=== PATIENT | female | born 1950 | race Caucasian/White ===

== ENCOUNTER 2017-07-28 06:45 | Day surgery (SDC) | payer MEDICARE ==
[~2017-07-28] VITALS: Ht 152.4 cm; Wt 86.4 kg
[~2017-07-28 06:45] MED LIST: ALBU8I INH; ALEN70TA39 OR; ALPR0.25 PO; AMLO2.5T PO; ASPI81TA82 PO; ATOR40TA PO; CALTTAB2 PO; DUONSOL2 NEB; ESCI10TA PO; FURO20TA PO; LISI40TA PO; OMEP20TA39 PO; OSTETAB7 PO; OXYB5TAB PO; UMEC1INH INH
[2017-07-28 07:03] VITALS: BP 158/93; PULSE 66; RESP 18; TEMP 98.7; O2SAT 97
[2017-07-28] MEDS ORDERED: ALEN1TAB48 PO (07:13)
[2017-07-28] MEDS ORDERED: LISI10TA3 PO (07:21)
[2017-07-28] MEDS ORDERED: AMLO2.5T PO (07:21)
[2017-07-28] MEDS ORDERED: BOSW5TAB PO (07:21)
[2017-07-28] MEDS ORDERED: LACTCAP8 PO (07:21)
[2017-07-28] MEDS ORDERED: BUDE3CAP PO (07:21)
[2017-07-28] MEDS ORDERED: CALC600T55 CHEW (07:21)
[2017-07-28] MEDS ORDERED: ESCI20TA PO (07:21)
[2017-07-28] MEDS ORDERED: ALPR2TAB3 PO (07:21)
[2017-07-28] MEDS ORDERED: MAGN500T2 PO (07:21)
[2017-07-28] MEDS ORDERED: OXYB5TAB10 PO (07:21)
[2017-07-28] MEDS ORDERED: VENTAER INH (07:21)
[2017-07-28] MEDS ORDERED: ASPI81CH CHEW (07:21)
[2017-07-28] MEDS ORDERED: OMEP20TA PO (07:21)
[2017-07-28] MEDS ORDERED: ATOR40TA16 PO (07:21)
[2017-07-28] MEDS: POVIDONE IODINE 5% (ANTISEPSIS KIT) 4 APPLICATIONS EACH NARE SCH ×3 (07:30→10:00)
[2017-07-28] MEDS ORDERED: SODIUM CHLORIDE 0.9% 1000 ML IV SCH (07:30)
[2017-07-28] MEDS: CHLORHEXIDINE GLUCONATE 2 % 1 PACK (2 CLOTHS) TOPICAL SCH ×3 (07:30→10:00)
[2017-07-28] MEDS ORDERED: MIDAZOLAM HCL 2 MG/2 ML VIAL ONE ×3 (08:39→09:25)
[2017-07-28] MEDS ORDERED: VANCOMYCIN HCL 1000 MG VIAL ONE (08:39)
[2017-07-28 09:43] VITALS: BP 151/82; PULSE 59; RESP 18; TEMP 97.8; O2SAT 97
--- NOTE | 2017-07-28 09:44 | PD.RAD ---
Post Procedure Progress Note Pre Procedure Diagnosis: (1) Atypical glandular cells of undetermined significance (RANDOLPH) on cervical Pap smear Post Procedure Diagnosis: (1) Atypical glandular cells of undetermined significance (RANDOLPH) on cervical Pap smear Procedure Date: Jul 28, 2017 Supervising Radiologist: Jose Maria Cheung Proceduralist/Assist: Kg Banks, RT(R), Dianne Goldsmith RT(R) Anesthesia: Conscious Sedation Plan of Activity Patient to Unit: ROPU Patient Condition: Good Additional Comments: placed right IJ port See PACS Report for procedural detail/treatment Jose Maria Cheung MD Jul 28, 2017 09:44
[2017-07-28] MEDS ORDERED: SODIUM CHLORIDE 0.9% FLUSH 10 ML FLUSH IVF PRN (09:45)
[2017-07-28 09:58] VITALS: BP 167/88; PULSE 62; RESP 17; O2SAT 99
[2017-07-28 10:28] VITALS: BP 126/72; PULSE 67; RESP 18; O2SAT 97
[2017-07-28 10:58] VITALS: BP 125/66; PULSE 96; RESP 17; O2SAT 96
--- NOTE | 2017-07-28 11:12 | RADRPT ---
EXAM DATE/TIME: 07/28/2017 08:37 [facility] COMPARISON: No previous studies available for comparison. INDICATIONS : Patient with uterine cancer in need of [id number] placement. MEDICAL HISTORY : COPD, HTN, HLD, Pancreatitis, Colitis, GERD, Uterine papillary serous carcinoma SURGICAL HISTORY : Bilateral salpingo-oophorectomy, Hysterectomy ENCOUNTER: Initial ACUITY: 1 month PAIN SCORE: 0/10 FLUORO TIME: 0.1 minutes IMAGE SERIES: 0 SEDATION TIME: 45 minutes ACCESS: Right internal jugular vein SEDATION: 1.) 5 mg midazolam (Versed) IV 2.) 250 mcg fentanyl (Sublimaze) IV Prophylactic antibiotics were administered with appropriate pre-procedure timing. Vancomycin within 2 hours of procedure, Ancef (or alternative) within 1 hour of procedure. DEVICE: 1. 8 Arabic single lumen Smart power port with vortex PROCEDURE : 1. Continuous pulse oximetry and EKG monitoring. 2. Intravenous conscious sedation. 3. Ultrasound guidance for venous access. 4. Fluoroscopic guided implantable central venous port placement. The patient was placed supine. The neck was prepped in sterile fashion. Full sterile technique was u sed, including cap, mask, sterile gloves and gown, and a large sterile sheet. Hand hygiene and 2% ch lorhexidine Betadine was utilized per protocol for cutaneous antisepsis with appropriate dry time for site. Sterile gel and sterile probe cover were utilized for ultrasound guidance. The skin and sub cutaneous tissues were infiltrated with local anesthetic solution. Under direct ultrasound guidance, central venous access was accomplished in the targeted vessel. The ultrasound images depicting access guidance were stored and saved to PACS for permanent record. A s ubcutaneous pocket was created using blunt dissection. The port was introduced to the pocket. The c atheter tubing was fed through a subcutaneous tunnel to the venotomy site. The catheter tubing was c ut to a suitable length and then was introduced through a valved Peel-Away sheath and positioned with catheter tubing tip at the cavo-atrial junction level. The pocket incision was closed with subcutic ular Vicryl suture. Steri-Strips were applied. The port was flushed and locked with heparin solutio n per protocol. Sterile dressing was applied to the site. The patient tolerated the procedure well. Conscious sedation was performed with the prescribed dosages and duration as above in the presence of an independent trained radiology nurse to assist in the monitoring of the patient. EKG and oximetry remained stable throughout the procedure. The patient tolerated the procedure well and there were no complications. The patient was sent to post anesthesia recovery in stable condition. CONCLUSION: Uncomplicated ultrasound and fluoroscopic guided implanted central venous port catheter placement as described in detail above. An 8 Arabic Power port was placed. Jose Maria Cheung MD on July 28, 2017 at 11:10 Board Certified Radiologist. This report was verified electronically.
== END 2017-07-28 11:48 | disposition home or self-care (01) ==
LOC: HROP 06:45 → HRIP 06:49 → HROP 11:48
PROVIDERS: ATTEND Obstetrics & Gynecology Gynecologic Oncology
DX: Z45.2 Encounter for adjustment and management of vascular access device (principal); C55 Malignant neoplasm of uterus, part unspecified
CPT/HCPCS: 36561; 76937; 77001; 99152; 99153; C1788; J1642; J2250; J3010; J3370; J7030

== ENCOUNTER 2017-08-13 15:59 | Inpatient (IN) | payer MEDICARE ==
[~2017-08-13 15:59] MED LIST changes: -ALBU8I INH; +ALEN1TAB48 PO; -ALEN70TA39 OR; -ALPR0.25 PO; +ALPR2TAB3 PO; +ASPI81CH CHEW; -ASPI81TA82 PO; -ATOR40TA PO; +ATOR40TA16 PO; +BOSW5TAB PO; +BUDE3CAP PO; +CALC600T55 CHEW; -CALTTAB2 PO; -DUONSOL2 NEB; -ESCI10TA PO; +ESCI20TA PO; -FURO20TA PO; +LACTCAP8 PO; +LISI10TA3 PO; -LISI40TA PO; +MAGN500T2 PO; +OMEP20TA PO; -OMEP20TA39 PO; -OSTETAB7 PO; -OXYB5TAB PO; +OXYB5TAB10 PO; -UMEC1INH INH; +VENTAER INH
[2017-08-13 16:06] VITALS: BP 134/63; PULSE 110; RESP 30; TEMP 101.9; O2SAT 93
[2017-08-13] MEDS ORDERED: SODIUM CHLOR 0.9% 1000 ML INJ 1,000 ML IV ONE (16:15)
[2017-08-13] MEDS ORDERED: ACETAMINOPHEN 325 MG TAB PO ONE (16:15)
--- NOTE | 2017-08-13 16:21 | PD ---
HPI Chief Complaint: Fever Time Seen by Provider: 16:02 Travel History International Travel<30 days: No Contact w/Intl Traveler<30days: No Traveled to known affect area: No History of Present Illness HPI 66-year-old female is currently undergoing chemotherapy for cervical cancer presents to the emergency department for evaluation of generalized weakness, shortness of breath, fever. Patient received her first chemotherapy treatment last , approximately 9 days ago. She states she has not felt well since her first chemotherapy treatment. She first noticed fever today. Patient also has history of hypertension, COPD, depression, hyperlipidemia. Patient reports decreased appetite. Her oncologist is Dr. Palomo. Her primary care physician is Dr. Fuentes. Fever here is 101.9 orally. She states that she took Tylenol 2 days ago, but hasn't had any Tylenol since. No abdominal pain. No nausea, vomiting, diarrhea. No chest pain. No headache. She denies any urinary symptoms. PFSH Past Medical History Cancer: No (CERVICAL) Cardiovascular Problems: No High Cholesterol: Yes Chemotherapy: Yes COPD: Yes Diabetes: No Diminished Hearing: No Endocrine: No Gastrointestinal Disorders: Yes (ACID REFLUX) Genitourinary: No Hepatitis: No Hiatal Hernia: No Hypertension: Yes Immune Disorder: No Implanted Vascular Access Dvce: Yes Musculoskeletal: Yes (ARTHRITIS) Neurologic: No Psychiatric: Yes (ANXIETY) Reproductive: No Respiratory: Yes (COPD) Thyroid Disease: No PNEUMOCCOCAL Vaccine (Year): 1 Menopausal: Yes Tubal Ligation: Yes Past Surgical History Abdominal Surgery: No Body Medical Devices: NONE Cardiac Surgery: No Ear Surgery: No Endocrine Surgery: No Eye Surgery: Yes (LEFT CATARACT) Genitourinary Surgery: No Gynecologic Surgery: Yes (C SECTION, REMOVAL FALLOPIAN TUBE) Hysterectomy: Yes Joint Replacement: Yes (LEFT TOTAL KNEE) Oral Surgery: Yes (TONSILLECTOMY) Pacemaker: No Thoracic Surgery: No Tonsillectomy: Yes Other Surgery: Yes (D AND C BREAST BX BENIGN HEMROIDS) Social History Alcohol Use: Yes (socially) Tobacco Use: No Substance Use: No Allergies-Medications (Allergen,Severity, Reaction): Coded Allergies: penicillin G (Unverified Allergy, Severe, UNKNOWN, 06/28/17) propoxyphene (Unverified Allergy, Severe, HEADACHE AND NAUSEA, 06/28/17) Reported Meds & Prescriptions Reported Meds & Active Scripts Active Reported Incruse Ellipta Inh (Umeclidinium Wagoner Inh) 0.0625 Mg/Act Inh 62.5 Mcg INH DAILY Alprazolam 0.25 Mg Tab 0.25 Mg PO BID PRN Osteo Bi-Flex One A Day (Ooqbcszms-Etnntmbvldx-Rwslqyp) 1 Tab 1 Tab PO BID Probiotic (Lactobacillus Acidophilus) 10 Billion Cell Cap 1 Cap PO TIDAC Magnesium Oxide 500 Mg Tab 500 Mg PO DAILY Calcium + D3 (Calcium Carbonate-Vitamin D) 600-200 Mg-Unit Tab 1 Tab CHEW BID Aspirin 81 Mg Chew 81 Mg CHEW DAILY Ventolin Hfa 18 GM Inh (Albuterol Sulfate) 90 Mcg/Act Aer 2 Puff INH Q4-6H PRN Ditropan (Oxybutynin Chloride) 5 Mg Tab 5 Mg PO Q12HR Omeprazole 20 Mg Tab 20 Mg PO DAILY Lisinopril 10 Mg Tab 10 Mg PO DAILY Escitalopram (Escitalopram Oxalate) 20 Mg Tab 20 Mg PO DAILY Budesonide DR (Budesonide) 3 Mg Capdr 3 Mg PO DAILY Atorvastatin (Atorvastatin Calcium) 40 Mg Tab 40 Mg PO HS Amlodipine (Amlodipine Besylate) 2.5 Mg Tab 2.5 Mg PO DAILY Alendronate (Alendronate Sodium) 70 Mg Tab 70 Mg PO Q7D Review of Systems Except as stated in HPI: all other systems reviewed are Neg Physical Exam Narrative GENERAL: Well-nourished, well-developed female patient, temp 101.9. SKIN: Focused skin assessment warm/dry. Patient has port to right chest wall. HEAD: Normocephalic. Atraumatic. EYES: No scleral icterus. No injection or drainage. NECK: Supple, trachea midline. No JVD or lymphadenopathy. CARDIOVASCULAR: Regular rhythm without murmurs, gallops, or rubs. Patient is tachycardic heart rate 110. RESPIRATORY: Breath sounds equal bilaterally. No accessory muscle use. Patient is tachypneic. Lung sounds diminished throughout. GASTROINTESTINAL: Abdomen soft, non-tender, nondistended. MUSCULOSKELETAL: No cyanosis, or edema. BACK: Nontender without obvious deformity. No CVA tenderness. Data Data Last Documented VS Vital Signs Date Time Temp Pulse Resp B/P (MAP) Pulse Ox O2 Delivery O2 Flow Rate FiO2 08/13/17 16:13 Room Air 08/13/17 16:08 30 93 08/13/17 16:06 101.9 110 134/63 (86) Orders Orders Electrocardiogram (08/13/17 16:10) Complete Blood Count With Diff (08/13/17 16:10) Comprehensive Metabolic Panel (08/13/17 16:10) Prothrombin Time / Inr (Pt) (08/13/17 16:10) Act Partial Throm Time (Ptt) (08/13/17 16:10) Lactic Acid Sepsis Protocol (08/13/17 16:10) Magnesium (Mg) (08/13/17 16:10) Ckmb (Isoenzyme) Profile (08/13/17 16:10) Troponin I (08/13/17 16:10) Urinalysis - C+S If Indicated (08/13/17 16:10) Influenzae A/B Antigen (08/13/17 16:10) Blood Culture (08/13/17 16:10) Chest, Single Ap (08/13/17 16:10) Blood Glucose (08/13/17 16:10) Ecg Monitoring (08/13/17 16:10) Iv Access Insert/Monitor (08/13/17 16:10) Oximetry (08/13/17 16:10) Oxygen Administration (08/13/17 16:10) Acetaminophen (Tylenol) (08/13/17 16:15) Sodium Chlor 0.9% 1000 Ml Inj (Ns 1000 M (08/13/17 16:15) Cefepime Inj (Maxipime Inj) (08/13/17 16:50) Azithromycin Inj (Zithromax Inj) (08/13/17 17:15) Isolation 08,20 (08/13/17 17:07) CKMB (08/13/17 16:15) CKMB% (08/13/17 16:15) Potassium Chloride (Kcl) (08/13/17 17:30) Admit To Inpatient (08/13/17 ) Code Status (08/13/17 17:32) Vital Signs (Adult) Q4H (08/13/17 17:32) Activity Oob With Assistance (08/13/17 17:32) Diet Heart Healthy (08/13/17 Dinner) Sodium Chloride 0.9% Flush (Ns Flush) (08/13/17 17:45) Sodium Chloride 0.9% Flush (Ns Flush) (08/13/17 21:00) Acetaminophen (Tylenol) (08/13/17 17:45) Ondansetron Inj (Zofran Inj) (08/13/17 17:45) Temazepam (Restoril) (08/13/17 17:45) Basic Metabolic Panel (Bmp) (08/14/17 06:00) Complete Blood Count With Diff (08/14/17 06:00) Electrocardiogram (08/13/17 17:32) Pt Request For Service (08/13/17 17:32) Scd Bilateral/Knee High SHANIQUA.BID (08/13/17 17:32) Naloxone Inj (Narcan Inj) (08/13/17 17:45) Magnesium Hydroxide Liq (Milk Of Magnesi (08/13/17 17:45) Inpatient Certification (08/13/17 ) Acetaminophen (Tylenol) (08/13/17 17:45) Ns + Kcl 20 Meq Inj (Ns + Kcl 20 Meq Inj (08/13/17 17:45) Admit Order (Ed Use Only) (08/13/17 17:41) Consult Research Soil Scientist Oncology (08/13/17 ) Labs Laboratory Tests Test 08/13/17 16:10 08/13/17 16:15 Lactic Acid Level 2.0 mmol/L White Blood Count 0.4 TH/MM3 Red Blood Count 3.04 MIL/MM3 Hemoglobin 9.6 GM/DL Hematocrit 29.3 % Mean Corpuscular Volume 96.3 FL Mean Corpuscular Hemoglobin 31.7 PG Mean Corpuscular Hemoglobin Concent 32.9 % Red Cell Distribution Width 13.7 % Platelet Count 66 TH/MM3 Mean Platelet Volume 8.6 FL CBC Comment AUTO DIFF Differential Total Cells Counted 25 Lymphocytes % 88 % Monocytes % 12 % Neutrophils # (Manual) 0.0 TH/MM3 Differential Comment FINAL DIFF MANUAL Platelet Estimate LOW Platelet Morphology Comment NORMAL Red Cell Morphology Comment NORMAL Prothrombin Time 15.6 SEC Prothromb Time International Ratio 1.4 RATIO Activated Partial Thromboplast Time 31.1 SEC Blood Urea Nitrogen 33 MG/DL Creatinine 1.65 MG/DL Random Glucose 78 MG/DL Total Protein 5.9 GM/DL Albumin 2.4 GM/DL Calcium Level 7.6 MG/DL Magnesium Level 1.1 MG/DL Alkaline Phosphatase 65 U/L Aspartate Amino Transf (AST/SGOT) 26 U/L Alanine Aminotransferase (ALT/SGPT) 33 U/L Total Bilirubin 0.9 MG/DL Sodium Level 132 MEQ/L Potassium Level 3.0 MEQ/L Chloride Level 101 MEQ/L Carbon Dioxide Level 18.8 MEQ/L Anion Gap 12 MEQ/L Estimat Glomerular Filtration Rate 31 ML/MIN Total Creatine Kinase 102 U/L Creatine Kinase MB 0.7 NG/ML Troponin I LESS THAN 0.02 NG/ML MDM Medical Decision Making Medical Screen Exam Complete: Yes Emergency Medical Condition: Yes Medical Record Reviewed: Yes Interpretation(s) chest x-ray - CONCLUSION: Small infiltrate lower lateral left lung. Differential Diagnosis Sepsis versus pneumonia versus UTI versus influenza versus electrolyte abnormality versus dehydration Narrative Course 66-year-old female presents to the emergency department for evaluation of generalized weakness, shortness breath, fever. She is currently undergoing chemotherapy for cervical cancer. EKG, CBC, CMP, lactic acid, magnesium, CK, troponin, PTT, PT/INR, UA, and influenza, blood cultures 2, chest x-ray are ordered and pending. Patient is given normal saline 1 L IV bolus, Tylenol 650 mg by mouth. EKG shows sinus tachycardia, heart rate 111. CBC shows ago. He has 0.4, neutropenia, 0.0 neutrophil count. CMP shows hyponatremia 132, hypokalemia at 3.0, BUN 33, creatinine 1.65. CK is 102. Troponin is less than 0.02. Magnesium is 1.1. Lactic acid is 2.0. PTT is 31.1, PT is 15.6, INR is 1.4. Influenza is negative. UA is pending. Chest x-ray shows small infiltrate lower lateral left lung. Patient started on cefepime 2 g IV, supervising 500 mg IV. I spoke to Dr. Monroe , oncologist, who will follow patient. Dr. Morgan accepted admission. Sepsis Criteria SIRS Criteria (2 or more): Temp > 100.9 or < 96.8, Heart rate over 90, WBC > 35095, < 4000 or > 10% bands Diagnosis Primary Impression: Neutropenic fever Additional Impressions: Sepsis Qualified Codes: A41.9 - Sepsis, unspecified organism Pneumonia Qualified Codes: J18.1 - Lobar pneumonia, unspecified organism Admitting Information Admitting Physician Requests: Admit Ledy Antonio Aug 13, 2017 16:21
[2017-08-13] MEDS ORDERED: UMEC1INH INH (16:24)
[2017-08-13] MEDS ORDERED: ALPR0.25 PO (16:24)
[2017-08-13 16:30] LABS: HEMATOCRIT 29.3 % (35.0-46.0); MEAN CELL VOLUME 96.3 FL (80.0-100.0); MEAN CORPUSCULAR HEMOGLOBIN 31.7 PG (27.0-34.0); MEAN CORPUSCULAR HGB CONC 32.9 % (32.0-36.0); PLATELET COUNT 66 TH/MM3 (150-450); RED BLOOD COUNT 3.04 MIL/MM3 (4.00-5.30); RED CELL DISTRIBUTION WIDTH 13.7 % (11.6-17.2); WHITE BLOOD COUNT 0.4 TH/MM3 (4.0-11.0)
[2017-08-13 16:38] LABS: HEMO FLAGS AUTO DIFF
--- NOTE | 2017-08-13 16:41 | RADRPT ---
EXAM DATE/TIME: 08/13/2017 16:27 [facility] COMPARISON: No previous studies available for comparison. INDICATIONS : Short of breath. MEDICAL HISTORY : Chronic obstructive pulmonary disease. Hypertension Gastroesophageal reflux disease. Uterine tanya llary serous carcinoma. Pancreatitis. Colitis. SURGICAL HISTORY : Hqjdx-[id number]-[id number]. ENCOUNTER: Initial ACUITY: 1 day PAIN SCORE: 0/10 LOCATION: Bilateral chest FINDINGS: There is a small infiltrate in the lower lateral lung causing obscuration of a portion of the lateral left hemidiaphragm. There is also some linear atelectasis or scarring in the lateral lower left cristina g. Right lung is clear. The heart is normal size. Gbyjmp-u-Tekl catheter tip projects over the dis wilma superior vena cava. CONCLUSION: Small infiltrate lower lateral left lung. Mike Mayorga MD on August 13, 2017 at 16:39 Board Certified Radiologist. This report was verified electronically.
[2017-08-13 16:47] LABS: APTT (PATIENT) 31.1 SEC (24.3-30.1); INTERNATIONAL NORMALIZED RATIO 1.4 RATIO; PROTHROMBIN TIME - PATIENT 15.6 SEC (9.8-11.6)
[2017-08-13] MEDS ORDERED: CEFEPIME INJ 2,000 MG in SODIUM CHLORIDE 0.9% INJ 100 ML IV STA (16:50)
[2017-08-13 17:01] LABS: WBC DIFF SAMPLE 25
[2017-08-13 17:02] LABS: PLATELET ESTIMATE SMEAR LOW (NORMAL); PLATELET MORPHOLOGY NORMAL (NORMAL); SCAN/DIFF FINAL DIFF MANUAL
[2017-08-13 17:05] LABS: ALT (GPT) 33 U/L (10-53); ANION GAP 12 MEQ/L (5-15); AST (GOT) 26 U/L (15-37); BICARBONATE 18.8 MEQ/L (21.0-32.0); BLOOD UREA NITROGEN 33 MG/DL (7-18); CHLORIDE 101 MEQ/L (98-107); GLOMERULAR FILTRATION RATE 31 ML/MIN (>89); MAGNESIUM 1.1 MG/DL (1.5-2.5); SODIUM (NA) 132 MEQ/L (136-145)
[2017-08-13 17:09] LABS: ALKALINE PHOSPHATASE 65 U/L (45-117); CREATINE KINASE 102 U/L (26-192); TOTAL BILIRUBIN ADULT 0.9 MG/DL (0.2-1.0)
[2017-08-13] MEDS ORDERED: AZITHROMYCIN INJ 500 MG in SODIUM CHLOR 0.9% 250 ML INJ 250 ML IV ONE (17:15)
[2017-08-13 17:21] LABS: CKMB 0.7 NG/ML (0.5-3.6)
[2017-08-13] MEDS ORDERED: POTASSIUM CHLORIDE 20 MEQ CONTROLLED RELEASE TAB PO ONE ×2 (17:30→21:00)
[2017-08-13] MEDS ORDERED: ACETAMINOPHEN 325 MG TAB PO PRN ×2 (17:45)
[2017-08-13] MEDS ORDERED: TEMAZEPAM 15 MG CAP PO PRN (17:45)
[2017-08-13] MEDS ORDERED: SODIUM CHLORIDE 0.9% FLUSH 10 ML FLUSH IV FLUSH PRN (17:45)
[2017-08-13] MEDS ORDERED: MAGNESIUM HYDROXIDE SUSP 30 ML CUP PO PRN (17:45)
[2017-08-13] MEDS ORDERED: NALOXONE HCL 0.4 MG/ML AMP IV PUSH PRN (17:45)
[2017-08-13 18:12] LABS: BACTERIA, URINE FEW /hpf; BLOOD, URINE TRACE (NEG); COMMENT (UR) CATH-CULTURE IND; CULTURE IF INDICATED CATH CULTURE IND; GLUCOSE,URINE NEG (NEG); KETONE, URINE NEG (NEG); NITRITE,URINE NEG (NEG); PH, URINE 7.5 (5.0-8.5); URINE COLOR YELLOW (YELLW/STRAW)
[2017-08-13] MEDS: ONDANSETRON HCL 4 MG/2 ML VIAL IVP PRN (18:26)
[2017-08-13 18:39] VITALS: BP 127/82; PULSE 89; RESP 24; TEMP 101.9; O2SAT 93
--- NOTE | 2017-08-13 19:04 | HHI.HP ---
HPI Service [facility] Hospitalists Primary Care Physician Waldo Barraza M.D. Admission Diagnosis neutropenic fever, sepsis, pneumonia Chief Complaint: fever Travel History International Travel<30 Days: No Contact w/Intl Traveler <30 Da: No Traveled to Known Affected Are: No History of Present Illness Patient is a pleasant 66-year-old female with history of hypertension, COPD, depression, GERD. Patient was recently diagnosed with uterine carcinoma. Patient follows with [facility] oncology, Dr. Pam Palomo. Patient was recently started on chemotherapy, Taxol and carboplatin. Patient underwent recent laparoscopic hysterectomy and bilateral salpingo-oophorectomy. Patient presented to the ER with complaint of fever, shortness of breath, generalized weakness. Patient underwent first chemotherapy treatment week ago. Patient is febrile here in the ER with MAXIMUM TEMPERATURE of 101.9. Patient is noted to be neutropenic. Case is discussed with covering oncologist, Dr. Lewis. Patient was given cefepime IV in the ER and this will be continued. Patient also be given Neupogen per Dr. Do. Patient complains of decreased appetite, but no nausea vomiting or diarrhea. Patient will be admitted to [facility] for further evaluation treatments. We will follow the blood culture results. Review of Systems Constitutional: COMPLAINS OF: Fever, Change in appetite, DENIES: Diaphoretic episodes, Fatigue, Weight gain, Weight loss, Chills, Dizziness, Night Sweats Endocrine: DENIES: Heat/cold intolerance, Polydipsia, Polyuria, Polyphagia Eyes: DENIES: Blurred vision, Diplopia, Eye inflammation, Eye pain, Vision loss , Photosensitivity, Double Vision Ears, nose, mouth, throat: DENIES: Tinnitus, Hearing loss, Vertigo, Nasal discharge, Oral lesions, Throat pain, Hoarseness, Ear Pain, Running Nose, Epistaxis, Sinus Pain, Toothache, Odynophagia Respiratory: DENIES: Apneas, Cough, Snoring, Wheezing, Hemoptysis, Sputum production, Shortness of breath Cardiovascular: DENIES: Chest pain, Palpitations, Syncope, Dyspnea on Exertion , PND, Lower Extremity Edema, Orthopnea, Claudication Gastrointestinal: DENIES: Abdominal pain, Black stools, Bloody stools, BRB per rectum, Constipation, Diarrhea, GERD, Nausea, Reflux, Vomiting, Difficulty Swallowing, Anorexia Genitourinary: DENIES: Abnormal vaginal bleeding, Dysmenorrhea, Dyspareunia, Sexual dysfunction, Urinary frequency, Urinary incontinence, Urgency, Hematuria , Dysuria, Nocturia, Vaginal discharge Musculoskeletal: DENIES: Joint pain, Muscle aches, Stiffness, Joint Swelling, Back pain, Neck pain Integumentary: DENIES: Abnormal pigmentation, Pruritus, Rash, Nail changes, Breast masses, Breast skin changes, Nipple discharge Hematologic/lymphatic: DENIES: Bruising, Lymphadenopathy Immunologic/allergic: DENIES: Eczema, Urticaria Neurologic: DENIES: Abnormal gait, Headache, Localized weakness, Paresthesias, Seizures, Speech Problems, Tremor, Poor Balance Psychiatric: DENIES: Anxiety, Confusion, Mood changes, Depression, Hallucinations, Agitation, Suicidal Ideation, Homicidal Ideation, Delusions, History of Bipolar, History of Schizophrenia Past Family Social History Past Medical History 1) hypertension 2) COPD 3) depression with anxiety 4) GERD 5) osteoarthritis 6) hyperlipidemia 7) colitis 8) history of pancreatitis Past Surgical History 1) left cataract surgery 2) section 3) tubal ligation 4) hysterectomy with bilateral salpingotomy and oophorectomy in 2016 5) total left knee arthroplasty in 2011 6) colonoscopy 2010 7) tonsillectomy 8) dilation and curettage 9) hemorrhoid surgery 10) benign breast biopsy Reported Medications Reported Meds & Active Scripts Active Reported Incruse Ellipta Inh (Umeclidinium [facility] [place] Inh) 0.0625 Mg/Act Inh 62.5 Mcg INH DAILY Alprazolam 0.25 Mg Tab 0.25 Mg PO BID PRN Osteo Bi-Flex One A Day (Yakdawyhe-Hbgteupoqmd-Nexgrff) 1 Tab 1 Tab PO BID Probiotic (Lactobacillus Acidophilus) 10 Billion Cell Cap 1 Cap PO TIDAC Magnesium Oxide 500 Mg Tab 500 Mg PO DAILY Calcium + D3 (Calcium Carbonate-Vitamin D) 600-200 Mg-Unit Tab 1 Tab CHEW BID Aspirin 81 Mg Chew 81 Mg CHEW DAILY Ventolin Hfa 18 GM Inh (Albuterol Sulfate) 90 Mcg/Act Aer 2 Puff INH Q4-6H PRN Ditropan (Oxybutynin Chloride) 5 Mg Tab 5 Mg PO Q12HR Omeprazole 20 Mg Tab 20 Mg PO DAILY Lisinopril 10 Mg Tab 10 Mg PO DAILY Escitalopram (Escitalopram Oxalate) 20 Mg Tab 20 Mg PO DAILY Budesonide DR (Budesonide) 3 Mg Capdr 3 Mg PO DAILY Atorvastatin (Atorvastatin Calcium) 40 Mg Tab 40 Mg PO HS Amlodipine (Amlodipine Besylate) 2.5 Mg Tab 2.5 Mg PO DAILY Alendronate (Alendronate Sodium) 70 Mg Tab 70 Mg PO Q7D Allergies: Coded Allergies: penicillin G (Unverified Allergy, Severe, UNKNOWN, 06/28/17) propoxyphene (Unverified Allergy, Severe, HEADACHE AND NAUSEA, 06/28/17) Family History Noncontributory Social History - - Former smoker, patient quit smoking 10 years ago - Occasional alcoholic beverage - No illicit street drugs Physical Exam Vital Signs Vital Signs Date Time Temp Pulse Resp B/P (MAP) Pulse Ox O2 Delivery O2 Flow Rate FiO2 08/13/17 18:39 101.9 89 24 127/82 (97) 93 Room Air 08/13/17 16:13 Room Air 08/13/17 16:13 Room Air 08/13/17 16:08 30 93 Room Air 08/13/17 16:06 101.9 110 30 134/63 (86) 93 Physical Exam GENERAL: This is a well-nourished, well-developed patient, in no apparent distress. SKIN: No rashes, ecchymoses or lesions. Cool and dry. HEAD: Atraumatic. Normocephalic. No temporal or scalp tenderness. EYES: Pupils equal round and reactive. Extraocular motions intact. No scleral icterus. No injection or drainage. ENT: Nose without bleeding, purulent drainage or septal hematoma. Throat without erythema, tonsillar hypertrophy or exudate. Uvula midline. Airway patent. NECK: Trachea midline. No JVD or lymphadenopathy. Supple, nontender, no meningeal signs. CARDIOVASCULAR: Regular rate and rhythm without murmurs, gallops, or rubs. RESPIRATORY: Clear to auscultation. Breath sounds equal bilaterally. No wheezes , rales, or rhonchi. GASTROINTESTINAL: Abdomen soft, non-tender, nondistended. No hepato-splenomegaly , or palpable masses. No guarding. MUSCULOSKELETAL: Extremities without clubbing, cyanosis, or edema. No joint tenderness, effusion, or edema noted. No calf tenderness. Negative Homans sign bilaterally. NEUROLOGICAL: Awake and alert. Cranial nerves II through XII intact. Motor and sensory grossly within normal limits. Five out of 5 muscle strength in all muscle groups. Normal speech. Laboratory Laboratory Tests Test 08/13/17 16:10 08/13/17 16:15 08/13/17 17:47 Lactic Acid Level 2.0 White Blood Count 0.4 Red Blood Count 3.04 Hemoglobin 9.6 Hematocrit 29.3 Mean Corpuscular Volume 96.3 Mean Corpuscular Hemoglobin 31.7 Mean Corpuscular Hemoglobin Concent 32.9 Red Cell Distribution Width 13.7 Platelet Count 66 Mean Platelet Volume 8.6 CBC Comment AUTO DIFF Differential Total Cells Counted 25 Lymphocytes % 88 Monocytes % 12 Neutrophils # (Manual) 0.0 Differential Comment FINAL DIFF MANUAL Platelet Estimate LOW Platelet Morphology Comment NORMAL Red Cell Morphology Comment NORMAL Prothrombin Time 15.6 Prothromb Time International Ratio 1.4 Activated Partial Thromboplast Time 31.1 Blood Urea Nitrogen 33 Creatinine 1.65 Random Glucose 78 Total Protein 5.9 Albumin 2.4 Calcium Level 7.6 Magnesium Level 1.1 Alkaline Phosphatase 65 Aspartate Amino Transf (AST/SGOT) 26 Alanine Aminotransferase (ALT/SGPT) 33 Total Bilirubin 0.9 Sodium Level 132 Potassium Level 3.0 Chloride Level 101 Carbon Dioxide Level 18.8 Anion Gap 12 Estimat Glomerular Filtration Rate 31 Total Creatine Kinase 102 Creatine Kinase MB 0.7 Troponin I LESS THAN 0.02 Urine Color YELLOW Urine Turbidity HAZY Urine pH 7.5 Urine Specific [place] 1.012 Urine Protein 30 Urine Glucose (UA) NEG Urine Ketones NEG Urine Occult Blood TRACE Urine Nitrite NEG Urine Bilirubin NEG Urine Urobilinogen LESS THAN 2.0 Urine Leukocyte Esterase NEG Urine WBC 3 Urine Bacteria FEW Microscopic Urinalysis Comment CATH-CULTURE IND Date/Time Source Procedure Growth Status 08/13/17 16:15 Blood Peripheral Aerobic Blood Culture Pending Received 08/13/17 16:15 Blood Peripheral Anaerobic Blood Culture Pending Received 08/13/17 16:15 Nasal Aspirate Influenza Types A,B Antigen (YASH) - Final NEGATIVE FOR FLU A AND B ANTIGEN.... Complete 08/13/17 17:47 Urine Clean Catch Urine Culture Pending Received Result Diagram: 08/13/17 1615 08/13/17 1615 Imaging Chest x-ray (08/13/17) small infiltrate at left lower lobe Septic Shock Reassessment Heart: Regular rate and rhythm Lungs: Clear Skin: Warm Peripheral Pulses: Bounding Right Radial Bounding Left Radial Bounding Right Popliteal Bounding Left Popliteal Bounding Right Dorsalis Pedis Bounding Left Dorsalis Pedis Bounding Right Posterior Tibial Bounding Left Posterior Tibial Capillary Refill: Brisk Caprini VTE Risk Assessment Caprini VTE Risk Assessment: Mod/High Risk (score >= 2) Caprini Risk Assessment Model Point Value = 1 Point Value = 2 Point Value = 3 Point Value = 5 Age 41-60 Minor surgery BMI > 25 kg/m2 Swollen legs Varicose veins or History of unexplained or recurrent spontaneous Oral contraceptives or hormone replacement Sepsis (< 1 month) Serious lung disease, including pneumonia (< 1 month) Abnormal pulmonary function Acute myocardial infarction Congestive heart failure (< 1 month) History of inflammatory bowel disease Medical patient at bed rest Age 61-74 Arthroscopic surgery Major open surgery (> 45 min) Laparoscopic surgery (> 45 min) Malignancy Confined to bed (> 72 hours) Immobilizing plaster cast Central venous access Age >= 75 History of VTE Family history of VTE Factor V Leiden Prothrombin [id number] Lupus anticoagulant Anticardiolipin antibodies Elevated serum homocysteine Heparin-induced thrombocytopenia Other congenital or acquired thrombophilia Stroke (< 1 month) Elective arthroplasty Hip, pelvis, or leg fracture Acute spinal cord injury (< 1 month) Prophylaxis Regimen Total Risk Factor Score Risk Level Prophylaxis Regimen 0-1 Low Early ambulation 2 Moderate Order ONE of the following: *Sequential Compression Device (SCD) *Heparin 5000 units SQ BID 3-4 Higher Order ONE of the following medications: *Heparin 5000 units SQ TID *Enoxaparin/Lovenox 40 mg SQ daily (WT < 150 kg, CrCl > 30 mL/min) *Enoxaparin/Lovenox 30 mg SQ daily (WT < 150 kg, CrCl > 10-29 mL/min) *Enoxaparin/Lovenox 30 mg SQ BID (WT < 150 kg, CrCl > 30 mL/min) AND/OR *Sequential Compression Device (SCD) 5 or more Highest Order ONE of the following medications: *Heparin 5000 units SQ TID (Preferred with Epidurals) *Enoxaparin/Lovenox 40 mg SQ daily (WT < 150 kg, CrCl > 30 mL/min) *Enoxaparin/Lovenox 30 mg SQ daily (WT < 150 kg, CrCl > 10-29 mL/min) *Enoxaparin/Lovenox 30 mg SQ BID (WT < 150 kg, CrCl > 30 mL/min) AND *Sequential Compression Device (SCD) Assessment and Plan Problem List: (1) Neutropenic fever ICD Codes: D70.9 - Neutropenia, unspecified; R50.81 - Fever presenting with conditions classified elsewhere Status: Acute Plan: - underlying uterine CA - Pt received first chemotherapy approximately 9 days ago, Taxol and carboplatin. - underlying LLL pneumonia - case d/w (08/13/17) Oncology, Dr. Lewis - continue Cefepime - neupogen - IVF - repeat CXR in AM - Case d/w pt's daughter Pavithra, who works as a guideman in [employer] [facility] (2) Pneumonia ICD Codes: J18.9 - Pneumonia, unspecified organism Status: Acute Plan: - see above (3) COPD (chronic obstructive pulmonary disease) ICD Codes: J44.9 - Chronic obstructive pulmonary disease, unspecified Plan: - symbicort - prn duonebs (4) HTN (hypertension) ICD Codes: I10 - Essential (primary) hypertension Status: Chronic Plan: - continue norvasc & lisinopril (5) GERD (gastroesophageal reflux disease) ICD Codes: K21.9 - Gastro-esophageal reflux disease without esophagitis Status: Chronic Plan: - continue PPI (6) Depression ICD Codes: F32.9 - Major depressive disorder, single episode, unspecified Status: Chronic Plan: - lexapro - prn xanax Physician Certification 2 Midnight Certification Type: Admission for Inpatient Services Order for Inpatient Services The services are ordered in accordance with Medicare regulations or non- Medicare payer requirements, as applicable. In the case of services not specified as inpatient-only, they are appropriately provided as inpatient services in accordance with the 2-midnight benchmark. Estimated LOS (days): 3 3 days is the estimated time the patient will need to remain in the hospital, assuming treatment plan goals are met and no additional complications. Post-Hospital Plan: SNF Problem Qualifiers (1) Pneumonia: Qualified Codes: J18.1 - Lobar pneumonia, unspecified organism (2) HTN (hypertension): Qualified Codes: I10 - Essential (primary) hypertension (3) GERD (gastroesophageal reflux disease): Qualified Codes: K21.9 - Gastro-esophageal reflux disease without esophagitis Sp Morgan DO Aug 13, 2017 19:04
[2017-08-13 19:20] VITALS: O2SAT 93
[2017-08-13] MEDS ORDERED: HYDROmorphone HCL PF 1 MG/ML VIAL IV PUSH PRN (19:30)
[2017-08-13] MEDS ORDERED: ACETAMINOPHEN/HYDROcodone 325 MG/5 MG TAB PO PRN (19:30)
[2017-08-13] MEDS ORDERED: LORazepam 2 MG/ML VIAL IV PRN (19:30)
--- NOTE | 2017-08-13 20:23 | MB ---
cc: SANDRINE ALVAREZ DATE OF CONSULTATION 08/13/17 REASON FOR CONSULTATION Patient with a diagnosis of endometrial carcinoma currently receiving carboplatin and Taxol who presents with subjective fevers and was found to be severely neutropenic. HISTORY OF PRESENT ILLNESS Ms. Payne is a 66-year-old female who has a diagnosis of stage I uterine papillary serous carcinoma who has undergone hysterectomy and bilateral salpingo-oophorectomy. She sees Dr. Palomo. The patient was started on systemic chemotherapy consisting of carboplatin and Taxol adjuvantly to treat microscopic disease. She had a PET CT scan prior to her chemotherapy which did not show any evidence of any obvious metastatic disease. She has received one cycle of chemotherapy which was given approximately one week ago. She now presents to the emergency department with subjective fevers, feeling unwell. She was found to be severely neutropenic with a WBC count of 0.4 and absent neutrophils. She has been admitted to the hospital. IV cefepime has been given to the patient. Blood cultures have been drawn. She had a chest x-ray on admission which shows a small infiltrate in the lower lateral lung causing obscuration of a portion of the left lateral hemidiaphragm. She complains of pain in her joints and abdominal pain. REVIEW OF SYSTEMS A comprehensive 14-point review of systems was completed which is negative except as described in HPI. PAST MEDICAL HISTORY 1. Stage I uterine papillary serous carcinoma status post hysterectomy and bilateral salpingo-oophorectomy. 2. Chronic obstructive pulmonary disease 3. History of colitis, 4. Hemorrhoids, 5. Hypertension, 6. Pancreatitis. PAST SURGICAL HISTORY 1. Hysterectomy in 2016 2. Tubal ligation 3. Total knee replacement 2011. 4. Colonoscopy in 2010. MEDICATIONS 1. Alendronate 70 mg daily. 2. Alprazolam as needed. 3. Amlodipine. 4. Aspirin tablet chewable 5. Atorvastatin 40 mg daily, 6. Budasonide 7. Calcium plus vitamin D3 8. Citalopram 20 mg p.o. daily. 9. Lisinopril 10 mg oral daily. 10. Magnesium capsule oral 11. Metoclopramide tablets oral p.r.n. 12. Multivitamins daily 13. Omeprazole 20 mg daily. 14. Zofran 4 mg p.o. q. 4-6 hours p.r.n. 15. Osteo-Bioflex regular strength 1 tablet daily. 16. Oxybutinin 5 mg 1 tablet p.o. daily 17. Probiotic capsule oral daily. 18. Ventolin HFA aerosol solution inhalation as needed. ALLERGIES DARVOCET DOXYCYCLINE PENICILLIN FAMILY HISTORY Reviewed and is noncontributory to this admission. SOCIAL HISTORY She is . She denies any tobacco abuse. No alcohol abuse. No illicit drug use. PHYSICAL EXAMINATION VITAL SIGNS: Blood pressure is 127/82, pulse is in the 80s, temperature is 101.9, O2 sats are 93% on room air. GENERAL: Acutely ill patient complains of abdominal pain and also joint aches and pains. HEENT: Pupils are equal, round, reactive to light. EOMI. No oral thrush. No oral lesion. NECK: Supple. No JVD, no bruits. No lymphadenopathy. CHEST: Clear to auscultation bilaterally. CARDIAC: S1-S2, tachycardic. ABDOMEN: Soft, diffusely tender. No rebound. EXTREMITIES: No edema, erythema or cyanosis. SKIN: Without any petechiae, lesion or bruises. NEUROLOGIC: No focal deficits. PSYCHIATRIC: Mood and affect is appropriate. No lymphadenopathy on exam. LABORATORY DATA WBC 0.4, hemoglobin 9.6, platelet count 66, ANC is zero. Serum chemistries - sodium 132, potassium 3.0, chloride 101, CO2 18.8, anion gap 12, BUN 33, creatinine 1.65, lactic acid is two, calcium is 7.6, AST 26, ALT 33, alk phos 55. Creatinine kinase 102. Troponins are less than 0.02, total protein 5.9, albumin is 2.4. IMAGING STUDIES Chest x-ray was reviewed. ASSESSMENT/PLAN This is a 66-year-old female with a diagnosis of stage I uterine papillary serous carcinoma who is status post hysterectomy, bilateral oophorectomy and currently receiving adjuvant systemic chemotherapy who presents to the hospital with fevers, chills and feeling unwell. 1. Neutropenic fever. ANC is zero. I would recommend IV cefepime 2 grams every 8 hours. Blood cultures have been drawn. We will follow up. Chest x-ray has been reviewed. There is a small infiltrate in the left lower lung. If she continues to spike fevers, we will broaden antibiotics to add IV vancomycin. We will obtain a UA and urine culture. I am starting this patient on daily Neupogen injections. 2. Normocytic anemia likely from chemotherapy. Obtain anemia studies. Threshold for packed red blood cell transfusion is hemoglobin of 7.5 or less. 3. Thrombocytopenia with platelet count of 66,000. She is currently not bleeding. Threshold for transfusing platelets is less than 10,000. 4. Hypokalemia with potassium of three. Replace potassium. 5. Hypomagnesemia. Magnesium is 1.1. Replace magnesium. 6. Malnutrition with hemoglobin of 2.4, encourage oral intake, neutropenic diet. Dietitian consult. 7. Stage I uterine papillary serous adenocarcinoma. She will follow up with Dr. Palomo outpatient. She would need dose adjustment of her systemic chemotherapy and will require Neulasta injections post chemotherapy here-on. Thank you for allowing me to participate in the care of this patient. I will continue to follow this patient along. MD CONNER Shore/ /6:42 PM /8:00 PM MTDD
[2017-08-13 20:30] VITALS: BP 101/57; PULSE 106; RESP 19; TEMP 98.9; O2SAT 95
--- NOTE | 2017-08-13 20:44 | RADRPT ---
EXAM DATE/TIME: 08/13/2017 19:48 [place] COMPARISON: No previous studies available for comparison. INDICATIONS : Abdominal pain. MEDICAL HISTORY : Pancreatitis. Gastroesophageal reflux disease. Colitis. Uterine papillary serous carcinoma. SURGICAL HISTORY : Hysterectomy. ENCOUNTER: Initial ACUITY: 1 week PAIN SCORE: 8/10 LOCATION: Bilateral Abdomen FINDINGS: There are multiple gas-filled loops of bowel in the upper abdomen, normal diameter on the left side, with 2 lobes measuring up to 6.3 cm the right hypogastric region. No mucosal details seen and cannot differentiate between small or large bowel. The location suggests several dilated loops of small sylvia wel. Osseous structures are grossly intact. No gas in the rectum. CONCLUSION: Nonspecific bowel gas pattern with several dilated loops of bowel in the right hypogastric region mariya suring up to 6.3 cm, possibly dilated loops of small bowel. Recommend serial films. Mike Mayorga MD on August 13, 2017 at 20:40 Board Certified Radiologist. This report was verified electronically.
[2017-08-13] MEDS: NS + KCL 20 MEQ INJ 1,000 ML IV SCH (20:45)
[2017-08-13] MEDS: FILGRASTIM 480 MCG/1.6 ML VIAL SQ SCH (20:55)
[2017-08-13] MEDS: SODIUM CHLORIDE 0.9% FLUSH 10 ML FLUSH IV FLUSH SCH (21:01)
[2017-08-13] MEDS ORDERED: PANTOPRAZOLE SOD 40 MG DELAYED RELEASE TAB PO SCH (22:30)
[2017-08-13] MEDS ORDERED: CALCIUM CARBONATE 500 MG CHEWABLE TAB PO SCH (22:30)
[2017-08-13] MEDS: BUDESONIDE-FORMOTEROL 160/4.5 MCG INHALER INH SCH (22:47)
[2017-08-14] VITALS (7 sets, daily range): BP systolic 89–117; BP diastolic 58–85; PULSE 95–117; RESP 18–20; TEMP 96.1–98; O2SAT 93–99
--- NOTE | 2017-08-14 01:19 | EKG ---
Date Performed: 08/13/2017 Time Performed: 16:18:07 PTAGE: 66 years EKG: SINUS TACHYCARDIA LOW QRS VOLTAGE IN PRECORDIAL LEADS INFERIOR MYOCARDIAL INFARCTION ABNORM AL ECG NO PREVIOUS TRACING DOCTOR: Prashanth Jerez Interpretating Date/Time 08/14/2017 01:17:50
[2017-08-14] MEDS ORDERED: METRONIDAZOLE 500 MG/100 ML ISONTONIC SOLN IV SCH (02:15)
[2017-08-14] MEDS: RESP: ALBUTEROL 2.5 MG/IPRATROPIUM 0.5 MG NEB (PRN) NEB ×2 (03:13→12:07)
[2017-08-14 04:18] LABS: C. DIFF EPI 027 PRESUMPTIVE NEGATIVE (NEGATIVE)
[2017-08-14] MEDS ORDERED: CEFIXIME SUSP 100 MG/5 ML 50 ML BTL PO SCH (06:00)
[2017-08-14 06:06] LABS: HEMATOCRIT 26.3 % (35.0-46.0); MEAN CELL VOLUME 95.1 FL (80.0-100.0); MEAN CORPUSCULAR HEMOGLOBIN 32.7 PG (27.0-34.0); MEAN CORPUSCULAR HGB CONC 34.4 % (32.0-36.0); PLATELET COUNT 50 TH/MM3 (150-450); RED BLOOD COUNT 2.77 MIL/MM3 (4.00-5.30); RED CELL DISTRIBUTION WIDTH 13.6 % (11.6-17.2); WHITE BLOOD COUNT 0.7 TH/MM3 (4.0-11.0)
[2017-08-14 06:09] LABS: HEMO FLAGS AUTO DIFF
[2017-08-14] MEDS: NS + KCL 20 MEQ INJ 1,000 ML IV SCH ×5 (06:16→22:01)
[2017-08-14 06:36] LABS: BICARBONATE 17.7 MEQ/L (21.0-32.0); POTASSIUM 3.5 MEQ/L (3.5-5.1)
[2017-08-14 06:58] LABS: CALCIUM-PROTEIN CORRECTED 7.7 MG/DL (8.5-10.1)
[2017-08-14 07:09] LABS: BANDS 30 % (0-6); EOSINOPHILS 4 % (0-4); NEUTROPHIL # MANUAL DIFF 0.3 TH/MM3 (1.8-7.7); PLATELET ESTIMATE SMEAR LOW (NORMAL); PLATELET MORPHOLOGY NORMAL (NORMAL); POLYS (SEG NEUTROPHILS) 16 % (16-70); SCAN/DIFF FINAL DIFF MANUAL; WBC DIFF SAMPLE 50
[2017-08-14 07:10] LABS: DOHLE BODIES PRESENT (NONE SEEN); TOXIC GRANULATION 1+ (NORMAL)
[2017-08-14] MEDS ORDERED: LORazepam 0.5 MG TAB PO ONE (08:15)
[2017-08-14] MEDS: ONDANSETRON HCL 4 MG/2 ML VIAL IVP PRN (08:21)
[2017-08-14] MEDS: BUDESONIDE-FORMOTEROL 160/4.5 MCG INHALER INH SCH ×2 (08:23→21:57)
[2017-08-14] MEDS: CEFEPIME INJ 2,000 MG in SODIUM CHLORIDE 0.9% INJ 100 ML IV SCH ×2 (08:23→17:10)
[2017-08-14] MEDS: PANTOPRAZOLE SOD 40 MG DELAYED RELEASE TAB PO SCH (08:24)
[2017-08-14] MEDS: FILGRASTIM 480 MCG/1.6 ML VIAL SQ SCH (08:25)
[2017-08-14] MEDS: SODIUM CHLORIDE 0.9% FLUSH 10 ML FLUSH IV FLUSH SCH ×2 (08:25→21:57)
[2017-08-14] MEDS: NYSTAT/DIPHENHY/LIDO MOUTHWASH (Adult) 120ML SWISH-SWAL SCH ×4 (10:00→21:57)
[2017-08-14] MEDS ORDERED: INFLUENZA VIRUS VACCINE (QUADRIVALENT) 0.5 ML SYR IM ONE (10:00)
--- NOTE | 2017-08-14 10:04 | PD.ONC.PN ---
Subjective Subjective Remarks Tmax 101.9 yesterday evening. Patient resting in bed. She is feeling anxious. Reports diffuse body aches. Wants to work with physical therapy because she is afraid she will get too weak if she stays in bed. Objective Data Date Time Temp Pulse Resp B/P (MAP) Pulse Ox O2 Delivery O2 Flow Rate FiO2 08/14/17 08:00 97.0 101 18 94/65 (75) 93 08/14/17 05:45 96/58 (71) Automatic Cuff 08/14/17 00:04 20 08/14/17 00:00 98.0 104 19 89/66 (74) 94 08/14/17 00:00 94 Nasal Cannula 1.00 08/13/17 22:00 19 08/13/17 20:30 98.9 106 19 101/57 (72) 95 08/13/17 19:20 93 08/13/17 18:39 101.9 89 24 127/82 (97) 93 Room Air 08/13/17 16:13 Room Air 08/13/17 16:13 Room Air 08/13/17 16:08 30 93 Room Air 08/13/17 16:06 101.9 110 30 134/63 (86) 93 08/14/17 08/14/17 08/14/17 07:00 15:00 23:00 Intake Total 1307 ml Balance 1307 ml Result Diagram: 08/14/17 0545 08/14/17 0545 Laboratory Results Laboratory Tests Test 08/13/17 16:10 08/13/17 16:15 08/13/17 17:47 08/14/17 01:40 Lactic Acid Level 2.0 mmol/L White Blood Count 0.4 TH/MM3 Red Blood Count 3.04 MIL/MM3 Hemoglobin 9.6 GM/DL Hematocrit 29.3 % Mean Corpuscular Volume 96.3 FL Mean Corpuscular Hemoglobin 31.7 PG Mean Corpuscular Hemoglobin Concent 32.9 % Red Cell Distribution Width 13.7 % Platelet Count 66 TH/MM3 Mean Platelet Volume 8.6 FL CBC Comment AUTO DIFF Differential Total Cells Counted 25 Lymphocytes % 88 % Monocytes % 12 % Neutrophils # (Manual) 0.0 TH/MM3 Differential Comment FINAL DIFF MANUAL Platelet Estimate LOW Platelet Morphology Comment NORMAL Red Cell Morphology Comment NORMAL Prothrombin Time 15.6 SEC Prothromb Time International Ratio 1.4 RATIO Activated Partial Thromboplast Time 31.1 SEC Blood Urea Nitrogen 33 MG/DL Creatinine 1.65 MG/DL Random Glucose 78 MG/DL Total Protein 5.9 GM/DL Albumin 2.4 GM/DL Calcium Level 7.6 MG/DL Magnesium Level 1.1 MG/DL Alkaline Phosphatase 65 U/L Aspartate Amino Transf (AST/SGOT) 26 U/L Alanine Aminotransferase (ALT/SGPT) 33 U/L Total Bilirubin 0.9 MG/DL Sodium Level 132 MEQ/L Potassium Level 3.0 MEQ/L Chloride Level 101 MEQ/L Carbon Dioxide Level 18.8 MEQ/L Anion Gap 12 MEQ/L Estimat Glomerular Filtration Rate 31 ML/MIN Total Creatine Kinase 102 U/L Creatine Kinase MB 0.7 NG/ML Troponin I LESS THAN 0.02 NG/ML Urine Color YELLOW Urine Turbidity HAZY Urine pH 7.5 Urine Specific [place] 1.012 Urine Protein 30 mg/dL Urine Glucose (UA) NEG mg/dL Urine Ketones NEG mg/dL Urine Occult Blood TRACE Urine Nitrite NEG Urine Bilirubin NEG Urine Urobilinogen LESS THAN 2.0 MG/DL Urine Leukocyte Esterase NEG Urine WBC 3 /hpf Urine Bacteria FEW /hpf Microscopic Urinalysis Comment CATH-CULTURE IND Stool C. difficile Toxin (PCR) NEGATIVE Stl C. difficile Toxin Epiderm 027 PRESUMPTIVE NEGATIVE Test 08/14/17 05:45 White Blood Count 0.7 TH/MM3 Red Blood Count 2.77 MIL/MM3 Hemoglobin 9.1 GM/DL Hematocrit 26.3 % Mean Corpuscular Volume 95.1 FL Mean Corpuscular Hemoglobin 32.7 PG Mean Corpuscular Hemoglobin Concent 34.4 % Red Cell Distribution Width 13.6 % Platelet Count 50 TH/MM3 Mean Platelet Volume 8.8 FL CBC Comment AUTO DIFF Differential Total Cells Counted 50 Neutrophils % (Manual) 16 % Band Neutrophils % 30 % Lymphocytes % 34 % Monocytes % 16 % Eosinophils % 4 % Neutrophils # (Manual) 0.3 TH/MM3 Differential Comment FINAL DIFF MANUAL Toxic Granulation 1+ Dohle Bodies PRESENT Platelet Estimate LOW Platelet Morphology Comment NORMAL Red Cell Morphology Comment NORMAL Blood Urea Nitrogen 39 MG/DL Creatinine 1.86 MG/DL Random Glucose 62 MG/DL Total Protein 5.8 GM/DL Calcium Level 7.0 MG/DL Sodium Level 135 MEQ/L Potassium Level 3.5 MEQ/L Chloride Level 105 MEQ/L Carbon Dioxide Level 17.7 MEQ/L Anion Gap 12 MEQ/L Estimat Glomerular Filtration Rate 27 ML/MIN Protein Corrected Calcium 7.7 MG/DL Culture Results Microbiology Date/Time Source Procedure Growth Status 08/13/17 16:15 Blood Peripheral Aerobic Blood Culture Pending Received 08/13/17 16:15 Blood Peripheral Anaerobic Blood Culture Pending Received 08/13/17 16:10 Blood Peripheral Aerobic Blood Culture Pending Received 08/13/17 16:10 Blood Peripheral Anaerobic Blood Culture Pending Received 08/13/17 16:15 Nasal Aspirate Influenza Types A,B Antigen (YASH) - Final NEGATIVE FOR FLU A AND B ANTIGEN.... Complete 08/13/17 17:47 Urine Clean Catch Urine Culture Pending Received Imaging Studies Last 24 hours Impressions Chest X-Ray 08/13/17 1610 Signed Impressions: Service Date/Time: Tuesday, August 13, 2017 16:27 - CONCLUSION: Small infiltrate lower lateral left lung. Mike Mayorga MD Administered Medications Medications (Trade) Dose Ordered Sig/Radha Route PRN Reason Start Time Stop Time Status Last Admin Dose Admin Sodium Chloride (NS Flush) 2 ml BID IV FLUSH 08/13/17 21:00 08/14/17 08:25 Ondansetron HCl (Zofran Inj) 4 mg Q6H PRN IVP NAUSEA OR VOMITING 08/13/17 17:45 08/14/17 08:21 Potassium Chloride/Sodium Chloride 1,000 ml @ 85 mls/hr [id number] IV 08/13/17 18:30 08/13/17 20:45 Budesonide/ Formoterol Fumarate (Symbicort 160-4.5 Inh) 2 puff Q12HR INH 08/13/17 21:00 08/14/17 08:23 Albuterol/ Ipratropium (Duoneb Neb) 1 ampule Q6HR NEB PRN NEB SOB/WHEEZING 08/13/17 18:15 08/14/17 03:13 Filgrastim (Neupogen Inj) 480 mcg DAILY SQ 08/13/17 19:00 08/14/17 08:25 Acetaminophen/ Hydrocodone Bitart ([place] 5-325 Mg) 1 tab Q6H PRN PO pain 1-5 08/13/17 19:30 08/13/17 20:45 Hydromorphone HCl (Dilaudid Pf Inj) 0.5 mg Q6H PRN IV PUSH pain 6-10 08/13/17 19:30 08/13/17 22:52 Pantoprazole Sodium (Protonix) 40 mg DAILY PO 08/14/17 09:00 08/14/17 08:24 Cefepime HCl 2000 mg/Sodium Chloride 100 ml @ 200 mls/hr Q8H IV 08/14/17 09:00 08/14/17 08:23 Potassium Chloride/Sodium Chloride 1,000 ml @ 85 mls/hr [id number] IV 08/14/17 09:00 08/14/17 09:27 Objective Remarks GENERAL: Middle aged female supine in bed, anxious. SKIN: Warm and dry. HEAD: Normocephalic. EYES: No injection or drainage. NECK: Supple, trachea midline. CARDIOVASCULAR: Regular rate and rhythm RESPIRATORY: diminished at bases, anterior rivas clear. on 1L O2 via NC GASTROINTESTINAL: Abdomen soft, non-tender, nondistended. EXTREMITIES: No cyanosis NEUROLOGICAL: awake and alert, normal speech. moving all extremities. Assessment/Plan Problem List: (1) Endometrial cancer ICD Codes: C54.1 - Malignant neoplasm of endometrium Plan: h/o stage I uterine papillary serous carcinoma --s/p hysterectomy and bilateral salpingo-oophorectomy. She sees Dr. Palomo. --carboplatin and Taxol --last given one week ago. (2) Neutropenic fever ICD Codes: D70.9 - Neutropenia, unspecified; R50.81 - Fever presenting with conditions classified elsewhere Status: Acute Plan: -CXR shows LLL consolidation --on Cefepime --BC pending --on Neupogen (3) Pancytopenia due to antineoplastic chemotherapy ICD Codes: D61.810 - Antineoplastic chemotherapy induced pancytopenia; T45.1X5A - Adverse effect of antineoplastic and immunosuppressive drugs, initial encounter Plan: --Threshold for packed red blood cell transfusion is hemoglobin of 7.5 or less. --Threshold for transfusing platelets is less than 10,000. --on Neupogen Assessment 66y/o female with endometrial carcinoma currently receiving carboplatin and Taxol admitted with neutropenic fever. h/o Stage I uterine papillary serous carcinoma status post hysterectomy and bilateral salpingo-oophorectomy. Chronic obstructive pulmonary disease History of colitis, Hemorrhoids, Hypertension, Pancreatitis. Plan 1. continue antibiotics 2. await blood cultures 3. consult physical therapy 4. patient had an episode of coughing with drinking fluids this morning, will consult speech therapy. Attending Statement The exam, history, and the medical decision-making described in the above note were completed with the assistance of the mid-level provider. I reviewed and agree with the findings presented. I attest that I had a [id number]-sy-[id number] encounter with the patient on the same day, and personally performed and documented my assessment and findings in the medical record. Blood cultures pending chest X-ray today Add Vancomycin remains severely neutropenic continue daily neupogen Anemia Hb 9.1 Thrombocytopenia due to chemotherapy slightly worse--no bleeding./// no transfusion d/w rn o/n events reviewed Georgiana Melenedz Aug 14, 2017 10:04 Beniot Lewis MD Aug 14, 2017 11:40
[2017-08-14] MEDS: ALPRAZolam 0.25 MG TAB PO PRN (11:57)
[2017-08-14] MEDS ORDERED: CALCIUM GLUCONATE INJ 1 GM in SODIUM CHLORIDE 0.9% INJ 100 ML IV ONE (12:00)
--- NOTE | 2017-08-14 12:01 | HHI.PR ---
Subjective Remarks Pt in good spirits today. Less painful, but somewhat anxious. Pt c/o tongue pain Objective Vitals Vital Signs Date Time Temp Pulse Resp B/P (MAP) Pulse Ox O2 Delivery O2 Flow Rate FiO2 08/14/17 08:00 97.0 101 18 94/65 (75) 93 08/14/17 05:45 96/58 (71) Automatic Cuff 08/14/17 00:04 20 08/14/17 00:00 98.0 104 19 89/66 (74) 94 08/14/17 00:00 94 Nasal Cannula 1.00 08/13/17 22:00 19 08/13/17 20:30 98.9 106 19 101/57 (72) 95 08/13/17 19:20 93 08/13/17 18:39 101.9 89 24 127/82 (97) 93 Room Air 08/13/17 16:13 Room Air 08/13/17 16:13 Room Air 08/13/17 16:08 30 93 Room Air 08/13/17 16:06 101.9 110 30 134/63 (86) 93 08/14/17 08/14/17 08/15/17 15:00 23:00 07:00 Intake Total 1550 ml Balance 1550 ml IV Total 1550 ml Result Diagram: 08/14/17 0545 08/14/17 0545 Imaging Chest x-ray (08/13/17) small infiltrate at left lower lobe Objective Remarks GENERAL: This is a well-nourished, well-developed patient, in no apparent distress. CARDIOVASCULAR: Regular rate and rhythm without murmurs, gallops, or rubs. RESPIRATORY: Clear to auscultation. Breath sounds equal bilaterally. No wheezes , rales, or rhonchi. GASTROINTESTINAL: Abdomen soft, non-tender, nondistended. Normal active bowel sounds MUSCULOSKELETAL: Extremities without clubbing, cyanosis, or edema. NEURO: Alert & Oriented x4 to person, place, time, situation. Moves all ext x4 A/P Problem List: (1) Neutropenic fever ICD Codes: D70.9 - Neutropenia, unspecified; R50.81 - Fever presenting with conditions classified elsewhere Status: Acute Plan: - underlying uterine CA - Pt received first chemotherapy approximately 9 days ago, Taxol and carboplatin. - underlying LLL pneumonia - case d/w (08/13/17) Oncology, Dr. Lewis - continue Cefepime - start Vancomycin - neupogen - IVF - repeat CXR in AM 08/15/17 - Case d/w pt's daughter Pavithra, who works as a channel rebuilder in [place] & son-in-law who works as a Hospitalist Physician in [place] (2) Pneumonia ICD Codes: J18.9 - Pneumonia, unspecified organism Status: Acute Plan: - see above (3) Hypocalcemia ICD Codes: E83.51 - Hypocalcemia Plan: - likely nutritional - Calcium gluconate 1g IV - encourage PO intake. - repeat BMP in AM (4) COPD (chronic obstructive pulmonary disease) ICD Codes: J44.9 - Chronic obstructive pulmonary disease, unspecified Plan: - symbicort - prn duonebs (5) HTN (hypertension) ICD Codes: I10 - Essential (primary) hypertension Status: Chronic Plan: - continue norvasc & lisinopril (6) GERD (gastroesophageal reflux disease) ICD Codes: K21.9 - Gastro-esophageal reflux disease without esophagitis Status: Chronic Plan: - continue PPI (7) Depression ICD Codes: F32.9 - Major depressive disorder, single episode, unspecified Status: Chronic Plan: - lexapro - prn xanax Problem Qualifiers (1) Pneumonia: Qualified Codes: J18.1 - Lobar pneumonia, unspecified organism (2) HTN (hypertension): Qualified Codes: I10 - Essential (primary) hypertension (3) GERD (gastroesophageal reflux disease): Qualified Codes: K21.9 - Gastro-esophageal reflux disease without esophagitis Sp Morgan DO Aug 14, 2017 12:01
[2017-08-14] MEDS ORDERED: VANCOMYCIN INJ 1,000 MG in SODIUM CHLOR 0.9% 250 ML INJ 250 ML IV ONE (12:15)
[2017-08-14] MEDS ORDERED: Vancomycin Consult Pharmacy 1 EA OTHER SCH (12:15)
--- NOTE | 2017-08-14 13:51 | RADRPT ---
EXAM DATE/TIME: 08/14/2017 12:53 [facility] COMPARISON: CHEST SINGLE AP, August 13, 2017, 16:27. INDICATIONS : Shortness of breath and chest pain. MEDICAL HISTORY : Pancreatitis. Gastroesophageal reflux disease. Colitis. Uterine papillary serous carcinoma. SURGICAL HISTORY : Hysterectomy. Port placement. ENCOUNTER: Initial ACUITY: 1 day PAIN SCORE: 2/10 LOCATION: Bilateral chest FINDINGS: A single view of the chest demonstrates the lungs to be symmetrically aerated without evidence of mas s, infiltrate or effusion. The cardiomediastinal contours are unremarkable. Osseous structures are intact. CONCLUSION: Normal examination. Scarring left lung base. Right-sided Laabmw-c-Pots in excellent position. Alexis Mcduffie MD on August 14, 2017 at 13:49 Board Certified Radiologist. This report was verified electronically.
[2017-08-14] MEDS ORDERED: VANCOMYCIN INJ 1,500 MG in SODIUM CHLORID 0.9% 500 ML INJ 500 ML IV ONE (14:00)
[2017-08-15] VITALS: BP 100/55; PULSE 89; RESP 18; TEMP 96.6; O2SAT 97
[2017-08-15] MEDS: CEFEPIME INJ 2,000 MG in SODIUM CHLORIDE 0.9% INJ 100 ML IV SCH ×3 (02:03→20:56)
[2017-08-15] MEDS: NS + KCL 20 MEQ INJ 1,000 ML IV SCH ×3 (02:05→19:18)
[2017-08-15 04:00] VITALS: BP 122/68; PULSE 86; RESP 19; TEMP 97.9; O2SAT 96
[2017-08-15 05:03] LABS: HEMATOCRIT 24.2 % (35.0-46.0); MEAN CELL VOLUME 94.3 FL (80.0-100.0); MEAN CORPUSCULAR HEMOGLOBIN 32.7 PG (27.0-34.0); MEAN CORPUSCULAR HGB CONC 34.7 % (32.0-36.0); PLATELET COUNT 46 TH/MM3 (150-450); RED BLOOD COUNT 2.57 MIL/MM3 (4.00-5.30); RED CELL DISTRIBUTION WIDTH 13.6 % (11.6-17.2); WHITE BLOOD COUNT 2.5 TH/MM3 (4.0-11.0)
[2017-08-15 05:05] LABS: HEMO FLAGS AUTO DIFF
[2017-08-15 05:24] LABS: BICARBONATE 17.2 MEQ/L (21.0-32.0); MAGNESIUM 1.6 MG/DL (1.5-2.5); POTASSIUM 3.1 MEQ/L (3.5-5.1)
[2017-08-15 05:36] LABS: CALCIUM-PROTEIN CORRECTED 7.5 MG/DL (8.5-10.1)
[2017-08-15] MEDS: RESP: ALBUTEROL 2.5 MG/IPRATROPIUM 0.5 MG NEB (PRN) NEB (06:07)
[2017-08-15 07:01] LABS: BANDS 28 % (0-6); EOSINOPHILS 1 % (0-4); NEUTROPHIL # MANUAL DIFF 1.5 TH/MM3 (1.8-7.7); PLATELET ESTIMATE SMEAR LOW (NORMAL); PLATELET MORPHOLOGY NORMAL (NORMAL); POLYS (SEG NEUTROPHILS) 30 % (16-70); SCAN/DIFF FINAL DIFF MANUAL; WBC DIFF SAMPLE 100
[2017-08-15 07:03] LABS: TOXIC GRANULATION 1+ (NORMAL)
--- NOTE | 2017-08-15 08:45 | RADRPT ---
EXAM DATE/TIME: 08/15/2017 08:38 [facility] COMPARISON: CHEST SINGLE AP, August 14, 2017, 12:53. INDICATIONS : Shortness of breath; pneumonia. MEDICAL HISTORY : Gastroesophageal reflux disease. Chronic obstructive pulmonary disease. Hypertension. Uterine p apillary serous carcinoma. Pancreatitis. Colitis. SURGICAL HISTORY : [id number]. ENCOUNTER: Subsequent ACUITY: 3 days PAIN SCORE: 0/10 LOCATION: Bilateral chest FINDINGS: The cardiac silhouette is enlarged in transverse diameter. Abewkt-x-Iwqd is in place via right recording studio intern al jugular approach with its tip in the superior vena cava. There is subsegmental atelectasis in the left base. There is subsegmental atelectasis in the right base. No pleural effusions are identified. CONCLUSION: 1. Cardiomegaly. Subsegmental atelectasis both bases. Nate Feliciano MD on August 15, 2017 at 8:43 Board Certified Radiologist. This report was verified electronically.
[2017-08-15] MEDS: NYSTAT/DIPHENHY/LIDO MOUTHWASH (Adult) 120ML SWISH-SWAL SCH ×4 (09:04→21:10)
[2017-08-15] MEDS: PANTOPRAZOLE SOD 40 MG DELAYED RELEASE TAB PO SCH (09:13)
[2017-08-15] MEDS: FILGRASTIM 480 MCG/1.6 ML VIAL SQ SCH (09:17)
[2017-08-15] MEDS: SODIUM CHLORIDE 0.9% FLUSH 10 ML FLUSH IV FLUSH SCH ×2 (09:20→21:00)
[2017-08-15] MEDS: BUDESONIDE-FORMOTEROL 160/4.5 MCG INHALER INH SCH ×2 (09:22→20:54)
[2017-08-15 10:00] VITALS: BP 104/67; PULSE 91; TEMP 96.1; O2SAT 96
[2017-08-15] MEDS ORDERED: VANCOMYCIN 1,500 MG/NS 500 ML IV ONE ×2 (11:00)
--- NOTE | 2017-08-15 11:14 | HHI.PR ---
Subjective Remarks DOING BETTER. Objective Vitals heart reg lung cta abd s/nt ext no edema Vital Signs Date Time Temp Pulse Resp B/P (MAP) Pulse Ox O2 Delivery O2 Flow Rate FiO2 08/15/17 10:00 96.1 91 104/67 (79) 96 08/15/17 08:29 96 Room Air 08/15/17 04:00 97.9 86 19 122/68 (86) 96 08/15/17 00:00 96.6 89 18 100/55 (70) 97 08/14/17 20:50 Nasal Cannula 1.00 08/14/17 20:00 96.4 96 19 105/63 (77) 94 08/14/17 18:33 99 08/14/17 16:00 96.1 95 18 117/85 (96) 99 08/14/17 12:00 117 20 105/75 (85) 99 Result Diagram: 08/15/17 0440 08/15/17 0440 Imaging Chest x-ray (08/13/17) small infiltrate at left lower lobe A/P Problem List: (1) Neutropenic fever ICD Codes: D70.9 - Neutropenia, unspecified; R50.81 - Fever presenting with conditions classified elsewhere Status: Acute Plan: Pt with endometrial ca undergoing chemo presents with neutropenic fever questionable small left lung pna gnr uti some distention of small bowel on kub with diarrhea and abdomen cramps now better. lulu with dehydration and hypokalemia general weakness plan for snf cont ivf and kcl replacement cont abx and narrow once cx's return from blood and urine repeat kub gcsf per oncology. improving. family updated yesterday - (2) Pneumonia ICD Codes: J18.9 - Pneumonia, unspecified organism Status: Acute Plan: - see above (3) Hypocalcemia ICD Codes: E83.51 - Hypocalcemia Plan: calcium given (4) COPD (chronic obstructive pulmonary disease) ICD Codes: J44.9 - Chronic obstructive pulmonary disease, unspecified Plan: - symbicort - prn duonebs (5) HTN (hypertension) ICD Codes: I10 - Essential (primary) hypertension Status: Chronic Plan: - continue norvasc & lisinopril (6) GERD (gastroesophageal reflux disease) ICD Codes: K21.9 - Gastro-esophageal reflux disease without esophagitis Status: Chronic Plan: - continue PPI (7) Depression ICD Codes: F32.9 - Major depressive disorder, single episode, unspecified Status: Chronic Plan: - lexapro - prn xanax Problem Qualifiers (1) Pneumonia: Qualified Codes: J18.1 - Lobar pneumonia, unspecified organism (2) HTN (hypertension): Qualified Codes: I10 - Essential (primary) hypertension (3) GERD (gastroesophageal reflux disease): Qualified Codes: K21.9 - Gastro-esophageal reflux disease without esophagitis Raffi Santillan MD Aug 15, 2017 11:14
[2017-08-15] MEDS ORDERED: POTASSIUM CHLORIDE 20 MEQ CONTROLLED RELEASE TAB PO ONE (11:15)
--- NOTE | 2017-08-15 11:53 | MB ---
cc: GINETTE GRAVES DATE OF CONSULTATION: 08/15/2017 HISTORY OF PRESENT ILLNESS This is a 66-year-old female who is known to [facility] for a diagnosis of uterine papillary serous carcinoma. She is currently being treated with line-1, cycle-1 Taxol and carboplatin chemotherapy that she received on August 04, 2017. Since that treatment she states that she has been having weakness, nausea and vomiting. She felt pretty good the first couple of days after chemo but since then she would have a couple bad days and then a good day and then a couple more bad days. Most recently she complained of fever, nausea, vomiting and extreme fatigue. She presented to [facility] for evaluation of these symptoms on August 13, 2017. She was admitted with febrile neutropenia, started on IV antibiotics, cefepime along with vancomycin. Her T-max was 101.[address] Lewis who saw her over the weekend started her on daily Neupogen. She was seen today on , states she is feeling much better. She is still having difficulty with her appetite and she has been evaluated by speech therapy. She states she still feels very fatigued. She denies any more nausea or vomiting. States her pain is controlled but she is having a great deal of neuropathy in her hands and feet. I explained to her that I will discuss with Dr. Palomo the possibility of dose reduction with her next cycle to hopefully decrease the neuropathies, extreme fatigue and nausea and vomiting that she has had, although I do believe that some of the fatigue certainly can be explained by the febrile neutropenia. I also explained to her that she would be getting Neulasta which can be given anywhere from 24-72 hours after her chemo and she is agreeable to get that as well. We will also make sure that she has pain medication on hand for any pain that she may have with the injection of Neulasta. I also had the opportunity to speak with her daughter on the phone today as well. REVIEW OF SYSTEMS She complained of decreased appetite, being diaphoretic, fatigue and fever. She also complained of nausea and vomiting, joint and muscular pain. All other review of systems was negative. PAST MEDICAL HISTORY 1. Hypertension. 2. COPD. 3. Depression. 4. Anxiety. 5. GERD. 6. Osteoarthritis. 7. Colitis. 8. Pancreatitis PAST SURGICAL HISTORY 1. Cataract surgery. 2. section. 3. Tubal ligation. 4. Hysterectomy with BSO. 5. Total knee arthroplasty. 6. Colonoscopy. 7. Tonsillectomy. 8. D&C. 9. Hemorrhoid surgery. 10.Benign breast biopsy. MEDICATIONS Reported medications per EMR. ALLERGIES 1. PENICILLIN. 2. PROPOXYPHENE. FAMILY HISTORY Noncontributory. SOCIAL HISTORY She is . She is a past smoker. She does have a daughter that lives in [place]. Occasional alcohol. Denies any illegal drug use. PHYSICAL EXAMINATION VITAL SIGNS: Temperature 97.9. Her T-max overnight was 97.9. Pulse 86, respiratory rate 19, blood pressure 122/68. She is satting 96% on room air. GENERAL: She is alert and oriented x3 in no acute distress, resting in bed and sits along the bedside during our discussion today. SKIN: She has no rashes. HEAD: Atraumatic, normocephalic. EYES: Pupils are equal, round and reactive. Positive EOMs. NECK: Trachea is midline. HEART: Regular rate and rhythm with no murmur, rub or gallop. LUNGS: Clear to auscultation bilaterally with no wheezing, rales or rhonchi. EXTREMITIES: The extremities are without any clubbing, cyanosis or edema. She has no calf tenderness. NEUROLOGIC: She is awake and alert x3. LABORATORY White blood cell count today is 2.5, hemoglobin 8.4, hematocrit 24.2, platelets 46. ANC is 1500. Sodium 136, potassium 3.1, chloride 109, BUN 32, creatinine 1.24, protein corrected calcium 7.5, total protein 5.7. Urine showed gram-negative rods. Infectious Disease to follow. She was negative for influenza A and B. Blood cultures have no growth x1 day. IMAGING A chest x-ray obtained on 08/15/2017 showed cardiomegaly and subsegmental atelectasis in both bases. ASSESSMENT AND PLAN 1. Neutropenic fever. Neutropenia is improving with increased ANC and delivery of Neupogen. Will start Neulasta with subsequent chemotherapies and discuss with Dr. Palomo decrease in Taxol and carboplatin to hopefully relieve some of the side effects that she has had. We can titrate the dose if she proves toleration. She has underlying pneumonia. She is on IV antibiotics including cefepime and vancomycin. Supportive care with IV fluids. 2. Pneumonia. The patient is currently on IV antibiotics. 3. Uterine papillary serous carcinoma status post line-1, cycle-1 of Taxol and carboplatin chemotherapy. The patient will continue with chemotherapy as scheduled once she is discharged from the hospital consideration of Neulasta and possibly a dose decrease due to the extent of the side effects including extreme fatigue, nausea, vomiting, neuropathies. 4. This consult will be discussed with Dr. Palomo in detail and any further orders will follow. CONSTANCE Talavera/KAELA /10:02 AM /11:28 AM MTDD
[2017-08-15 12:00] VITALS: BP_SYST 126; BP_SYST 132; BP_DIAS 65; BP_DIAS 95; PULSE 77; PULSE 91; RESP 18; TEMP 96; O2SAT 96; O2SAT 97
[2017-08-15] MEDS: POTASSIUM CHLOR 20 MEQ PREMIX 100 ML IV SCH ×2 (12:33→14:57)
[2017-08-15] MEDS: ONDANSETRON HCL 4 MG/2 ML VIAL IVP PRN (13:43)
--- NOTE | 2017-08-15 14:26 | RADRPT ---
EXAM DATE/TIME: 08/15/2017 14:09 [facility] COMPARISON: ABDOMEN KUB ONLY, August 13, 2017, 19:48. INDICATIONS : Abdominal pain. MEDICAL HISTORY : Pancreatitis. Gastroesophageal reflux disease. Colitis. Uterine papillary SURGICAL HISTORY : Hysterectomy. ENCOUNTER: Subsequent ACUITY: 1 week PAIN SCORE: 8/10 LOCATION: abdomen. FINDINGS: Supine view of the abdomen was performed. The abdominal bowel gas pattern is normal. No abnormal ma sses, calcifications, or organomegaly is seen. The osseous structures are unremarkable. CONCLUSION: 1. No evidence of obstruction. Nate Feliciano MD on August 15, 2017 at 14:24 Board Certified Radiologist. This report was verified electronically.
--- NOTE | 2017-08-15 15:21 | MB ---
cc: ERIN HARMON M.D., KELLY L. MD KHAN,SANDRINE ESTEBAN,WENCESLAO SANTILLAN,ERNESTINA Ha M.D. DATE OF CONSULTATION: 08/15/[address] Ernestina Santillan and Dr. Sandrine Lewis. REASON FOR CONSULTATION AND REASON FOR ADMISSION Chemotherapy induced neutropenia. DIAGNOSIS Uterine papillary serous carcinoma. HISTORY OF PRESENT ILLNESS This patient is seen, her findings are reviewed. She is counseled by me and examined by me in conjunction with our nurse practitioner (Rodger Harvey). I agree with her findings, assessment and plan of care. She had her first cycle of line one Taxol, carboplatin chemotherapy for diagnosis of uterine papillary serous carcinoma, taking into consideration the possibility of microscopic metastatic disease and the high risk nature of that tumor. She had undergone a hysterectomy with an incidental finding of malignancy on the hysterectomy specimen with high-risk features. She was counseled regarding the pros, cons, risks, benefits of chemotherapy, agreed with chemotherapy, underwent the first treatment. She underwent treatment on August 04, 2017 but was admitted over the weekend for progressive weakness, joint aches, bone pain and simply failure to thrive. On admission she was found to be at her chemotherapy el with neutropenia. On 08/13/2017, her overall white count was 0.4, on 08/14 it was 0.7 and on 08/15 (this morning) her white count is 2.5 with an absolute neutrophil count of approximately 0.7. Electrolytes are noted for low potassium to be repleted 3.1. Carbon dioxide low at 17.2, creatinine elevated at 1.65 on admission, BUN and creatinine of 32 and 1.24 this morning. Coags, INR 1.4. Urine culture positive for E-coli and Proteus mirabilis. She is admitted to the hospital, started on IV antibiotics, IV fluids, correction of electrolytes, supportive care. She reports that she is feeling better, much better than on admission. She is not quite back to baseline but she is improving. She is starting to feel like getting up out of bed, sitting in a chair. She takes short walks but still holds onto something or has somebody with her to feel steady on her feet. Her bowel and bladder function are essentially normal and her appetite is improving. She was eating a popsicle when we were talking to her. PAST MEDICAL HISTORY/PAST SURGICAL HISTORY/MEDICATIONS/REVIEW OF SYSTEMS (as per history of present illness). FAMILY HISTORY/ALLERGIES AND SO FORTH Are all in the chart as documented. They are all reviewed. I have no additional information to add to these findings. PHYSICAL EXAMINATION VITAL SIGNS: She is currently afebrile compared to her temperature on admission, maximum 101.9 degrees, pulse ranging from 95-117, respirations 18-20, blood pressure 94-117 over 58-85, O2 saturations greater than 99% while awake. Ins and outs, she had 4970 IV and oral fluids +800 out plus voids. Multiple bowel movements. GENERAL: She is alert and oriented x3. She is in good spirits. No acute distress. ABDOMEN: Her abdomen is nontender. No rebound or guarding. PELVIC: Exam deferred given recent office exam, recent surgery. Exam otherwise nonfocal. Time is spent in discussion with her reviewing the findings in her case to date. She has her daughter and I believe her son-in-law via speaker phone joining us for the discussion. I reviewed that the chemotherapy was definitely the cause of her counts going low and that puts her resistance down and puts her at increased risk for infections. There is an infection in the urinary tract, possible there is source of infections elsewhere that may or may not ever be clarified. Nevertheless, broad spectrum antibiotics are improving her status. Chest x-ray is without any acute changes except for atelectasis. In subsequent treatments we recommended dose reducing the Taxol and carboplatin, will probably dose reduce each by 20 or 25%. Will also start Neulasta stem cell support and pros, cons, risks and benefits of that approach were discussed and reviewed. We would like to continue these medications that we believe most likely to be therapeutic and still with dose reduction they would be in therapeutic range but stem cell support will have additional side effects of its own, but if we can avoid profound neutropenia for profound chemotherapy induced el and we will help keep her feeling better clinically and the hope is she can then move forward with ongoing evaluation and complete the six recommended cycles of chemotherapy. Discussion ensued, questions were answered for her and her family members. They inquired as to the recent PET scan results that were not immediately available, in review they were negative in that there was no evidence of metastatic disease and these results were then shared with Josefina Payne again. These had been discussed during our recent clinic encounter. She is reminded that those results were favorable, but she is also reminded that the cannot detect accurately the presence or absence of microscopic metastatic disease and that is another reason and the rationale for the chemotherapy. Her and her family members expressed good understanding. I am pleased that she is feeling better and grateful for all of the excellent care from the hospitalists and others. ASSESSMENT: 1. Uterine papillary serous carcinoma clinically stage I with no overt evidence of disease beyond the uterus. 2. Chemotherapy induced neutropenia, thrombocytopenia with febrile illness post treatment day #11. 3. Admitted to the hospital now on broad-spectrum IV antibiotics, IV fluids, correction of electrolytes, hydration, supportive care. 4. Discussion as summarized above. PLAN 1. Continue present management. 2. With subsequent outpatient treatments will dose reduce Taxol and carboplatin 20-25% each and will initiate Neulasta stem cell support. She is to stay on the regular schedule for outpatient lab followup and will keep her on schedule for her next chemotherapy as long as her physical condition and counts are satisfactory. Thank you, will follow along in her care. MD ASHLEIGH George/MAGALY /1:34 PM /2:43 PM
[2017-08-15 16:00] VITALS: BP 107/62; PULSE 84; RESP 18; TEMP 97.8; O2SAT 100
[2017-08-15 20:00] VITALS: BP 101/59; PULSE 88; RESP 17; TEMP 97; O2SAT 97
[2017-08-15] MEDS: ALPRAZolam 0.25 MG TAB PO PRN (21:07)
[2017-08-16] VITALS (7 sets, daily range): BP systolic 110–149; BP diastolic 66–94; PULSE 83–128; RESP 17–18; TEMP 96.2–98.2; O2SAT 96–99
[2017-08-16] MEDS: ONDANSETRON HCL 4 MG/2 ML VIAL IVP PRN ×2 (00:26→23:39)
[2017-08-16] MEDS: ALPRAZolam 0.25 MG TAB PO PRN ×3 (04:36→21:15)
[2017-08-16] MEDS: RESP: ALBUTEROL 2.5 MG/IPRATROPIUM 0.5 MG NEB (PRN) NEB (05:07)
[2017-08-16 07:57] LABS: AUTOMATED NEUTROPHIL # 4.6 TH/MM3 (1.8-7.7); BASOPHIL % 0.1 % (0.0-2.0); EOSINOPHIL % 0.4 % (0.0-4.0); HEMATOCRIT 23.4 % (35.0-46.0); LYMPH % 16.8 % (9.0-44.0); LYMPHOCYTE # 1.1 TH/MM3 (1.0-4.8); MEAN CELL VOLUME 94.4 FL (80.0-100.0); MEAN CORPUSCULAR HEMOGLOBIN 32.2 PG (27.0-34.0); MEAN CORPUSCULAR HGB CONC 34.1 % (32.0-36.0); MONO % 8.9 % (0.0-8.0); NEUT % 73.8 % (16.0-70.0); PLATELET COUNT 36 TH/MM3 (150-450); RED BLOOD COUNT 2.48 MIL/MM3 (4.00-5.30); WHITE BLOOD COUNT 6.3 TH/MM3 (4.0-11.0)
[2017-08-16] MEDS ORDERED: ALTEPLASE RECOMBINANT 2 MG VIAL INTRACATH ONE (08:00)
[2017-08-16 08:06] LABS: HEMO FLAGS AUTO DIFF
[2017-08-16] MEDS: BUDESONIDE-FORMOTEROL 160/4.5 MCG INHALER INH SCH ×2 (08:24→21:15)
[2017-08-16] MEDS: CEFEPIME INJ 2,000 MG in SODIUM CHLORIDE 0.9% INJ 100 ML IV SCH (08:26)
[2017-08-16 08:27] LABS: BICARBONATE 14.6 MEQ/L (21.0-32.0); POTASSIUM 3.6 MEQ/L (3.5-5.1)
[2017-08-16] MEDS: FILGRASTIM 480 MCG/1.6 ML VIAL SQ SCH (08:27)
[2017-08-16] MEDS: PANTOPRAZOLE SOD 40 MG DELAYED RELEASE TAB PO SCH (08:27)
[2017-08-16] MEDS: SODIUM CHLORIDE 0.9% FLUSH 10 ML FLUSH IV FLUSH SCH ×2 (08:27→21:15)
[2017-08-16] MEDS: NYSTAT/DIPHENHY/LIDO MOUTHWASH (Adult) 120ML SWISH-SWAL SCH ×4 (08:34→21:15)
[2017-08-16 08:59] LABS: CALCIUM-PROTEIN CORRECTED 8.2 MG/DL (8.5-10.1)
[2017-08-16 09:09] LABS: BANDS 20 % (0-6); METAMYELOCYTES 1 % (0-1); NEUTROPHIL # MANUAL DIFF 4.7 TH/MM3 (1.8-7.7); POLYS (SEG NEUTROPHILS) 54 % (16-70); WBC DIFF SAMPLE 100
[2017-08-16 09:10] LABS: DOHLE BODIES PRESENT (NONE SEEN); PLATELET ESTIMATE SMEAR LOW (NORMAL); TOXIC GRANULATION 2+ (NORMAL)
[2017-08-16 09:11] LABS: PLATELET MORPHOLOGY NORMAL (NORMAL); SCAN/DIFF FINAL DIFF MANUAL
--- NOTE | 2017-08-16 10:08 | HHI.PR ---
Subjective Remarks eager for d/c no abdomen pain no sob no dysuria no diarrhea. Objective Vitals heart reg lung cta abd s/nt ext no edema Vital Signs Date Time Temp Pulse Resp B/P (MAP) Pulse Ox O2 Delivery O2 Flow Rate FiO2 08/16/17 08:00 96.6 95 18 145/78 (100) 99 08/16/17 04:19 97 08/16/17 04:00 96.8 85 17 110/66 (81) 96 08/16/17 00:00 97.7 85 17 122/67 (85) 98 08/15/17 21:00 Room Air 08/15/17 20:00 97.0 88 17 101/59 (73) 97 08/15/17 16:00 97.8 84 18 107/62 (77) 100 08/15/17 12:00 96.0 91 18 132/65 (87) 97 08/16/17 08/16/17 08/17/17 15:00 23:00 07:00 Output Total 200 ml Balance -200 ml Output Urine Total 200 ml # Bowel Movements 1 Result Diagram: 08/16/17 0650 08/16/17 0650 Imaging Chest x-ray (08/13/17) small infiltrate at left lower lobe A/P Problem List: (1) Neutropenic fever ICD Codes: D70.9 - Neutropenia, unspecified; R50.81 - Fever presenting with conditions classified elsewhere Status: Acute Plan: Pt with endometrial ca undergoing chemo presents with neutropenic fever questionable small left lung pna uti. ecoli, proteus some distention of small bowel on kub with diarrhea and abdomen cramps now better. repeat kub improved lulu with dehydration and hypokalemia. improved general weakness plan for snf. pt eager for d/c today. d/c ivf po abx wbc improved on neupogen low plt from chemo. no bleeding noted. (2) Pneumonia ICD Codes: J18.9 - Pneumonia, unspecified organism Status: Acute Plan: - see above (3) Hypocalcemia ICD Codes: E83.51 - Hypocalcemia Plan: calcium given (4) COPD (chronic obstructive pulmonary disease) ICD Codes: J44.9 - Chronic obstructive pulmonary disease, unspecified Plan: - symbicort - prn duonebs (5) HTN (hypertension) ICD Codes: I10 - Essential (primary) hypertension Status: Chronic Plan: - continue norvasc & lisinopril (6) GERD (gastroesophageal reflux disease) ICD Codes: K21.9 - Gastro-esophageal reflux disease without esophagitis Status: Chronic Plan: - continue PPI (7) Depression ICD Codes: F32.9 - Major depressive disorder, single episode, unspecified Status: Chronic Plan: - lexapro - prn xanax Problem Qualifiers (1) Pneumonia: Qualified Codes: J18.1 - Lobar pneumonia, unspecified organism (2) HTN (hypertension): Qualified Codes: I10 - Essential (primary) hypertension (3) GERD (gastroesophageal reflux disease): Qualified Codes: K21.9 - Gastro-esophageal reflux disease without esophagitis Raffi Santillan MD Aug 16, 2017 10:08
[2017-08-16] MEDS ORDERED: LEVA500T20 PO (10:10)
[2017-08-16] MEDS ORDERED: ALPR0.25 PO (10:10)
--- NOTE | 2017-08-16 10:14 | HHI.DCPOC ---
Discharge Care Plan Diagnosis: (1) Dehydration (2) JEREMIE (acute kidney injury) (3) UTI (urinary tract infection) (4) Neutropenic fever (5) Pneumonia (6) Pancytopenia due to antineoplastic chemotherapy (7) Endometrial cancer (8) Acute hypokalemia Goals to Promote Your Health * To prevent worsening of your condition and complications * To maintain your health at the optimal level Directions to Meet Your Goals Take your medications as prescribed Follow your dietary instruction Follow activity as directed Keep your appointments as scheduled Take your immunizations and boosters as scheduled If your symptoms worsen call your PCP, if no PCP go to Urgent Care Center or Emergency Room Smoking is Dangerous to Your Health. Avoid second hand smoke Call the 24-hour hour crisis hotline for domestic abuse at Raffi Santillan MD Aug 16, 2017 10:14
[2017-08-16] MEDS ORDERED: POTASSIUM CHLORIDE 20 MEQ CONTROLLED RELEASE TAB PO ONE (11:00)
[2017-08-16] MEDS ORDERED: VANCOMYCIN INJ 1,500 MG in SODIUM CHLORID 0.9% 500 ML INJ 500 ML IV SCH (12:00)
[2017-08-16] MEDS ORDERED: LEVOFLOXACIN 500 MG TAB PO ONE (16:30)
[2017-08-17] VITALS: BP 148/82; PULSE 93; RESP 17; TEMP 97; O2SAT 99
[2017-08-17 04:00] VITALS: BP 151/81; PULSE 91; RESP 17; TEMP 96.5; O2SAT 97
--- NOTE | 2017-08-17 07:57 | HHI.PR ---
Subjective Remarks no new issue Objective Vitals heart reg lung cta abd s/nt ext no edema Vital Signs Date Time Temp Pulse Resp B/P (MAP) Pulse Ox O2 Delivery O2 Flow Rate FiO2 08/17/17 04:00 96.5 91 17 151/81 (104) 97 08/17/17 00:00 97.0 93 17 148/82 (104) 99 08/16/17 21:13 97 Room Air 08/16/17 20:00 96.2 83 17 131/82 (98) 97 08/16/17 16:00 97.0 128 18 149/94 (112) 97 08/16/17 12:00 98.2 88 18 124/67 (86) 99 08/16/17 10:15 Room Air 08/16/17 08:00 96.6 95 18 145/78 (100) 99 Result Diagram: 08/16/17 0650 08/16/17 0650 Imaging Chest x-ray (08/13/17) small infiltrate at left lower lobe A/P Problem List: (1) Neutropenic fever ICD Codes: D70.9 - Neutropenia, unspecified; R50.81 - Fever presenting with conditions classified elsewhere Status: Acute Plan: Pt with endometrial ca undergoing chemo presents with neutropenic fever questionable small left lung pna uti. ecoli, proteus some distention of small bowel on kub with diarrhea and abdomen cramps now better. repeat kub improved lulu with dehydration and hypokalemia. improved general weakness d/c orders written for snf yesterday d/c held due to low plts from chemo discussed with oncology...they want to hold her until the plt trends back up. (2) Pneumonia ICD Codes: J18.9 - Pneumonia, unspecified organism Status: Acute Plan: - see above (3) Hypocalcemia ICD Codes: E83.51 - Hypocalcemia Plan: calcium given (4) COPD (chronic obstructive pulmonary disease) ICD Codes: J44.9 - Chronic obstructive pulmonary disease, unspecified Plan: - symbicort - prn duonebs (5) HTN (hypertension) ICD Codes: I10 - Essential (primary) hypertension Status: Chronic Plan: - continue norvasc & lisinopril (6) GERD (gastroesophageal reflux disease) ICD Codes: K21.9 - Gastro-esophageal reflux disease without esophagitis Status: Chronic Plan: - continue PPI (7) Depression ICD Codes: F32.9 - Major depressive disorder, single episode, unspecified Status: Chronic Plan: - lexapro - prn xanax Problem Qualifiers (1) Pneumonia: Qualified Codes: J18.1 - Lobar pneumonia, unspecified organism (2) HTN (hypertension): Qualified Codes: I10 - Essential (primary) hypertension (3) GERD (gastroesophageal reflux disease): Qualified Codes: K21.9 - Gastro-esophageal reflux disease without esophagitis Raffi Santillan MD Aug 17, 2017 07:57
[2017-08-17 08:00] VITALS: BP 156/95; PULSE 86; RESP 14; TEMP 97.1; O2SAT 98
--- NOTE | 2017-08-17 08:53 | PD.ONC.PN ---
Subjective Subjective Remarks Patient was in bathroom and stated that she was doing fine attempted to see pt a second time and she was down in IR to have her infuse-port assessed. awaiting results of platelets to see if able to transition to rehab today Objective Data Date Time Temp Pulse Resp B/P (MAP) Pulse Ox O2 Delivery O2 Flow Rate FiO2 08/17/17 04:00 96.5 91 17 151/81 (104) 97 08/17/17 00:00 97.0 93 17 148/82 (104) 99 08/16/17 21:13 97 Room Air 08/16/17 20:00 96.2 83 17 131/82 (98) 97 08/16/17 16:00 97.0 128 18 149/94 (112) 97 08/16/17 12:00 98.2 88 18 124/67 (86) 99 08/16/17 10:15 Room Air 08/17/17 08/17/17 08/17/17 07:00 15:00 23:00 Intake Total 900 ml Balance 900 ml Result Diagram: 08/16/17 0650 08/16/17 0650 Administered Medications Medications (Trade) Dose Ordered Sig/Radha Route PRN Reason Start Time Stop Time Status Last Admin Dose Admin Sodium Chloride (NS Flush) 2 ml UNSCH PRN IV FLUSH FLUSH AFTER USING IV ACCESS 08/13/17 17:45 08/15/17 04:49 Sodium Chloride (NS Flush) 2 ml BID IV FLUSH 08/13/17 21:00 08/16/17 21:15 Ondansetron HCl (Zofran Inj) 4 mg Q6H PRN IVP NAUSEA OR VOMITING 08/13/17 17:45 08/16/17 23:39 Magnesium Hydroxide (Milk Of Magnesia Liq) 30 ml Q12H PRN PO MILD - MODERATE CONSTIPATION 08/13/17 17:45 08/16/17 21:24 Budesonide/ Formoterol Fumarate (Symbicort 160-4.5 Inh) 2 puff Q12HR INH 08/13/17 21:00 08/16/17 21:15 Albuterol/ Ipratropium (Duoneb Neb) 1 ampule Q6HR NEB PRN NEB SOB/WHEEZING 08/13/17 18:15 08/16/17 05:07 Filgrastim (Neupogen Inj) 480 mcg DAILY SQ 08/13/17 19:00 08/16/17 08:27 Hydromorphone HCl (Dilaudid Pf Inj) 0.5 mg Q6H PRN IV PUSH pain 6-10 08/13/17 19:30 08/13/17 22:52 Pantoprazole Sodium (Protonix) 40 mg DAILY PO 08/14/17 09:00 08/16/17 08:27 Multi-Ingredient Mouthwash/Gargle (Magic Mouthwash Adult Liq) 5 ml QID SWISH-SWAL 08/14/17 10:00 08/16/17 21:15 Alprazolam (Xanax) 0.25 mg Q6H PRN PO anxiety 08/14/17 11:15 08/16/17 21:15 Oxycodone HCl (Roxicodone) 5 mg Q6H PRN PO pain 1-5 08/14/17 11:15 08/14/17 17:19 Objective Remarks GENERAL: Well-nourished, well-developed patient. PSYCHIATRIC: Appropriate mood and affect; insight and judgment normal. Assessment/Plan Problem List: (1) Endometrial cancer ICD Codes: C54.1 - Malignant neoplasm of endometrium Plan: h/o stage I uterine papillary serous carcinoma --s/p hysterectomy and bilateral salpingo-oophorectomy. --s/p cycle 1 Taxol and Carboplatin (2) Neutropenic fever ICD Codes: D70.9 - Neutropenia, unspecified; R50.81 - Fever presenting with conditions classified elsewhere Status: Acute Plan: pt on Neupogen will receive Neulasta with her subsequent treatments Dr. Palomo considering a dose reduction with her next cycle (3) Pancytopenia due to antineoplastic chemotherapy ICD Codes: D61.810 - Antineoplastic chemotherapy induced pancytopenia; T45.1X5A - Adverse effect of antineoplastic and immunosuppressive drugs, initial encounter Status: Acute Plan: --Threshold for packed red blood cell transfusion is hemoglobin of 7.5 or less. --Threshold for transfusing platelets is less than 10,000.....continue to monitor platelets if stable then patient to be discharged to rehab today --on Neupogen Assessment 66y/o female with endometrial carcinoma currently receiving carboplatin and Taxol admitted with neutropenic fever. h/o Stage I uterine papillary serous carcinoma status post hysterectomy and bilateral salpingo-oophorectomy. Chronic obstructive pulmonary disease History of colitis, Hemorrhoids, Hypertension, Pancreatitis. Rodger Harvey Aug 17, 2017 08:52
[2017-08-17] MEDS ORDERED: IOHEXOL 350 MG/ML 50 ML BTL (for RAD DIAG) OTHER ONE (08:58)
[2017-08-17] MEDS: SODIUM CHLORIDE 0.9% FLUSH 10 ML FLUSH IV FLUSH SCH ×2 (09:00→21:38)
--- NOTE | 2017-08-17 09:09 | PD.RAD ---
Post Procedure Progress Note Pre Procedure Diagnosis: (1) Port-a-cath in place (2) Infusaport Malfunction Post Procedure Diagnosis: (1) Port-a-cath in place (2) Infusaport Malfunction Procedure Date: Aug 17, 2017 Supervising Radiologist: Raman Lira Proceduralist/Assist: Monika Alfred, RT(R), Dianne Goldsmith, RT(R) Plan of Activity Patient to Unit: [facility] Patient Condition: Good See PACS Report for procedural detail/treatment Central Venous Access Device Procedure 1 Right Internal Jugular Infusaport Evaluation single lumen Ivorian: 8 Findings: Port in excellent position. Flushes without difficulty. No fibrin sheath but unable to aspirate (? etiology). Will lock with 2mg of TPA and let dwell for a few hours to try and improve function Raman Lira MD Aug 17, 2017 09:09
--- NOTE | 2017-08-17 10:11 | RADRPT ---
EXAM DATE/TIME: 08/17/2017 08:36 [facility] COMPARISON: No previous studies available for comparison. INDICATIONS : Patient with history of uterine carcinoma in need of Cirmh-w-Dhqf evaluation. MEDICAL HISTORY : COPD, HTN, Pancreatitis, Colitis, GERD, Uterine papillary serous carcinoma, Chemotherapy, HLD SURGICAL HISTORY : Bilateral salpingo-oophorectomy, Hysterectomy, Port placement, Colonoscopy, Benign breast biopsy ENCOUNTER: Initial ACUITY: 3 days PAIN SCORE: 0/10 FLUORO TIME: 0.5 minutes IMAGE SERIES: 2 CONTRAST: 10 cc Omnipaque (iohexol) 350 PROCEDURE : 1. Access of Fyydqf-w-xspd. 2. Port patency injection. The risks, benefits and alternatives to the procedure were explained and verbal and written consent w as obtained. The patient was placed supine. The port was prepped in sterile fashion. Full sterile t echnique was used, including cap, mask, sterile gloves and gown, and a large sterile sheet. Hand hyg iene and 2% chlorhexidine prep was utilized per protocol for cutaneous antisepsis with appropriate dr y time for site. The previously placed port was accessed and positive contrast was injected for evaluation. Injection demonstrates catheter to be in good position and intact without leakage. No significant fibrin sheat h however, I was unable to aspirate. CONCLUSION: 1. Catheter appears to be appropriately positioned and intact. 2. No obvious fibrin sheath although I was unable to aspirate from the catheter. Will lock device wit h 2 mg of TPA in an attempt to improve function. Raman Lira MD on August 17, 2017 at 10:05 Board Certified Radiologist. This report was verified electronically.
[2017-08-17] MEDS: PANTOPRAZOLE SOD 40 MG DELAYED RELEASE TAB PO SCH (10:36)
[2017-08-17] MEDS: BUDESONIDE-FORMOTEROL 160/4.5 MCG INHALER INH SCH ×2 (10:36→21:36)
[2017-08-17] MEDS: NYSTAT/DIPHENHY/LIDO MOUTHWASH (Adult) 120ML SWISH-SWAL SCH ×4 (10:39→21:36)
[2017-08-17] MEDS ORDERED: PHARMACY ORDERED LAB ONE (11:45)
[2017-08-17 12:00] VITALS: BP 145/97; PULSE 87; RESP 20; TEMP 98.5; O2SAT 98
[2017-08-17 12:39] LABS: AUTOMATED NEUTROPHIL # 8.4 TH/MM3 (1.8-7.7); BASOPHIL % 0.1 % (0.0-2.0); EOSINOPHIL % 0.3 % (0.0-4.0); HEMATOCRIT 25.8 % (35.0-46.0); LYMPH % 12.9 % (9.0-44.0); LYMPHOCYTE # 1.4 TH/MM3 (1.0-4.8); MEAN CELL VOLUME 94.6 FL (80.0-100.0); MEAN CORPUSCULAR HEMOGLOBIN 32.8 PG (27.0-34.0); MEAN CORPUSCULAR HGB CONC 34.6 % (32.0-36.0); NEUT % 79.7 % (16.0-70.0); PLATELET COUNT 32 TH/MM3 (150-450); RED BLOOD COUNT 2.73 MIL/MM3 (4.00-5.30); WHITE BLOOD COUNT 10.6 TH/MM3 (4.0-11.0)
[2017-08-17 12:44] LABS: HEMO FLAGS AUTO DIFF
[2017-08-17 13:35] LABS: BANDS 35 % (0-6); EOSINOPHILS 1 % (0-4); NEUTROPHIL # MANUAL DIFF 9.3 TH/MM3 (1.8-7.7); PLATELET ESTIMATE SMEAR LOW (NORMAL); PLATELET MORPHOLOGY NORMAL (NORMAL); POLYS (SEG NEUTROPHILS) 53 % (16-70); TOXIC GRANULATION 2+ (NORMAL); WBC DIFF SAMPLE 100
[2017-08-17 13:36] LABS: DOHLE BODIES PRESENT (NONE SEEN); SCAN/DIFF FINAL DIFF MANUAL
[2017-08-17 16:00] VITALS: BP 141/95; PULSE 88; RESP 18; TEMP 98.3; O2SAT 99
[2017-08-17] MEDS ORDERED: LEVOFLOXACIN 500 MG TAB PO ONE (16:00)
[2017-08-17 20:00] VITALS: BP 132/95; PULSE 93; RESP 18; TEMP 96.7; O2SAT 100
[2017-08-18] VITALS (7 sets, daily range): BP systolic 122–162; BP diastolic 76–98; PULSE 76–98; RESP 16–18; TEMP 96.1–98.9; O2SAT 97–100
[2017-08-18 04:44] LABS: AUTOMATED NEUTROPHIL # 5.6 TH/MM3 (1.8-7.7); BASOPHIL % 0.2 % (0.0-2.0); EOSINOPHIL % 0.5 % (0.0-4.0); LYMPH % 20.8 % (9.0-44.0); LYMPHOCYTE # 1.7 TH/MM3 (1.0-4.8); MEAN CELL VOLUME 94.5 FL (80.0-100.0); MEAN CORPUSCULAR HEMOGLOBIN 32.2 PG (27.0-34.0); MEAN CORPUSCULAR HGB CONC 34.1 % (32.0-36.0); MONO % 8.1 % (0.0-8.0); NEUT % 70.4 % (16.0-70.0); PLATELET COUNT 27 TH/MM3 (150-450); RED BLOOD COUNT 2.43 MIL/MM3 (4.00-5.30); RED CELL DISTRIBUTION WIDTH 13.8 % (11.6-17.2); WHITE BLOOD COUNT 7.9 TH/MM3 (4.0-11.0)
[2017-08-18 05:15] LABS: HEMO FLAGS AUTO DIFF
[2017-08-18] MEDS ORDERED: ACETAMINOPHEN 325 MG TAB PO PRN (07:45)
[2017-08-18] MEDS ORDERED: diphenhydrAMINE HCL 25 MG CAP PO PRN (07:45)
[2017-08-18] MEDS ORDERED: SODIUM CHLOR 0.9% 250 ML INJ 250 ML IV ONE (07:45)
[2017-08-18] MEDS ORDERED: FUROSEMIDE 20 MG/2 ML VIAL IV PUSH ONE (08:00)
--- NOTE | 2017-08-18 08:00 | PD.ONC.PN ---
Subjective Subjective Remarks Patient is sleeping in bed awakens to voice. states she has no complaints. patient denies any pain informed pt and her daughter (via telephone) that her h/h dropped some to 7.8/23 and plts dropped again to 27,000. will continue to watch another day in hopes that labs will improve tomorrow. patient is ready for rehab. will keep chemotherapy schedule as planned. Dr. Palomo talked with her about decreasing dose and giving her neulasta with future chemo. Objective Data Date Time Temp Pulse Resp B/P (MAP) Pulse Ox O2 Delivery O2 Flow Rate FiO2 08/18/17 00:00 96.1 89 17 152/76 (101) 100 08/17/17 21:13 100 Room Air 08/17/17 20:00 96.7 93 18 100 08/17/17 20:00 132/95 (107) 08/17/17 16:00 98.3 88 18 141/95 (110) 99 08/17/17 12:00 98.5 87 20 145/97 (113) 98 08/17/17 08:00 97.1 86 14 156/95 (115) 98 Result Diagram: 08/18/17 0420 08/16/17 0650 Laboratory Results Laboratory Tests Test 08/17/17 12:15 08/18/17 04:20 White Blood Count 10.6 TH/MM3 7.9 TH/MM3 Red Blood Count 2.73 MIL/MM3 2.43 MIL/MM3 Hemoglobin 9.0 GM/DL 7.8 GM/DL Hematocrit 25.8 % 23.0 % Mean Corpuscular Volume 94.6 FL 94.5 FL Mean Corpuscular Hemoglobin 32.8 PG 32.2 PG Mean Corpuscular Hemoglobin Concent 34.6 % 34.1 % Red Cell Distribution Width 14.0 % 13.8 % Platelet Count 32 TH/MM3 27 TH/MM3 Mean Platelet Volume 9.5 FL 8.7 FL Neutrophils (%) (Auto) 79.7 % 70.4 % Lymphocytes (%) (Auto) 12.9 % 20.8 % Monocytes (%) (Auto) 7.0 % 8.1 % Eosinophils (%) (Auto) 0.3 % 0.5 % Basophils (%) (Auto) 0.1 % 0.2 % Neutrophils # (Auto) 8.4 TH/MM3 5.6 TH/MM3 Lymphocytes # (Auto) 1.4 TH/MM3 1.7 TH/MM3 Monocytes # (Auto) 0.7 TH/MM3 0.6 TH/MM3 Eosinophils # (Auto) 0.0 TH/MM3 0.0 TH/MM3 Basophils # (Auto) 0.0 TH/MM3 0.0 TH/MM3 CBC Comment AUTO DIFF AUTO DIFF Differential Total Cells Counted 100 Neutrophils % (Manual) 53 % Band Neutrophils % 35 % Lymphocytes % 9 % Monocytes % 2 % Eosinophils % 1 % Neutrophils # (Manual) 9.3 TH/MM3 Differential Comment FINAL DIFF MANUAL Toxic Granulation 2+ Dohle Bodies PRESENT Platelet Estimate LOW Platelet Morphology Comment NORMAL Imaging Studies Last 24 hours Impressions Venous Access Device Injection 08/17/17 1626 Signed Impressions: Service Date/Time: Thursday, August 17, 2017 08:36 - CONCLUSION: 1. Catheter appears to be appropriately positioned and intact. 2. No obvious fibrin sheath although I was unable to aspirate from the catheter. Will lock device with 2 mg of TPA in an attempt to improve function. Raman Lira MD Administered Medications Medications (Trade) Dose Ordered Sig/Radha Route PRN Reason Start Time Stop Time Status Last Admin Dose Admin Sodium Chloride (NS Flush) 2 ml UNSCH PRN IV FLUSH FLUSH AFTER USING IV ACCESS 08/13/17 17:45 08/15/17 04:49 Sodium Chloride (NS Flush) 2 ml BID IV FLUSH 08/13/17 21:00 08/17/17 21:38 Ondansetron HCl (Zofran Inj) 4 mg Q6H PRN IVP NAUSEA OR VOMITING 08/13/17 17:45 08/16/17 23:39 Magnesium Hydroxide (Milk Of Magnesia Liq) 30 ml Q12H PRN PO MILD - MODERATE CONSTIPATION 08/13/17 17:45 08/16/17 21:24 Budesonide/ Formoterol Fumarate (Symbicort 160-4.5 Inh) 2 puff Q12HR INH 08/13/17 21:00 08/17/17 21:36 Albuterol/ Ipratropium (Duoneb Neb) 1 ampule Q6HR NEB PRN NEB SOB/WHEEZING 08/13/17 18:15 08/16/17 05:07 Hydromorphone HCl (Dilaudid Pf Inj) 0.5 mg Q6H PRN IV PUSH pain 6-10 08/13/17 19:30 08/13/17 22:52 Pantoprazole Sodium (Protonix) 40 mg DAILY PO 08/14/17 09:00 08/17/17 10:36 Multi-Ingredient Mouthwash/Gargle (Magic Mouthwash Adult Liq) 5 ml QID SWISH-SWAL 08/14/17 10:00 08/17/17 21:36 Alprazolam (Xanax) 0.25 mg Q6H PRN PO anxiety 08/14/17 11:15 08/16/17 21:15 Oxycodone HCl (Roxicodone) 5 mg Q6H PRN PO pain 1-5 08/14/17 11:15 08/18/17 02:22 Objective Remarks GENERAL: Well-nourished, well-developed patient. SKIN: Warm and dry. HEAD: Normocephalic. EYES: No scleral icterus. No injection or drainage. CARDIOVASCULAR: Regular rate and rhythm without murmurs. RESPIRATORY: Breath sounds equal bilaterally. No accessory muscle use. GASTROINTESTINAL: Abdomen soft, non-tender, nondistended. EXTREMITIES: No cyanosis, or edema. MUSCULOSKELETAL: Adequate muscle tone. NEUROLOGICAL: No obvious focal deficit. Awake, alert, and oriented x3. PSYCHIATRIC: Appropriate mood and affect; insight and judgment normal. Assessment/Plan Problem List: (1) Endometrial cancer ICD Codes: C54.1 - Malignant neoplasm of endometrium Plan: h/o stage I uterine papillary serous carcinoma --s/p hysterectomy and bilateral salpingo-oophorectomy. --s/p cycle 1 Taxol and Carboplatin (2) Neutropenic fever ICD Codes: D70.9 - Neutropenia, unspecified; R50.81 - Fever presenting with conditions classified elsewhere Status: Acute Plan: has received Neupogen X 5 days will get Neulasta with future treatments fevers resolved ANC in normal range (3) Pancytopenia due to antineoplastic chemotherapy ICD Codes: D61.810 - Antineoplastic chemotherapy induced pancytopenia; T45.1X5A - Adverse effect of antineoplastic and immunosuppressive drugs, initial encounter Status: Acute Plan: transfuse 2 units PRBCs for H/H 7 continue to monitor plts cbc with diff in AM spoke with med team and Dr. Palomo Assessment 66y/o female with endometrial carcinoma currently receiving carboplatin and Taxol admitted with neutropenic fever. h/o Stage I uterine papillary serous carcinoma status post hysterectomy and bilateral salpingo-oophorectomy. Chronic obstructive pulmonary disease History of colitis, Hemorrhoids, Hypertension, Pancreatitis. Attending Statement discussed with Dr. Palomo and he is in agreement. Rodger Harvey Aug 18, 2017 08:00
[2017-08-18] MEDS: PANTOPRAZOLE SOD 40 MG DELAYED RELEASE TAB PO SCH (08:22)
[2017-08-18] MEDS: BUDESONIDE-FORMOTEROL 160/4.5 MCG INHALER INH SCH ×2 (08:22→21:00)
[2017-08-18] MEDS: NYSTAT/DIPHENHY/LIDO MOUTHWASH (Adult) 120ML SWISH-SWAL SCH ×4 (08:24→21:00)
[2017-08-18 08:31] LABS: BANDS 17 % (0-6); DOHLE BODIES PRESENT (NONE SEEN); NEUTROPHIL # MANUAL DIFF 5.2 TH/MM3 (1.8-7.7); PLATELET ESTIMATE SMEAR LOW (NORMAL); PLATELET MORPHOLOGY NORMAL (NORMAL); POLYS (SEG NEUTROPHILS) 49 % (16-70); SCAN/DIFF FINAL DIFF MANUAL; WBC DIFF SAMPLE 100
[2017-08-18] MEDS: ALPRAZolam 0.25 MG TAB PO PRN (08:32)
[2017-08-18] MEDS: SODIUM CHLORIDE 0.9% FLUSH 10 ML FLUSH IV FLUSH SCH ×2 (08:34→21:54)
--- NOTE | 2017-08-18 09:22 | HHI.PR ---
Subjective Remarks pt doing well . eager for d/c Objective Vitals heart reg lung cta abd s/nt ext no edema Vital Signs Date Time Temp Pulse Resp B/P (MAP) Pulse Ox O2 Delivery O2 Flow Rate FiO2 08/18/17 08:00 98.6 90 18 162/98 (119) 99 08/18/17 00:00 96.1 89 17 152/76 (101) 100 08/17/17 21:13 100 Room Air 08/17/17 20:00 96.7 93 18 100 08/17/17 20:00 132/95 (107) 08/17/17 16:00 98.3 88 18 141/95 (110) 99 08/17/17 12:00 98.5 87 20 145/97 (113) 98 Result Diagram: 08/18/17 0420 08/16/17 0650 Imaging Chest x-ray (08/13/17) small infiltrate at left lower lobe A/P Problem List: (1) Neutropenic fever ICD Codes: D70.9 - Neutropenia, unspecified; R50.81 - Fever presenting with conditions classified elsewhere Status: Acute Plan: Pt with endometrial ca undergoing chemo presents with neutropenic fever questionable small left lung pna uti. ecoli, proteus some distention of small bowel on kub with diarrhea and abdomen cramps now better. repeat kub improved lulu with dehydration and hypokalemia. improved general weakness pancytopenia related to chemo d/c orders written for snf d/c held due to low plts from chemo discussed with oncology...they want to hold her until the plt trends back up. 2 units blood ordered per oncology. (2) Pneumonia ICD Codes: J18.9 - Pneumonia, unspecified organism Status: Acute Plan: - see above (3) Hypocalcemia ICD Codes: E83.51 - Hypocalcemia Plan: calcium given (4) COPD (chronic obstructive pulmonary disease) ICD Codes: J44.9 - Chronic obstructive pulmonary disease, unspecified Plan: - symbicort - prn duonebs (5) HTN (hypertension) ICD Codes: I10 - Essential (primary) hypertension Status: Chronic Plan: - continue norvasc & lisinopril (6) GERD (gastroesophageal reflux disease) ICD Codes: K21.9 - Gastro-esophageal reflux disease without esophagitis Status: Chronic Plan: - continue PPI (7) Depression ICD Codes: F32.9 - Major depressive disorder, single episode, unspecified Status: Chronic Plan: - lexapro - prn xanax Problem Qualifiers (1) Pneumonia: Qualified Codes: J18.1 - Lobar pneumonia, unspecified organism (2) HTN (hypertension): Qualified Codes: I10 - Essential (primary) hypertension (3) GERD (gastroesophageal reflux disease): Qualified Codes: K21.9 - Gastro-esophageal reflux disease without esophagitis Raffi Santillan MD Aug 18, 2017 09:22
[2017-08-18] MEDS ORDERED: LEVOFLOXACIN 500 MG TAB PO ONE (16:00)
[2017-08-18] MEDS ORDERED: FUROSEMIDE 40 MG/4 ML VIAL ONE (16:18)
[2017-08-18] MEDS: ONDANSETRON HCL 4 MG/2 ML VIAL IVP PRN (17:36)
[2017-08-19] VITALS: BP 120/75; PULSE 87; RESP 17; TEMP 96.5; O2SAT 98
[2017-08-19 04:00] VITALS: BP 125/72; PULSE 71; RESP 17; TEMP 96.8; O2SAT 98
[2017-08-19 06:44] LABS: AUTOMATED NEUTROPHIL # 3.3 TH/MM3 (1.8-7.7); BASOPHIL % 0.4 % (0.0-2.0); EOSINOPHIL % 0.5 % (0.0-4.0); HEMATOCRIT 30.4 % (35.0-46.0); LYMPH % 32.5 % (9.0-44.0); LYMPHOCYTE # 1.9 TH/MM3 (1.0-4.8); MEAN CELL VOLUME 87.5 FL (80.0-100.0); MEAN CORPUSCULAR HEMOGLOBIN 30.1 PG (27.0-34.0); MEAN CORPUSCULAR HGB CONC 34.4 % (32.0-36.0); MONO % 9.7 % (0.0-8.0); NEUT % 56.9 % (16.0-70.0); PLATELET COUNT 36 TH/MM3 (150-450); RED BLOOD COUNT 3.47 MIL/MM3 (4.00-5.30); RED CELL DISTRIBUTION WIDTH 19.9 % (11.6-17.2); WHITE BLOOD COUNT 5.8 TH/MM3 (4.0-11.0)
[2017-08-19 06:47] LABS: HEMO FLAGS AUTO DIFF
--- NOTE | 2017-08-19 07:16 | MB ---
cc: SANDRINE ALVAREZ,HUMZA SANCHEZ M.D., MD, JASON M.D. BRAITHWAITE, RICHARD L. M.D. DATE OF CONSULTATION 08/19/2017 REASON FOR CONSULTATION Ms. Payne is seen again on rounds updating her findings. She has had a significant el from her chemotherapy first cycle. As per previous discussion, subsequent cycles we will need to reduce the dose and initiate stem cell support with Neulasta. She was anemic. She is status post transfusion yesterday without problems. Hemoglobin went from 7.8-10.4. White count has normalized. She has no longer neutropenic with a white count 5.88 and it appears as though her platelets have plateaued and started to increase. They were 32,000 on 08/17, they were 27,000 on 08/18 and this morning, they were 36,000 suggesting that she is at the end of her platelet el and we would expect the platelet count to start returning towards normal. Clinically, she is feeling well. No change on exam. Discussion ensued, questions were answered. I believe she could be discharged from the hospital. She is still favoring a short-term rehab recovery and I think now with findings, I think that would be reasonable when acceptable by Dr. Santillan and his team. We are grateful for his excellent care. Questions were asked and answered. She expressed good understanding. She knows to contact our office to schedule follow up with ongoing weekly blood draws as per protocol and to contact our office should she have any questions. She expresses a good understanding and is grateful for care provided. MD ASHLEIGH George/VICKI /6:55 AM /7:03 AM
[2017-08-19 08:48] LABS: SCAN/DIFF AUTO DIFF CONFIRMED
[2017-08-19 08:55] VITALS: BP 130/70; PULSE 79; RESP 16; TEMP 96.8; O2SAT 99
[2017-08-19] MEDS: NYSTAT/DIPHENHY/LIDO MOUTHWASH (Adult) 120ML SWISH-SWAL SCH ×2 (09:00→11:42)
--- NOTE | 2017-08-19 09:15 | HHI.PR ---
Subjective Remarks ambulating no fever Objective Vitals heart reg lung cta abds/nt ext no edema Vital Signs Date Time Temp Pulse Resp B/P (MAP) Pulse Ox O2 Delivery O2 Flow Rate FiO2 08/19/17 08:55 96.8 79 16 99 130/70 (90) 08/19/17 04:00 96.8 71 17 125/72 (89) 98 08/19/17 00:00 96.5 87 17 120/75 (90) 98 08/18/17 21:00 99 Room Air 21 08/18/17 20:00 96.6 83 17 145/82 (103) 99 08/18/17 19:07 98.6 87 16 145/81 98 08/18/17 16:25 98.9 85 16 135/79 99 08/18/17 14:11 98.1 98 16 124/78 98 08/18/17 13:56 98.0 76 16 122/78 97 Result Diagram: 08/19/17 0603 08/16/17 0650 Imaging Chest x-ray (08/13/17) small infiltrate at left lower lobe A/P Problem List: (1) Neutropenic fever ICD Codes: D70.9 - Neutropenia, unspecified; R50.81 - Fever presenting with conditions classified elsewhere Status: Acute Plan: Pt with endometrial ca undergoing chemo presents with neutropenic fever questionable small left lung pna uti. ecoli, proteus some distention of small bowel on kub with diarrhea and abdomen cramps now better. repeat kub improved lulu with dehydration and hypokalemia. improved general weakness pancytopenia related to chemo d/c orders written for snf s/p 2 units blood 08/18 plt trending up discussed with dr Palomo...ok to d/c to snf. (2) Pneumonia ICD Codes: J18.9 - Pneumonia, unspecified organism Status: Acute Plan: - see above (3) Hypocalcemia ICD Codes: E83.51 - Hypocalcemia Plan: calcium given (4) COPD (chronic obstructive pulmonary disease) ICD Codes: J44.9 - Chronic obstructive pulmonary disease, unspecified Plan: - symbicort - prn duonebs (5) HTN (hypertension) ICD Codes: I10 - Essential (primary) hypertension Status: Chronic Plan: - continue norvasc & lisinopril (6) GERD (gastroesophageal reflux disease) ICD Codes: K21.9 - Gastro-esophageal reflux disease without esophagitis Status: Chronic Plan: - continue PPI (7) Depression ICD Codes: F32.9 - Major depressive disorder, single episode, unspecified Status: Chronic Plan: - lexapro - prn xanax Problem Qualifiers (1) Pneumonia: Qualified Codes: J18.1 - Lobar pneumonia, unspecified organism (2) HTN (hypertension): Qualified Codes: I10 - Essential (primary) hypertension (3) GERD (gastroesophageal reflux disease): Qualified Codes: K21.9 - Gastro-esophageal reflux disease without esophagitis Raffi Santillan MD Aug 19, 2017 09:15
[2017-08-19] MEDS: SODIUM CHLORIDE 0.9% FLUSH 10 ML FLUSH IV FLUSH SCH (09:38)
[2017-08-19] MEDS: PANTOPRAZOLE SOD 40 MG DELAYED RELEASE TAB PO SCH (09:38)
[2017-08-19] MEDS: BUDESONIDE-FORMOTEROL 160/4.5 MCG INHALER INH SCH (09:38)
[2017-08-19] MEDS: ALPRAZolam 0.25 MG TAB PO PRN ×2 (09:49→15:08)
[2017-08-19 12:00] VITALS: BP 135/65; PULSE 91; RESP 16; TEMP 98.8; O2SAT 98
--- NOTE | 2017-08-21 15:02 | HHI.DS ---
Discharge Summary Admission Date Aug 13, 2017 at 17:44 Discharge Date: Aug 19, 2017 Admitting Diagnosis neutropenic fever, sepsis, pneumonia (1) Neutropenic fever Diagnosis: Principal ICD Codes: D70.9 - Neutropenia, unspecified; R50.81 - Fever presenting with conditions classified elsewhere Status: Acute (2) Pneumonia Diagnosis: Principal ICD Codes: J18.9 - Pneumonia, unspecified organism Status: Acute (3) Hypocalcemia Diagnosis: Principal ICD Codes: E83.51 - Hypocalcemia (4) UTI (urinary tract infection) Diagnosis: Principal ICD Codes: N39.0 - Urinary tract infection, site not specified (5) JEREMIE (acute kidney injury) Diagnosis: Principal ICD Codes: N17.9 - Acute kidney failure, unspecified (6) Acute hypokalemia Diagnosis: Principal ICD Codes: E87.6 - Hypokalemia (7) Pancytopenia due to antineoplastic chemotherapy Diagnosis: Principal ICD Codes: D61.810 - Antineoplastic chemotherapy induced pancytopenia; T45.1X5A - Adverse effect of antineoplastic and immunosuppressive drugs, initial encounter Status: Acute (8) Dehydration Diagnosis: Principal ICD Codes: E86.0 - Dehydration (9) COPD (chronic obstructive pulmonary disease) Diagnosis: Secondary ICD Codes: J44.9 - Chronic obstructive pulmonary disease, unspecified (10) Depression Diagnosis: Secondary ICD Codes: F32.9 - Major depressive disorder, single episode, unspecified Status: Chronic (11) GERD (gastroesophageal reflux disease) Diagnosis: Secondary ICD Codes: K21.9 - Gastro-esophageal reflux disease without esophagitis Status: Chronic (12) HTN (hypertension) Diagnosis: Secondary ICD Codes: I10 - Essential (primary) hypertension Status: Chronic Brief History Patient is a pleasant 66-year-old female with history of hypertension, COPD, depression, GERD. Patient was recently diagnosed with uterine carcinoma. Patient follows with [facility] oncology, Dr. Pam Stephenson. Patient was recently started on chemotherapy, Taxol and carboplatin. Patient underwent recent laparoscopic hysterectomy and bilateral salpingo-oophorectomy. Patient presented to the ER with complaint of fever, shortness of breath, generalized weakness. Patient underwent first chemotherapy treatment week ago. Patient is febrile here in the ER with MAXIMUM TEMPERATURE of 101.9. Patient is noted to be neutropenic. Case is discussed with covering oncologist, Dr. Lewis. Patient was given cefepime IV in the ER and this will be continued. Patient also be given Neupogen per Dr. Do. Patient complains of decreased appetite, but no nausea vomiting or diarrhea. Patient will be admitted to [facility] for further evaluation treatments. We will follow the blood culture results. CBC/BMP: 08/19/17 0603 Significant Findings Laboratory Tests Test 08/19/17 06:03 Red Blood Count 3.47 MIL/MM3 (4.00-5.30) Hemoglobin 10.4 GM/DL (11.6-15.3) Hematocrit 30.4 % (35.0-46.0) Red Cell Distribution Width 19.9 % (11.6-17.2) Platelet Count 36 TH/MM3 (150-450) Monocytes (%) (Auto) 9.7 % (0.0-8.0) Hospital Course A/P Problem List: (1) Neutropenic fever 1. Pt with endometrial ca undergoing chemo presents with neutropenic fever 2. questionable small left lung pna 3. uti. ecoli, proteus 4. some distention of small bowel on kub with diarrhea and abdomen cramps now better. repeat kub improved 5. jeremie with dehydration and hypokalemia. improved 6. general weakness 7. pancytopenia related to chemo d/c orders written for snf s/p 2 units blood 08/18 plt trending up on day of d/c She was given gscf with recovery of her wbc fever resolved and she will complete another week of levaquin She will go to snf for rehab prior to next cycle of chemo. 2) Pneumonia (3) Hypocalcemia (4) COPD (chronic obstructive pulmonary disease) (5) HTN (hypertension) (6) GERD (gastroesophageal reflux disease) (7) Depression Pt Condition on Discharge: Stable Discharge Disposition: Discharge to SNF Discharge Instructions DIET: Follow Instructions for: As Tolerated, No Restrictions Activities you can perform: Regular-No Restrictions Follow up Referrals: Oncology - [address] STEPHENSON New Medications: Levofloxacin (Levaquin) 500 Mg Tablet 500 MG PO DAILY for Infection for 7 Days, #7 TAB 0 Refills Continued Medications: Albuterol 18 GM Inh (Ventolin Hfa 18 GM Inh) 90 Mcg/Act Aer 2 PUFF INH Q4-6H PRN for SHORTNESS OF BREATH, #1 INHALER 0 Refills Alendronate (Alendronate) 70 Mg Tab 70 MG PO Q7D for Osteporosis Treatment, #4 TAB 0 Refills Alprazolam (Alprazolam) 0.25 Mg Tab 0.25 MG PO BID PRN for ANXIETY, #15 TAB 0 Refills (This prescription has been renewed) Amlodipine (Amlodipine) 2.5 Mg Tab 2.5 MG PO DAILY for Blood Pressure Management, #30 TAB 0 Refills Atorvastatin (Atorvastatin) 40 Mg Tab 40 MG PO HS for Cholesterol Management, #30 TAB 0 Refills Ohrzjtljm-Zdxehvyftkt-Eodetbm (Osteo Bi-Flex One A Day) 1 Tab 1 TAB PO BID, TAB Budesonide DR (Budesonide DR) 3 Mg Capdr 3 MG PO DAILY, #60 CAP 0 Refills Calcium Carbonate-Vitamin D (Calcium + D3) 600-200 Mg-Unit Tab 1 TAB CHEW BID, TAB Escitalopram (Escitalopram) 20 Mg Tab 20 MG PO DAILY, #30 TAB 0 Refills Lactobacillus Acidophilus (Probiotic) 10 Billion Cell Cap 1 CAP PO TIDAC for Nutritional Supplement, #90 CAP 0 Refills Lisinopril (Lisinopril) 10 Mg Tab 10 MG PO DAILY, #30 TAB 0 Refills Magnesium Oxide (Magnesium Oxide) 500 Mg Tab 500 MG PO DAILY, TAB 0 Refills Omeprazole (Omeprazole) 20 Mg Tab 20 MG PO DAILY, #30 TAB 0 Refills Oxybutynin (Ditropan) 5 Mg Tab 5 MG PO Q12HR for Urinary Symptom Managemen, #60 TAB 0 Refills Umeclidinium [place] Inh (Incruse Ellipta Inh) 0.0625 Mg/Act Inh 62.5 MCG INH DAILY for Treat COPD, #1 INHALER 0 Refills Discontinued Medications: Aspirin (Aspirin) 81 Mg Chew 81 MG CHEW DAILY, TAB 0 Refills Raffi Santillan MD Aug 21, 2017 15:02
== END 2017-08-19 15:32 | DRG 808 ==
LOC: NEPE 15:59 → NEDA 17:44 → HOCA 20:11
PROVIDERS: ADMIT Hospitalist; ATTEND Hospitalist
PROC: 30233N1 Transfusion of Nonautologous Red Blood Cells into Peripheral Vein, Percutaneous Approach (ICD-10-PCS; principal; 2017-08-18)
DX: D70.1 Agranulocytosis secondary to cancer chemotherapy (principal); J18.9 Pneumonia, unspecified organism; N17.9 Acute kidney failure, unspecified; E46 Unspecified protein-calorie malnutrition; E87.1 Hypo-osmolality and hyponatremia; J44.0 Chronic obstructive pulmonary disease with (acute) lower respiratory infection; N39.0 Urinary tract infection, site not specified; E86.0 Dehydration; B96.20 Unspecified Escherichia coli [E. coli] as the cause of diseases classified elsewhere; C54.1 Malignant neoplasm of endometrium; I10 Essential (primary) hypertension; F32.9 Major depressive disorder, single episode, unspecified; K21.9 Gastro-esophageal reflux disease without esophagitis; M19.90 Unspecified osteoarthritis, unspecified site; E78.5 Hyperlipidemia, unspecified; E87.6 Hypokalemia; G62.9 Polyneuropathy, unspecified; E83.42 Hypomagnesemia; E83.51 Hypocalcemia; R50.81 Fever presenting with conditions classified elsewhere; R62.7 Adult failure to thrive; F41.9 Anxiety disorder, unspecified; T45.1X5A Adverse effect of antineoplastic and immunosuppressive drugs, initial encounter; Z96.659 Presence of unspecified artificial knee joint; Z87.891 Personal history of nicotine dependence; Z90.710 Acquired absence of both cervix and uterus
CPT/HCPCS: 36430; 36598; 71010; 71020; 74000; 80048; 80053; 80202; 81001; 82550; 82552; 83605; 83735; 84155; 84484; 85007; 85025; 85027; 85610; 85730; 86850; 86900; 86901; 86920; 87040; 87077; 87086; 87186; 87493; 87804; 93005; 94640; 94664; 96360; J0456; J0610; J0692; J1170; J1442; J1642; J1940; J2405; J2997; J3370; J3480; J7030; J7040; J7050; P9016; Q9967

== ENCOUNTER 2018-01-30 03:43 | Inpatient (IN) | payer MEDICARE ==
[~2018-01-30] VITALS: Ht 157.5 cm; Wt 83.0 kg
[~2018-01-30 03:43] MED LIST changes: +ALPR0.25 PO; -ALPR2TAB3 PO; -ASPI81CH CHEW; +LEVA500T33 PO; -OMEP20TA PO; +OMEP20TA93 PO; -OXYB5TAB10 PO; +OXYB5TAB8 PO; +UMEC1INH INH
[2018-01-30 03:55] VITALS: BP 135/71; PULSE 127; RESP 16; TEMP 100.7; O2SAT 96
--- NOTE | 2018-01-30 03:56 | PD ---
HPI Chief Complaint: Fever, confusion Time Seen by Provider: 03:56 Travel History International Travel<30 days: No Contact w/Intl Traveler<30days: No Traveled to known affect area: No History of Present Illness HPI 67-year-old female came to the emergency room brought by EMS for fever, confusion and some shortness of breath that has been going on for past 3 days. Patient has history of cervical cancer and has had total hysterectomy done by Dr. Palomo. She was getting chemotherapy through a port that is placed on the right side of her chest. As per her to the paramedics the last chemotherapy was 6 weeks ago. Patient has also been complaining of some pain at the site of the port. Vital signs were relatively stable as per the EMS. T- max has been 102.5. In the emergency room upon arrival temperature was 101.5. Patient is awake and looks anxious. She is trying to answer questions but seems a little disoriented with the time. PFSH Past Medical History Narrative Medical List of her past medical, surgical, social and family history is reviewed from the nursing note. Arthritis: No Asthma: No Anxiety: Yes Depression: No Heart Rhythm Problems: No Cancer: No (CERVICAL) Cardiovascular Problems: No High Cholesterol: Yes Chemotherapy: Yes Chest Pain: No Congestive Heart Failure: No COPD: Yes Cerebrovascular Accident: No Diabetes: No Diminished Hearing: No Endocrine: No Gastrointestinal Disorders: Yes (ACID REFLUX) GERD: Yes Genitourinary: No Hepatitis: No Hiatal Hernia: No Hypertension: Yes Immune Disorder: No Implanted Vascular Access Dvce: Yes Kidney Stones: No Musculoskeletal: Yes (ARTHRITIS) Neurologic: No Psychiatric: Yes (ANXIETY) Reproductive: No Respiratory: Yes (COPD) Migraines: No Renal Failure: No Sickle Cell Disease: No Sleep Apnea: No Thyroid Disease: No Ulcer: No PNEUMOCCOCAL Vaccine (Year): 1 Menopausal: Yes Tubal Ligation: Yes Past Surgical History Abdominal Surgery: No Body Medical Devices: NONE Cardiac Surgery: No Ear Surgery: No Endocrine Surgery: No Eye Surgery: Yes (LEFT CATARACT) Genitourinary Surgery: No Gynecologic Surgery: Yes (C SECTION, REMOVAL FALLOPIAN TUBE) Hysterectomy: Yes Joint Replacement: Yes (LEFT TOTAL KNEE REPLACEMENT) Oral Surgery: Yes (TONSILLECTOMY) Pacemaker: No Thoracic Surgery: No Tonsillectomy: Yes Other Surgery: Yes (D AND C BREAST BX BENIGN HEMROIDS) Social History Alcohol Use: Yes (socially) Tobacco Use: No Substance Use: No Allergies-Medications (Allergen,Severity, Reaction): Coded Allergies: penicillin G (Unverified Allergy, Severe, UNKNOWN, 06/28/17) propoxyphene (Unverified Allergy, Severe, HEADACHE AND NAUSEA, 06/28/17) Comments List of her allergies reviewed from the nursing note. Reported Meds & Prescriptions Reported Meds & Active Scripts Active Levaquin (Levofloxacin) 500 Mg Tablet 500 Mg PO DAILY 7 Days Alprazolam 0.25 Mg Tab 0.25 Mg PO BID PRN Reported Incruse Ellipta Inh (Umeclidinium [place] Inh) 0.0625 Mg/Act Inh 62.5 Mcg INH DAILY Osteo Bi-Flex One A Day (Btowhbsll-Vxkfqealqdw-Rmfcmdl) 1 Tab 1 Tab PO BID Probiotic (Lactobacillus Acidophilus) 10 Billion Cell Cap 1 Cap PO TIDAC Magnesium Oxide 500 Mg Tab 500 Mg PO DAILY Calcium + D3 (Calcium Carbonate-Vitamin D) 600-200 Mg-Unit Tab 1 Tab CHEW BID Ventolin Hfa 18 GM Inh (Albuterol Sulfate) 90 Mcg/Act Aer 2 Puff INH Q4-6H PRN Ditropan (Oxybutynin Chloride) 5 Mg Tab 5 Mg PO Q12HR Omeprazole 20 Mg Tab 20 Mg PO DAILY Lisinopril 10 Mg Tab 10 Mg PO DAILY Escitalopram (Escitalopram Oxalate) 20 Mg Tab 20 Mg PO DAILY Budesonide DR (Budesonide) 3 Mg Capdr 3 Mg PO DAILY Atorvastatin (Atorvastatin Calcium) 40 Mg Tab 40 Mg PO HS Amlodipine (Amlodipine Besylate) 2.5 Mg Tab 2.5 Mg PO DAILY Alendronate (Alendronate Sodium) 70 Mg Tab 70 Mg PO Q7D Narrative Medication List of her home medications reviewed from the nursing note. Review of Systems ROS Limitations: Altered Mental Status Except as stated in HPI: all other systems reviewed are Neg General / Constitutional: Positive: Fever Physical Exam Narrative GENERAL: Awake, alert, moderate distress, anxious, confused SKIN: Focused skin assessment warm/dry. HEAD: Atraumatic. Normocephalic. EYES: Pupils equal and round. No scleral icterus. No injection or drainage. ENT: No nasal bleeding or discharge. Mucous membranes pink and moist. NECK: Trachea midline. No JVD. CARDIOVASCULAR: Regular rate and rhythm. No murmur appreciated. RESPIRATORY: No accessory muscle use. Coarse bibasilar crackles GASTROINTESTINAL: Abdomen soft, non-tender, nondistended. Hepatic and splenic margins not palpable. MUSCULOSKELETAL: No obvious deformities. No clubbing. No cyanosis. No edema. NEUROLOGICAL: Awake and but confused. No obvious cranial nerve deficits. Motor grossly within normal limits. Normal speech. PSYCHIATRIC: Appropriate mood and affect; insight and judgment normal. Data Data Last Documented VS Orders Orders Sepsis Workup Initiated (01/30/18 ) Complete Blood Count With Diff (01/30/18 03:56) Comprehensive Metabolic Panel (01/30/18 03:56) Lactic Acid Sepsis Protocol (01/30/18 03:56) Urinalysis - C+S If Indicated (01/30/18 03:56) Blood Culture (01/30/18 03:56) Chest, Single Ap (01/30/18 03:56) Blood Glucose (01/30/18 03:56) Ecg Monitoring (01/30/18 03:56) Iv Access Insert/Monitor (01/30/18 03:56) Oximetry (01/30/18 03:56) Oxygen Administration (01/30/18 03:56) Sodium Chlor 0.9% 1000 Ml Inj (Ns 1000 M (01/30/18 04:00) Influenzae A/B Antigen (01/30/18 03:56) Aztreonam Inj (Azactam Inj) (01/30/18 04:00) Vancomycin Inj (Vancomycin Inj) (01/30/18 04:00) Ct Brain W/O Iv Contrast(Rout) (01/30/18 ) Admit Order (Ed Use Only) (01/30/18 05:16) Sodium Chlor 0.9% 1000 Ml Inj (Ns 1000 M (01/30/18 05:30) Labs Laboratory Tests Test 01/30/18 04:00 White Blood Count 6.9 TH/MM3 Red Blood Count 2.72 MIL/MM3 Hemoglobin 9.6 GM/DL Hematocrit 27.6 % Mean Corpuscular Volume 101.3 FL Mean Corpuscular Hemoglobin 35.2 PG Mean Corpuscular Hemoglobin Concent 34.8 % Red Cell Distribution Width 13.6 % Platelet Count 158 TH/MM3 Mean Platelet Volume 7.5 FL CBC Comment AUTO DIFF Differential Total Cells Counted 100 Neutrophils % (Manual) 66 % Band Neutrophils % 18 % Lymphocytes % 12 % Monocytes % 3 % Basophils % 1 % Neutrophils # (Manual) 5.8 TH/MM3 Differential Comment FINAL DIFF MANUAL Dohle Bodies PRESENT Platelet Estimate NORMAL Platelet Morphology Comment NORMAL Red Cell Morphology Comment NORMAL Blood Urea Nitrogen 16 MG/DL Creatinine 1.21 MG/DL Random Glucose 118 MG/DL Total Protein 7.2 GM/DL Albumin 3.1 GM/DL Calcium Level 9.0 MG/DL Alkaline Phosphatase 316 U/L Aspartate Amino Transf (AST/SGOT) 35 U/L Alanine Aminotransferase (ALT/SGPT) 32 U/L Total Bilirubin 0.6 MG/DL Sodium Level 130 MEQ/L Potassium Level 3.6 MEQ/L Chloride Level 96 MEQ/L Carbon Dioxide Level 20.7 MEQ/L Anion Gap 13 MEQ/L Estimat Glomerular Filtration Rate 44 ML/MIN Lactic Acid Level 0.8 mmol/L MDM Medical Decision Making Medical Screen Exam Complete: Yes Emergency Medical Condition: Yes Medical Record Reviewed: Yes Differential Diagnosis Sepsis, pneumonia, UTI Narrative Course 5:09 AM blood test results are back and patient has slight hyponatremia. White blood cell count and lactic acid is within normal limits but the differential shows 18% bands. However given the fever and confusion I would like to bring this patient to the hospital for admission. Awaiting for the hospitalist to call back. Patient was given Tylenol for her fever here. Patient was given IV fluid bolus and Zosyn and vancomycin upon arrival. Critical Care Narrative Aggregate critical care time was 30 minutes. Time to perform other separately billable procedures was not included in the critical care time. My time did not include minutes spent treating any other patients simultaneously or on activities that did not directly contribute to the patient's treatment. The services I provided to this patient were to treat and/or prevent clinically significant deterioration that could result in: Bandemia, sepsis protocol I provided critical care services requiring my management, as noted below: Chart data review, documentation time, medication orders and management, vital sign assessments/reviewing monitor data, ordering and reviewing lab tests, ordering and interpreting/reviewing x-rays and diagnostic studies, care of the patient and discussion of the patient with the admitting physicians. Procedures EKG Prior to Arrival: No Sepsis Criteria SIRS Criteria (2 or more): Temp > 100.9 or < 96.8, Heart rate over 90, WBC > 81976, < 4000 or > 10% bands Diagnosis Primary Impression: Fever Qualified Codes: R50.9 - Fever, unspecified Additional Impressions: Confusion Bandemia Admitting Information Admitting Physician Requests: it Kristopher Arce MD Jan 30, 2018 03:56
[2018-01-30] MEDS ORDERED: AZTREONAM INJ 1,000 MG in SODIUM CHLORIDE 0.9% INJ 100 ML IV ONE (04:00)
[2018-01-30] MEDS ORDERED: SODIUM CHLOR 0.9% 1000 ML INJ 1,000 ML IV ONE ×2 (04:00→05:30)
[2018-01-30] MEDS ORDERED: VANCOMYCIN INJ 1,000 MG in SODIUM CHLOR 0.9% 250 ML INJ 250 ML IV ONE (04:00)
[2018-01-30 04:27] LABS: HEMATOCRIT 27.6 % (35.0-46.0); HEMOGLOBIN 9.6 GM/DL (11.6-15.3); MEAN CELL VOLUME 101.3 FL (80.0-100.0); MEAN CORPUSCULAR HEMOGLOBIN 35.2 PG (27.0-34.0); MEAN CORPUSCULAR HGB CONC 34.8 % (32.0-36.0); MEAN PLATELET VOLUME 7.5 FL (7.0-11.0); PLATELET COUNT 158 TH/MM3 (150-450); RED BLOOD COUNT 2.72 MIL/MM3 (4.00-5.30); RED CELL DISTRIBUTION WIDTH 13.6 % (11.6-17.2); WHITE BLOOD COUNT 6.9 TH/MM3 (4.0-11.0)
[2018-01-30 04:37] LABS: ALBUMIN 3.1 GM/DL (3.4-5.0); AST (GOT) 35 U/L (15-37); BICARBONATE 20.7 MEQ/L (21.0-32.0); BLOOD UREA NITROGEN 16 MG/DL (7-18); CHLORIDE 96 MEQ/L (98-107); CREATININE 1.21 MG/DL (0.50-1.00); GLOMERULAR FILTRATION RATE 44 ML/MIN (>89); GLUCOSE,RANDOM 118 MG/DL (74-106); SODIUM (NA) 130 MEQ/L (136-145)
[2018-01-30 04:38] LABS: ALT (GPT) 32 U/L (10-53)
[2018-01-30 04:40] LABS: ALKALINE PHOSPHATASE 316 U/L (45-117); TOTAL BILIRUBIN ADULT 0.6 MG/DL (0.2-1.0); TOTAL PROTEIN 7.2 GM/DL (6.4-8.2)
--- NOTE | 2018-01-30 04:41 | RADRPT ---
EXAM DATE/TIME: 01/30/2018 04:15 [facility] COMPARISON: CHEST PA & LAT, August 15, 2017, 8:38. CHEST SINGLE AP, August 14, 2017, 12:53. INDICATIONS : Shortness of breath, confusion. MEDICAL HISTORY : CA cervix SURGICAL HISTORY : Infusaport ENCOUNTER: Initial ACUITY: 1 day PAIN SCORE: 0/10 LOCATION: Bilateral chest FINDINGS: A single view of the chest demonstrates the lungs to be symmetrically aerated without evidence of mas s, infiltrate or effusion. Stable linear scarring at the left base. The cardiomediastinal contours are unremarkable. Osseous structures are intact. Gjzugg-t-Iyls catheter tip in the distal superior vena cava. CONCLUSION: No acute findings. Stable linear atelectasis or scarring in the left lower lobe. Mike Mayorga MD on January 30, 2018 at 4:39 Board Certified Radiologist. This report was verified electronically.
[2018-01-30 05:08] LABS: BANDS 18 % (0-6); BASOPHILS 1 % (0-2); DOHLE BODIES PRESENT (NONE SEEN); LYMPHOCYTES 12 % (9-44); MONOCYTES 3 % (0-8); NEUTROPHIL # MANUAL DIFF 5.8 TH/MM3 (1.8-7.7); POLYS (SEG NEUTROPHILS) 66 % (16-70)
--- NOTE | 2018-01-30 05:53 | RADRPT ---
EXAM DATE/TIME: 01/30/2018 05:29 [facility] COMPARISON: No previous studies available for comparison. INDICATIONS : Altered mental status. RADIATION DOSE: 33.15 CTDIvol (mGy) MEDICAL HISTORY : Hypertension. Chronic obstructive pulmonary disease. Carcinoma, ovarian.GERD SURGICAL HISTORY : Hysterectomy. Total knee replacement, left. ENCOUNTER: Initial ACUITY: 1 day PAIN SCALE: 0/10 LOCATION: cranial TECHNIQUE: Multiple contiguous axial images were obtained of the head. Using automated exposure control and adj ustment of the mA and/or kV according to patient size, radiation dose was kept as low as reasonably a chievable to obtain optimal diagnostic quality images. DICOM format image data is available electro nically for review and comparison. FINDINGS: CEREBRUM: The ventricles are normal for age. No evidence of midline shift, mass lesion, hemorrhage or acute in farction. No extra-axial fluid collections are seen. POSTERIOR FOSSA: The cerebellum and brainstem are intact. The 4th ventricle is midline. The cerebellopontine angle i s unremarkable. EXTRACRANIAL: The visualized portion of the orbits is intact. SKULL: The calvaria is intact. No evidence of skull fracture. CONCLUSION: Negative noncontrast CT brain. Mike Mayorga MD on January 30, 2018 at 5:50 Board Certified Radiologist. This report was verified electronically.
[2018-01-30 06:24] LABS: BACTERIA, URINE OCC /hpf; BILIRUBIN, URINE NEG (NEG); BLOOD, URINE TRACE (NEG); GLUCOSE,URINE NEG (NEG); KETONE, URINE 10 mg/dL (NEG); NITRITE,URINE POS (NEG); SQUAMOUS EPITHELIAL CELL URINE <1 /hpf (0-5); URINE COLOR YELLOW (YELLW/STRAW); URINE LEUKOCYTE ESTERASE MOD (NEG)
[2018-01-30 07:30] VITALS: BP 129/66; PULSE 97; RESP 20; TEMP 98.2; O2SAT 98
--- NOTE | 2018-01-30 07:58 | HHI.HP ---
HPI Service [facility] Primary Care Physician Waldo Barraza M.D. Admission Diagnosis Sepsis, fever, altered mental status Chief Complaint: fever and confusion Travel History International Travel<30 Days: No Contact w/Intl Traveler <30 Da: No Traveled to Known Affected Are: No History of Present Illness This is a 67-year-old female patient with history of hypertension, COPD, depression/anxiety, GERD, osteoarthritis, hyperlipidemia, pancreatitis and uterine carcinoma. Patient follows with [facility], Dr. Pam Palomo. Patient completed 6 rounds of Taxol and carboplatin chemotherapy about 6 weeks ago. Patient is currently confused and a poor historian. Information gathered from patient as well as prior charting. Patient presented to the emergency room brought by EMS for fever, confusion and soreness at the right PORT site. Patient reports her shortness of breath is at her baseline due to her COPD. Patient still has her port in place on the right side of her chest. Patient has a planned PET scan in 3 months and patient had planned to keep PORT until after PET scan. T-max at home has been 102.5. In the emergency room upon arrival temperature was 101.5. UA reviewed and consistent with UTI CXR shows: No acute findings. Stable linear atelectasis or scarring in the left lower lobe. CT head Negative noncontrast CT brain. Blood cultures are pending Patient was started on Aztreonam and vancomycin in the ER Review of Systems ROS Limitations: Clinical Condition, Altered Mental Status, Poor Historian Past Family Social History Past Medical History 1) hypertension 2) COPD 3) depression with anxiety 4) GERD 5) osteoarthritis 6) hyperlipidemia 7) colitis 8) history of pancreatitis 9) uterine carcinoma Past Surgical History 1) left cataract surgery 2) section 3) tubal ligation 4) hysterectomy with bilateral salpingotomy and oophorectomy in 2017 5) total left knee arthroplasty in 2011 6) colonoscopy 2010 7) tonsillectomy 8) dilation and curettage 9) hemorrhoid surgery 10) benign breast biopsy Reported Medications Levaquin (Levofloxacin) 500 Mg Tablet 500 Mg PO DAILY 7 Days Alprazolam 0.25 Mg Tab 0.25 Mg PO BID PRN Incruse Ellipta Inh (Umeclidinium [place] Inh) 0.0625 Mg/Act Inh 62.5 Mcg INH DAILY Osteo Bi-Flex One A Day (Hswjcuvai-Zcvjrnancla-Diylanz) 1 Tab 1 Tab PO BID Probiotic (Lactobacillus Acidophilus) 10 Billion Cell Cap 1 Cap PO TIDAC Magnesium Oxide 500 Mg Tab 500 Mg PO DAILY Calcium + D3 (Calcium Carbonate-Vitamin D) 600-200 Mg-Unit Tab 1 Tab CHEW BID Ventolin Hfa 18 GM Inh (Albuterol Sulfate) 90 Mcg/Act Aer 2 Puff INH Q4-6H PRN Ditropan (Oxybutynin Chloride) 5 Mg Tab 5 Mg PO Q12HR Omeprazole 20 Mg Tab 20 Mg PO DAILY Lisinopril 10 Mg Tab 10 Mg PO DAILY Escitalopram (Escitalopram Oxalate) 20 Mg Tab 20 Mg PO DAILY Budesonide DR (Budesonide) 3 Mg Capdr 3 Mg PO DAILY Atorvastatin (Atorvastatin Calcium) 40 Mg Tab 40 Mg PO HS Amlodipine (Amlodipine Besylate) 2.5 Mg Tab 2.5 Mg PO DAILY Alendronate (Alendronate Sodium) 70 Mg Tab 70 Mg PO Q7D Allergies: Coded Allergies: penicillin G (Unverified Allergy, Severe, UNKNOWN, 06/28/17) propoxyphene (Unverified Allergy, Severe, HEADACHE AND NAUSEA, 06/28/17) Family History Noncontributory Social History - - Former smoker, patient quit smoking 10 years ago - Occasional alcoholic beverage - No illicit street drugs Physical Exam Vital Signs Vital Signs Date Time Temp Pulse Resp B/P (MAP) Pulse Ox O2 Delivery O2 Flow Rate FiO2 01/30/18 04:02 96 Nasal Cannula 2.00 01/30/18 03:55 100.7 127 16 135/71 (92) 96 Physical Exam GENERAL: This is a well-nourished, well-developed patient, ill appearing SKIN: PORT R side of chest with ecchymosis at PORT sitecore developer: Atraumatic. Normocephalic. No temporal or scalp tenderness. EYES: Extraocular motions intact. No scleral icterus. No injection or drainage. CARDIOVASCULAR: Regular rate and rhythm with 2/6 systolic murmur RESPIRATORY: Clear to auscultation. Breath sounds equal bilaterally. GASTROINTESTINAL: Abdomen soft, non-tender, nondistended. MUSCULOSKELETAL: Extremities without clubbing, cyanosis, or edema. No joint tenderness, effusion, or edema noted. No calf tenderness. Negative Homans sign bilaterally. NEUROLOGICAL: Awake and alert, with confusion regarding details. No focal deficits noted Motor and sensory grossly within normal limits. 4-5 out of 5 muscle strength in all muscle groups. Laboratory Laboratory Tests Test 01/30/18 04:00 01/30/18 06:05 White Blood Count 6.9 Red Blood Count 2.72 Hemoglobin 9.6 Hematocrit 27.6 Mean Corpuscular Volume 101.3 Mean Corpuscular Hemoglobin 35.2 Mean Corpuscular Hemoglobin Concent 34.8 Red Cell Distribution Width 13.6 Platelet Count 158 Mean Platelet Volume 7.5 CBC Comment AUTO DIFF Differential Total Cells Counted 100 Neutrophils % (Manual) 66 Band Neutrophils % 18 Lymphocytes % 12 Monocytes % 3 Basophils % 1 Neutrophils # (Manual) 5.8 Differential Comment FINAL DIFF MANUAL Dohle Bodies PRESENT Platelet Estimate NORMAL Platelet Morphology Comment NORMAL Red Cell Morphology Comment NORMAL Blood Urea Nitrogen 16 Creatinine 1.21 Random Glucose 118 Total Protein 7.2 Albumin 3.1 Calcium Level 9.0 Alkaline Phosphatase 316 Aspartate Amino Transf (AST/SGOT) 35 Alanine Aminotransferase (ALT/SGPT) 32 Total Bilirubin 0.6 Sodium Level 130 Potassium Level 3.6 Chloride Level 96 Carbon Dioxide Level 20.7 Anion Gap 13 Estimat Glomerular Filtration Rate 44 Lactic Acid Level 0.8 Urine Color YELLOW Urine Turbidity HAZY Urine pH 6.0 Urine Specific [place] 1.007 Urine Protein 30 Urine Glucose (UA) NEG Urine Ketones 10 Urine Occult Blood TRACE Urine Nitrite POS Urine Bilirubin NEG Urine Urobilinogen LESS THAN 2.0 Urine Leukocyte Esterase MOD Urine WBC 23 Urine Squamous Epithelial Cells <1 Urine Bacteria OCC Microscopic Urinalysis Comment CULTURE INDICATED Date/Time Source Procedure Growth Status 01/30/18 04:05 Blood Peripheral Aerobic Blood Culture Pending Received 01/30/18 04:05 Blood Peripheral Anaerobic Blood Culture Pending Received 01/30/18 04:05 Nasal Aspirate Influenza Types A,B Antigen (YASH) - Final NEGATIVE FOR FLU A AND B ANTIGEN.... Complete 01/30/18 06:05 Urine Clean Catch Urine Culture Pending Received Result Diagram: 01/30/18 0400 01/30/18 0400 Imaging Last Impressions Chest X-Ray 01/30/18 0356 Signed Impressions: Service Date/Time: Tuesday, January 30, 2018 04:15 - CONCLUSION: No acute findings. Stable linear atelectasis or scarring in the left lower lobe. Mike Mayorga MD Head CT 01/30/18 0000 Signed Impressions: Service Date/Time: Tuesday, January 30, 2018 05:29 - CONCLUSION: Negative noncontrast CT brain. Mike Mayorga MD Septic Shock Reassessment Septic shock perfusion: reassessment completed Caprini VTE Risk Assessment Caprini VTE Risk Assessment: Mod/High Risk (score >= 2) Caprini Risk Assessment Model Point Value = 1 Point Value = 2 Point Value = 3 Point Value = 5 Age 41-60 Minor surgery BMI > 25 kg/m2 Swollen legs Varicose veins or History of unexplained or recurrent spontaneous Oral contraceptives or hormone replacement Sepsis (< 1 month) Serious lung disease, including pneumonia (< 1 month) Abnormal pulmonary function Acute myocardial infarction Congestive heart failure (< 1 month) History of inflammatory bowel disease Medical patient at bed rest Age 61-74 Arthroscopic surgery Major open surgery (> 45 min) Laparoscopic surgery (> 45 min) Malignancy Confined to bed (> 72 hours) Immobilizing plaster cast Central venous access Age >= 75 History of VTE Family history of VTE Factor V Leiden Prothrombin [id number] Lupus anticoagulant Anticardiolipin antibodies Elevated serum homocysteine Heparin-induced thrombocytopenia Other congenital or acquired thrombophilia Stroke (< 1 month) Elective arthroplasty Hip, pelvis, or leg fracture Acute spinal cord injury (< 1 month) Prophylaxis Regimen Total Risk Factor Score Risk Level Prophylaxis Regimen 0-1 Low Early ambulation 2 Moderate Order ONE of the following: *Sequential Compression Device (SCD) *Heparin 5000 units SQ BID 3-4 Higher Order ONE of the following medications: *Heparin 5000 units SQ TID *Enoxaparin/Lovenox 40 mg SQ daily (WT < 150 kg, CrCl > 30 mL/min) *Enoxaparin/Lovenox 30 mg SQ daily (WT < 150 kg, CrCl > 10-29 mL/min) *Enoxaparin/Lovenox 30 mg SQ BID (WT < 150 kg, CrCl > 30 mL/min) AND/OR *Sequential Compression Device (SCD) 5 or more Highest Order ONE of the following medications: *Heparin 5000 units SQ TID (Preferred with Epidurals) *Enoxaparin/Lovenox 40 mg SQ daily (WT < 150 kg, CrCl > 30 mL/min) *Enoxaparin/Lovenox 30 mg SQ daily (WT < 150 kg, CrCl > 10-29 mL/min) *Enoxaparin/Lovenox 30 mg SQ BID (WT < 150 kg, CrCl > 30 mL/min) AND *Sequential Compression Device (SCD) Assessment and Plan Problem List: (1) Fever ICD Codes: R50.9 - Fever, unspecified Status: Acute Plan: This is a 67-year-old female patient with history of hypertension, COPD, depression/anxiety, GERD, osteoarthritis, hyperlipidemia, pancreatitis and uterine carcinoma. Patient follows with [facility], Dr. Pam Palomo. Patient completed 6 rounds of Taxol and carboplatin chemotherapy about 6 weeks ago. Fever, confusion and some shortness of breath x 3 days. Patient still has her port in place on the right side of her chest. As per her patient has also been complaining of some pain at the site of the port. T-max at home has been 102.5. In the emergency room upon arrival temperature was 101.5. UA reviewed and consistent with UTI Urine culture pending CXR shows: No acute findings. Stable linear atelectasis or scarring in the left lower lobe CT head negative Blood cultures obtained and pending area surrounding Right sided PORT tender to palpation Patient initially refusing blood culture from PORT. Now agreeable Requested blood culture from PORT Patient was started on Aztreonam and vancomycin in the ER, will continue with pharmacy consult to dose vancomycin Hyponatremia Likely related to poor PO intake IVF recheck in AM DVT prophylaxis with SCDs (2) UTI (urinary tract infection) ICD Codes: N39.0 - Urinary tract infection, site not specified (3) Confusion ICD Codes: R41.0 - Disorientation, unspecified Status: Acute (4) Bandemia ICD Codes: D72.825 - Bandemia Status: Acute (5) Hyponatremia ICD Codes: E87.1 - Hypo-osmolality and hyponatremia Assessment and Plan Patient examined. Assessment and plan formulated with Mariana Badillo PA-C. I agree with the above. fever and AMS...improved ams. consider port infection. blood and urine cx pending. broad abx coverage. will discuss port removal with dr Palomo if removal needed. Physician Certification 2 Midnight Certification Type: Admission for Inpatient Services Order for Inpatient Services The services are ordered in accordance with Medicare regulations or non- Medicare payer requirements, as applicable. In the case of services not specified as inpatient-only, they are appropriately provided as inpatient services in accordance with the 2-midnight benchmark. Estimated LOS (days): 4 days is the estimated time the patient will need to remain in the hospital, assuming treatment plan goals are met and no additional complications. Post-Hospital Plan: Not yet determined Problem Qualifiers (1) Fever: Qualified Codes: R50.9 - Fever, unspecified Mariana Badillo Jan 30, 2018 07:58 Raffi Santillan MD Jan 30, 2018 20:04
[2018-01-30] MEDS ORDERED: SODIUM CHLOR 0.9% 1000 ML INJ 1,000 ML IV SCH (09:10)
[2018-01-30] MEDS ORDERED: ONDANSETRON HCL 4 MG/2 ML VIAL IVP PRN (09:15)
[2018-01-30] MEDS ORDERED: Vancomycin Consult Pharmacy 1 EA OTHER SCH (09:15)
[2018-01-30] MEDS ORDERED: NALOXONE HCL 0.4 MG/ML AMP IV PUSH PRN (09:15)
[2018-01-30] MEDS ORDERED: MAGNESIUM HYDROXIDE SUSP 30 ML CUP PO PRN (09:15)
[2018-01-30] MEDS ORDERED: SODIUM CHLORIDE 0.9% FLUSH 10 ML FLUSH IV FLUSH PRN (09:15)
[2018-01-30 11:36] VITALS: BP 136/65; PULSE 80; RESP 15; O2SAT 97
[2018-01-30] MEDS ORDERED: AZTREONAM INJ 1,000 MG in SODIUM CHLORIDE 0.9% INJ 100 ML IV SCH (12:00)
[2018-01-30] MEDS ORDERED: VANCOMYCIN 500 MG/NS 100 ML IV ONE ×2 (13:00)
[2018-01-30 15:15] VITALS: BP 169/81; PULSE 81; RESP 19; O2SAT 98
[2018-01-30] MEDS ORDERED: LIDOCAINE 4% CREAM 5 GM TUBE TOPICAL ONE (15:45)
[2018-01-30] MEDS: NS + KCL 20 MEQ INJ 1,000 ML IV SCH (17:13)
[2018-01-30] MEDS: AZTREONAM INJ 1,000 MG in SODIUM CHLORIDE 0.9% INJ 100 ML IV SCH (18:42)
[2018-01-30] MEDS: SODIUM CHLORIDE 0.9% FLUSH 10 ML FLUSH IV FLUSH SCH (21:00)
[2018-01-30] MEDS: DOCUSATE SODIUM 50 MG/SENNA 8.6 MG TAB PO SCH (21:00)
[2018-01-31 00:37] VITALS: BP 149/75; PULSE 66; RESP 18; TEMP 98.9; O2SAT 96
[2018-01-31] MEDS: AZTREONAM INJ 1,000 MG in SODIUM CHLORIDE 0.9% INJ 100 ML IV SCH ×4 (03:14→18:41)
[2018-01-31 04:09] VITALS: BP 139/66; PULSE 67; RESP 18; TEMP 98.8; O2SAT 95
[2018-01-31] MEDS: NS + KCL 20 MEQ INJ 1,000 ML IV SCH (04:44)
[2018-01-31] MEDS ORDERED: VANCOMYCIN INJ 1,500 MG in SODIUM CHLORID 0.9% 500 ML INJ 500 ML IV SCH (06:00)
[2018-01-31 07:17] LABS: AUTOMATED NEUTROPHIL # 7.5 TH/MM3 (1.8-7.7); BASOPHIL % 0.1 % (0.0-2.0); HEMATOCRIT 23.9 % (35.0-46.0); HEMOGLOBIN 8.3 GM/DL (11.6-15.3); LYMPH % 7.4 % (9.0-44.0); LYMPHOCYTE # 0.7 TH/MM3 (1.0-4.8); MEAN CELL VOLUME 102.2 FL (80.0-100.0); MEAN CORPUSCULAR HEMOGLOBIN 35.6 PG (27.0-34.0); MEAN CORPUSCULAR HGB CONC 34.9 % (32.0-36.0); MONO % 8.6 % (0.0-8.0); MONOCYTE # 0.8 TH/MM3 (0-0.9); NEUT % 83.9 % (16.0-70.0); PLATELET COUNT 155 TH/MM3 (150-450); RED BLOOD COUNT 2.34 MIL/MM3 (4.00-5.30); RED CELL DISTRIBUTION WIDTH 13.5 % (11.6-17.2)
[2018-01-31 07:53] LABS: ALBUMIN 2.4 GM/DL (3.4-5.0); ALKALINE PHOSPHATASE 211 U/L (45-117); ALT (GPT) 25 U/L (10-53); AST (GOT) 15 U/L (15-37); BICARBONATE 20.2 MEQ/L (21.0-32.0); BLOOD UREA NITROGEN 13 MG/DL (7-18); CALCIUM 7.9 MG/DL (8.5-10.1); CHLORIDE 107 MEQ/L (98-107); CREATININE 0.66 MG/DL (0.50-1.00); GLOMERULAR FILTRATION RATE 89 ML/MIN (>89); GLUCOSE,RANDOM 121 MG/DL (74-106); SODIUM (NA) 137 MEQ/L (136-145); TOTAL BILIRUBIN ADULT 0.3 MG/DL (0.2-1.0); TOTAL PROTEIN 6.3 GM/DL (6.4-8.2)
[2018-01-31 08:00] VITALS: BP 124/71; PULSE 61; RESP 20; TEMP 98.6; O2SAT 95
[2018-01-31] MEDS: DOCUSATE SODIUM 50 MG/SENNA 8.6 MG TAB PO SCH ×2 (09:00→21:00)
[2018-01-31] MEDS: SODIUM CHLORIDE 0.9% FLUSH 10 ML FLUSH IV FLUSH SCH ×2 (10:56→21:20)
[2018-01-31 11:58] VITALS: BP 125/66; PULSE 72; RESP 18; TEMP 98.2; O2SAT 97
--- NOTE | 2018-01-31 13:47 | HHI.PR ---
Subjective Remarks Patient reports feeling better than yesterday offers no medical complaints PORT site no longer tender Objective Vitals Vital Signs Date Time Temp Pulse Resp B/P (MAP) Pulse Ox O2 Delivery O2 Flow Rate FiO2 01/31/18 11:58 98.2 72 18 125/66 (85) 97 01/31/18 08:00 98.6 61 20 124/71 (88) 95 01/31/18 04:09 98.8 67 18 139/66 (90) 95 01/31/18 00:37 98.9 66 18 149/75 (99) 96 01/30/18 15:15 81 19 169/81 (110) 98 Room Air 01/31/18 01/31/18 02/01/18 15:00 23:00 07:00 Intake Total 100 ml Balance 100 ml IV Total 100 ml Result Diagram: 01/31/18 0615 01/31/18 0615 Other Results Laboratory Tests Test 01/30/18 04:00 01/30/18 06:05 01/31/18 06:15 White Blood Count 6.9 TH/MM3 9.0 TH/MM3 Red Blood Count 2.72 MIL/MM3 2.34 MIL/MM3 Hemoglobin 9.6 GM/DL 8.3 GM/DL Hematocrit 27.6 % 23.9 % Mean Corpuscular Volume 101.3 FL 102.2 FL Mean Corpuscular Hemoglobin 35.2 PG 35.6 PG Mean Corpuscular Hemoglobin Concent 34.8 % 34.9 % Red Cell Distribution Width 13.6 % 13.5 % Platelet Count 158 TH/MM3 155 TH/MM3 Mean Platelet Volume 7.5 FL 8.0 FL CBC Comment AUTO DIFF DIFF FINAL Differential Total Cells Counted 100 Neutrophils % (Manual) 66 % Band Neutrophils % 18 % Lymphocytes % 12 % Monocytes % 3 % Basophils % 1 % Neutrophils # (Manual) 5.8 TH/MM3 Differential Comment FINAL DIFF MANUAL Dohle Bodies PRESENT Platelet Estimate NORMAL Platelet Morphology Comment NORMAL Red Cell Morphology Comment NORMAL Blood Urea Nitrogen 16 MG/DL 13 MG/DL Creatinine 1.21 MG/DL 0.66 MG/DL Random Glucose 118 MG/DL 121 MG/DL Total Protein 7.2 GM/DL 6.3 GM/DL Albumin 3.1 GM/DL 2.4 GM/DL Calcium Level 9.0 MG/DL 7.9 MG/DL Alkaline Phosphatase 316 U/L 211 U/L Aspartate Amino Transf (AST/SGOT) 35 U/L 15 U/L Alanine Aminotransferase (ALT/SGPT) 32 U/L 25 U/L Total Bilirubin 0.6 MG/DL 0.3 MG/DL Sodium Level 130 MEQ/L 137 MEQ/L Potassium Level 3.6 MEQ/L 3.8 MEQ/L Chloride Level 96 MEQ/L 107 MEQ/L Carbon Dioxide Level 20.7 MEQ/L 20.2 MEQ/L Anion Gap 13 MEQ/L 10 MEQ/L Estimat Glomerular Filtration Rate 44 ML/MIN 89 ML/MIN Lactic Acid Level 0.8 mmol/L Urine Color YELLOW Urine Turbidity HAZY Urine pH 6.0 Urine Specific [place] 1.007 Urine Protein 30 mg/dL Urine Glucose (UA) NEG mg/dL Urine Ketones 10 mg/dL Urine Occult Blood TRACE Urine Nitrite POS Urine Bilirubin NEG Urine Urobilinogen LESS THAN 2.0 MG/DL Urine Leukocyte Esterase MOD Urine WBC 23 /hpf Urine Squamous Epithelial Cells <1 /hpf Urine Bacteria OCC /hpf Microscopic Urinalysis Comment CULTURE INDICATED Neutrophils (%) (Auto) 83.9 % Lymphocytes (%) (Auto) 7.4 % Monocytes (%) (Auto) 8.6 % Eosinophils (%) (Auto) 0.0 % Basophils (%) (Auto) 0.1 % Neutrophils # (Auto) 7.5 TH/MM3 Lymphocytes # (Auto) 0.7 TH/MM3 Monocytes # (Auto) 0.8 TH/MM3 Eosinophils # (Auto) 0.0 TH/MM3 Basophils # (Auto) 0.0 TH/MM3 Imaging Last Impressions Chest X-Ray 01/30/18 0356 Signed Impressions: Service Date/Time: Tuesday, January 30, 2018 04:15 - CONCLUSION: No acute findings. Stable linear atelectasis or scarring in the left lower lobe. Mike Mayorga MD Head CT 01/30/18 0000 Signed Impressions: Service Date/Time: Tuesday, January 30, 2018 05:29 - CONCLUSION: Negative noncontrast CT brain. Mike Mayorga MD Objective Remarks GENERAL: This is a well-nourished, well-developed patient, in no apparent distress. CARDIOVASCULAR: Regular rate and rhythm 2/6 systolic murmur RESPIRATORY: Clear to auscultation. Breath sounds equal bilaterally. GASTROINTESTINAL: Abdomen soft, non-tender, nondistended. Normal active bowel sounds MUSCULOSKELETAL: Extremities without clubbing, cyanosis, or edema. NEURO: Alert & Oriented x4 to person, place, time, situation. Moves all ext x4 A/P Problem List: (1) Fever ICD Codes: R50.9 - Fever, unspecified Status: Acute Plan: This is a 67-year-old female patient with history of hypertension, COPD, depression/anxiety, GERD, osteoarthritis, hyperlipidemia, pancreatitis and uterine carcinoma. Patient follows with [facility], Dr. Pam Palomo. Patient completed 6 rounds of Taxol and carboplatin chemotherapy about 6 weeks ago. Fever, confusion and some shortness of breath x 3 days. Patient still has her port in place on the right side of her chest. As per her patient has also been complaining of some pain at the site of the port. T-max at home has been 102.5. In the emergency room upon arrival temperature was 101.5. UA reviewed and consistent with UTI Urine culture pending CXR shows: No acute findings. Stable linear atelectasis or scarring in the left lower lobe CT head negative Initially area surrounding Right sided PORT tender to palpation -> improving Patient initially refusing blood culture from PORT. Now agreeable blood culture from PORT pending Patient was started on Aztreonam and vancomycin in the ER, will continue with pharmacy consult to dose vancomycin Peripheral Blood cultures growing Staph Aureus sensitivity pending 2D echocardiogram requested Discussed with Dr. Palomo he agrees with removing PORT Discussed results possible treatments and the need to remove PORT with patient and daughter over the phone Consult radiology to remove PORT Hyponatremia Likely related to poor PO intake IVF NA on admission 130 -> 137 (01/31) DVT prophylaxis with SCDs (2) UTI (urinary tract infection) ICD Codes: N39.0 - Urinary tract infection, site not specified (3) Confusion ICD Codes: R41.0 - Disorientation, unspecified Status: Acute (4) Bandemia ICD Codes: D72.825 - Bandemia Status: Acute (5) Hyponatremia ICD Codes: E87.1 - Hypo-osmolality and hyponatremia Assessment and Plan Patient examined. Assessment and plan formulated with Mariana Badillo PA-C. I agree with the above. staph bacteremia. port site tenderness better. likely port infection. advise removing port. callled dr Palomo who agrees. will ask ID. will need picc and 2-4 weeks abx..await final sens. echo ordered. Problem Qualifiers (1) Fever: Qualified Codes: R50.9 - Fever, unspecified Mariana Badillo Jan 31, 2018 13:47 Raffi Santillan MD Jan 31, 2018 14:15
[2018-01-31] MEDS ORDERED: ALBUTEROL SULFATE 90 MCG/ACT HFA 8 GM INHALER INH PRN (14:00)
[2018-01-31] MEDS ORDERED: ALPRAZolam 0.25 MG TAB PO PRN (14:00)
[2018-01-31] MEDS: PANTOPRAZOLE SOD 20 MG DELAYED RELEASE TAB PO SCH (15:00)
[2018-01-31] MEDS: ESCITALOPRAM OXALATE 20 MG TAB PO SCH (15:00)
[2018-01-31] MEDS ORDERED: LORazepam 2 MG/ML VIAL ONE (16:04)
[2018-01-31] MEDS ORDERED: LIDOCAINE 1%/EPINEPHrine 1:100,000 SOLN 30 ML VIAL ONE (16:10)
[2018-01-31] MEDS ORDERED: SODIUM BICARBONATE 8.4% INJ 50 ML ONE (16:15)
--- NOTE | 2018-01-31 16:35 | PD.RAD ---
Post Procedure Progress Note Pre Procedure Diagnosis: (1) Sepsis Post Procedure Diagnosis: (1) Sepsis Procedure Date: Jan 31, 2018 Supervising Radiologist: Geraldo Segal Estimated blood loss: 3cc Anesthesia: Local, Conscious Sedation Plan of Activity Patient to Unit: Nursing Unit Patient Condition: Fair Additional Comments: Port removed from the right chest without difficulty. Full dictated report to follow See PACS Report for procedural detail/treatment Geraldo Segal MD Jan 31, 2018 16:35
[2018-01-31 21:00] VITALS: BP 126/60; PULSE 76; RESP 17; TEMP 98; O2SAT 99
[2018-01-31] MEDS: OXYBUTYNIN CHLORIDE 5 MG TAB PO SCH (21:20)
[2018-01-31] MEDS: ATORVASTATIN 40 MG TAB PO SCH (21:20)
[2018-02-01] VITALS (8 sets, daily range): BP systolic 117–190; BP diastolic 62–93; PULSE 69–85; RESP 18–22; TEMP 97.5–98.6; O2SAT 90–99
[2018-02-01] MEDS: VANCOMYCIN INJ 1,500 MG in SODIUM CHLORID 0.9% 500 ML INJ 500 ML IV SCH ×2 (00:23→19:41)
[2018-02-01] MEDS: AZTREONAM INJ 1,000 MG in SODIUM CHLORIDE 0.9% INJ 100 ML IV SCH ×3 (03:18→18:13)
[2018-02-01] MEDS: ACETAMINOPHEN 325 MG TAB PO PRN ×3 (03:55→22:24)
[2018-02-01] MEDS ORDERED: PATIENT OWN MEDICATION (Umeclidinium Bromide Inh (Incruse Ellipta Inh) 62.5 MCG) INH SCH (09:00)
[2018-02-01] MEDS ORDERED: BUDESONIDE 3 MG PO SCH (09:00)
--- NOTE | 2018-02-01 09:06 | PD.CONS ---
History of Present Illness Service Infectious disease Consult Requested By Dr. Clark Reason for Consult Evaluate patient with line sepsis Primary Care Physician Waldo Barraza M.D. Diagnoses: History of Present Illness Patient seen and examined. Records reviewed. Patient is a 67-year-old female, presented to the hospital for evaluation of very high fever, and confusion. She has underlying COPD, and uterine cancer. She has received 6 cycles of chemotherapy and finished December 06. The day prior to admission she had experienced some soreness on her port and she noted that it was swollen. There was no redness. That same day she had very high fever up to 102, and she was apparently lethargic and very confused so the took her to the hospital for further evaluation and treatment. Patient stated that she has not had any problem with her port. It has been working well , and gets accessed only when she gets her chemotherapy, and not for any kind of blood draw. Patient also had some pyuria in her urine. She denies any dysuria or any problem with urination. She denies any significant congestion or cough. She does have her baseline breathing pattern and has not really changed and this is related to her known COPD. She has not had any nausea, vomiting, or diarrhea. Highest temperatures since she came in was 100.7. Influenza testing is pending. Urinalysis with some pyuria. Urine culture is pending. Blood cultures are growing staph aureus. The port was removed yesterday. Infectious disease consultation has been requested to evaluate the patient for line sepsis. Review of Systems Constitutional: COMPLAINS OF: Fever, Chills Eyes: DENIES: Eye pain Ears, nose, mouth, throat: DENIES: Nasal discharge, Oral lesions, Throat pain, Ear Pain, Sinus Pain Respiratory: COMPLAINS OF: Shortness of breath, DENIES: Cough, Sputum production Cardiovascular: DENIES: Chest pain, Palpitations, Syncope Gastrointestinal: DENIES: Abdominal pain, Constipation, Diarrhea, Nausea, Vomiting, Difficulty Swallowing Genitourinary: DENIES: Urinary frequency, Urinary incontinence, Urgency, Hematuria, Dysuria Musculoskeletal: DENIES: Joint pain, Muscle aches Integumentary: DENIES: Rash Hematologic/lymphatic: DENIES: Lymphadenopathy Neurologic: DENIES: Localized weakness Psychiatric: COMPLAINS OF: Confusion Past Family Social History Allergies: Coded Allergies: penicillin G (Unverified Allergy, Severe, UNKNOWN, 06/28/17) propoxyphene (Unverified Allergy, Severe, HEADACHE AND NAUSEA, 06/28/17) Past Medical History Hypertension COPD Depression with anxiety GERD Osteoarthritis Hyperlipidemia Colitis History of pancreatitis Uterine carcinoma Past Surgical History Left cataract surgery section Tubal ligation Hysterectomy with bilateral salpingotomy and oophorectomy in 2017 Total left knee arthroplasty in 2011 Colonoscopy 2011 Tonsillectomy Dilation and curettage Hemorrhoid surgery Benign breast biopsy Active Ordered Medications Current Medications Medications (Trade) Dose Ordered Sig/Radha Route Start Time Stop Time Status Last Admin (NS Flush) 2 ml UNSCH PRN IV FLUSH 01/30/18 09:15 (NS Flush) 2 ml BID IV FLUSH 01/30/18 21:00 01/31/18 21:20 (Tylenol) 650 mg Q4H PRN PO 01/30/18 09:15 02/01/18 03:55 (Zofran Inj) 4 mg Q6H PRN IVP 01/30/18 09:15 (Narcan Inj) 0.4 mg UNSCH PRN IV PUSH 01/30/18 09:15 (Carmen-Colace) 1 tab BID PO 01/30/18 21:00 01/31/18 09:00 (Milk Of Magnmelanie Liq) 30 ml Q12H PRN PO 01/30/18 09:15 Pharmacy Profile Note 0 ml @ 0 mls/hr UNSCH OTHER 01/30/18 09:15 Miscellaneous Information SPECIFIC LAB TO BE DRAWN:VANCOMYCIN TROUGH DATE TO... ONCE ONCE .XX 02/02/18 11:45 02/02/18 11:46 Aztreonam 1000 mg/ Sodium Chloride 100 ml @ 200 mls/hr Q8H IV 01/30/18 18:00 02/01/18 03:18 Vancomycin HCl 1500 mg/Sodium Chloride 515 ml @ 250 mls/hr Q18H IV 02/01/18 00:00 02/01/18 00:23 (Proair Hfa Inh) 2 puff Q6H PRN INH 01/31/18 14:00 (Xanax) 0.25 mg BID PRN PO 01/31/18 14:00 (Norvasc) 2.5 mg DAILY PO 02/01/18 09:00 (Lipitor) 40 mg HS PO 01/31/18 21:00 01/31/18 21:20 (Lexapro) 20 mg DAILY PO 01/31/18 15:00 01/31/18 15:00 (Prinivil) 10 mg DAILY PO 02/01/18 09:00 (Ditropan) 5 mg Q12HR PO 01/31/18 21:00 01/31/18 21:20 Patient Own Medication PT OWN MED: (Budeson... DAILY PO 02/01/18 09:00 Future Hold (Protonix) 20 mg DAILY PO 01/31/18 15:00 01/31/18 15:00 Patient Own Medication PT OWN MED: (Umeclidinium [place] ... DAILY INH 02/01/18 09:00 Future Hold Family History Noncontributory Social History Former smoker, patient quit smoking 10 years ago Occasional alcoholic beverage No illicit street drugs Physical Exam Vital Signs Vital Signs Date Time Temp Pulse Resp B/P (MAP) Pulse Ox O2 Delivery O2 Flow Rate FiO2 02/01/18 08:26 98.4 80 20 190/93 (125) 94 162/80 (107) 02/01/18 03:45 98.6 69 22 130/66 (87) 98 02/01/18 00:30 97.6 75 18 125/66 (85) 99 01/31/18 21:00 98.0 76 17 126/60 (82) 99 01/31/18 11:58 98.2 72 18 125/66 (85) 97 Physical Exam GENERAL: Patient is a well-nourished, well-developed female, slightly lethargic, but does respond to my questioning, not in respiratory distress. SKIN: Warm and dry. No generalized rash, no ecchymoses and no evidence of embolic lesions. HEAD: Atraumatic. Normocephalic. No temporal wasting, or tenderness. EYES: Pale conjunctiva. No petechia or hemorrhage. Pupils equal, round and reactive to light. Extraocular movements full and intact. No scleral icterus. No injection or drainage. EARS, NOSE AND THROAT: Nose without bleeding or purulent nasal discharge. No sinus tenderness. Mucous membranes pink and moist. No oral lesions noted. No exudate. No oral thrush. NECK: Trachea midline. Supple and not tender, no meningeal signs CARDIOVASCULAR: Regular rate and rhythm. No murmurs, rubs or gallops heard. Dry intact dressing over her previous port site RESPIRATORY: Clear to auscultation. Breath sounds equal bilaterally. No rales , wheezing or rhonchi ABDOMEN: Soft, non-tender, nondistended. Bowel sounds present and normoactive. No guarding. No rebound. No organomegaly. EXTREMITIES: No clubbing, cyanosis, or edema.No joint effusion, has good ROM. No calf tenderness. Well perfused and warm. NEUROLOGICAL: Awake and alert. Cranial nerves grossly intact. Motor grossly within normal limits. PSYCHIATRIC: Normal affect, calm and cooperative. LINE: No evidence of infection Laboratory Date/Time Source Procedure Growth Status 01/30/18 23:30 Blood Line Aerobic Blood Culture - Preliminary Gram Positive Cocci Resulted 01/30/18 23:30 Blood Line Anaerobic Blood Culture - Preliminary Resulted 01/30/18 04:05 Nasal Aspirate Influenza Types A,B Antigen (YASH) - Final NEGATIVE FOR FLU A AND B ANTIGEN.... Complete 01/30/18 06:05 Urine Clean Catch Urine Culture - Preliminary IMMATURE GROWTH - REINCUBATE Resulted Result Diagram: 01/31/18 0615 01/31/18 0615 Imaging RADIOLOGY STUDIES/FILMS REVIEWED Last Impressions Chest X-Ray 01/30/18 0356 Signed Impressions: Service Date/Time: Tuesday, January 30, 2018 04:15 - CONCLUSION: No acute findings. Stable linear atelectasis or scarring in the left lower lobe. Mike Mayorga MD Head CT 01/30/18 0000 Signed Impressions: Service Date/Time: Tuesday, January 30, 2018 05:29 - CONCLUSION: Negative noncontrast CT brain. Mike Mayorga MD Assessment and Plan Assessment and Plan IMPRESSION Staph aureus sepsis, likely due to port infection - port removed, but could not find any C/S Pyuria, no symptoms Known uterine CA, S/P chemo COPD Allergies to penicillin, but she has tolerated cephalosporins RECOMMENDATION Repeat blood cultures to document clearing Await echocardiogram I will change Azactam to cefepime Continue IV vancomycin Will adjust antibiotics once cultures are available Follow temps Monitor progress I will determine course of antibiotics once workup is completed I will follow along with you I will be 00T February 02-, other ID M.D. will be covering in my absence Thank you for this consultation Discussed Condition With Explained plan to the patient Dawn Ocasio MD Feb 01, 2018 09:06
[2018-02-01] MEDS: LISINOPRIL 10 MG TAB PO SCH (10:16)
[2018-02-01] MEDS: DOCUSATE SODIUM 50 MG/SENNA 8.6 MG TAB PO SCH ×2 (10:16→21:00)
[2018-02-01] MEDS: PANTOPRAZOLE SOD 20 MG DELAYED RELEASE TAB PO SCH (10:16)
[2018-02-01] MEDS: OXYBUTYNIN CHLORIDE 5 MG TAB PO SCH ×2 (10:16→22:19)
[2018-02-01] MEDS: ESCITALOPRAM OXALATE 20 MG TAB PO SCH (10:16)
[2018-02-01] MEDS: amLODIPine BESYLATE 5 MG TAB PO SCH (10:16)
[2018-02-01] MEDS: SODIUM CHLORIDE 0.9% FLUSH 10 ML FLUSH IV FLUSH SCH ×2 (10:17→21:00)
[2018-02-01] MEDS ORDERED: ONDANSETRON HCL 4 MG/2 ML VIAL IVP PRN (10:45)
--- NOTE | 2018-02-01 10:47 | HHI.PR ---
Subjective Remarks feels nauseated Objective Vitals heart reg lung cta abd s/nt ext no edema Vital Signs Date Time Temp Pulse Resp B/P (MAP) Pulse Ox O2 Delivery O2 Flow Rate FiO2 02/01/18 08:26 98.4 80 20 190/93 (125) 94 162/80 (107) 02/01/18 03:45 98.6 69 22 130/66 (87) 98 02/01/18 00:30 97.6 75 18 125/66 (85) 99 01/31/18 21:00 98.0 76 17 126/60 (82) 99 01/31/18 11:58 98.2 72 18 125/66 (85) 97 Result Diagram: 01/31/18 0615 01/31/18 0615 Imaging Last Impressions Chest X-Ray 01/30/18 0356 Signed Impressions: Service Date/Time: Tuesday, January 30, 2018 04:15 - CONCLUSION: No acute findings. Stable linear atelectasis or scarring in the left lower lobe. Mike Mayorga MD Head CT 01/30/18 0000 Signed Impressions: Service Date/Time: Tuesday, January 30, 2018 05:29 - CONCLUSION: Negative noncontrast CT brain. Mike Mayorga MD A/P Problem List: (1) Intravenous catheter sepsis ICD Codes: T82.7XXA - Infection and inflammatory reaction due to other cardiac and vascular devices, implants and grafts, initial encounter; A41.9 - Sepsis, unspecified organism Status: Acute Plan: This is a 67-year-old female patient with history of hypertension, COPD, depression/anxiety, GERD, osteoarthritis, hyperlipidemia, pancreatitis and uterine carcinoma. Patient follows with [facility] oncology, Dr. Pam Palomo. Patient completed 6 rounds of Taxol and carboplatin chemotherapy about 6 weeks ago. Fever, confusion and some shortness of breath x 3 days. Patient still has her port in place on the right side of her chest. As per her patient has also been complaining of some pain at the site of the port. T-max at home has been 102.5. In the emergency room upon arrival temperature was 101.5. staph aureus line sepsis. removed on 01/31 uti with gnr. dehydration and hyponatremia. improved with ivf htn f/u 2 d echo survellience blood cx's cont broad abx and f/u all cx's decide when picc to be placed and length of abx rx cont current bp meds antiemetics dvt prophyaxis (2) Fever ICD Codes: R50.9 - Fever, unspecified Status: Acute (3) UTI (urinary tract infection) ICD Codes: N39.0 - Urinary tract infection, site not specified Status: Acute (4) Confusion ICD Codes: R41.0 - Disorientation, unspecified Status: Acute (5) Bandemia ICD Codes: D72.825 - Bandemia Status: Acute (6) Hyponatremia ICD Codes: E87.1 - Hypo-osmolality and hyponatremia Problem Qualifiers (1) Fever: Qualified Codes: R50.9 - Fever, unspecified Raffi Santillan MD Feb 01, 2018 10:47
[2018-02-01] MEDS: ENOXAPARIN SODIUM 40 MG/0.4 ML SYRINGE SQ SCH (13:10)
--- NOTE | 2018-02-01 13:25 | RADRPT ---
EXAM DATE/TIME: 01/31/2018 00:00 [facility] COMPARISON: [facility] ACCESS DEV PAT W/SVC, August 17, 2017, 8:36. INDICATIONS : Patient with history of uterine carcinoma in need of [id number] removal. MEDICAL HISTORY : HTN, HLD, COPD, GERD, Osteoarthritis, Pancreatitis, Colitis SURGICAL HISTORY : Hysterectomy with bilateral salpingotomy and oophorectomy 2017, Colonoscopy, Benign breast biopsy, Po rt placement ENCOUNTER: Subsequent ACUITY: 7-11 months PAIN SCORE: 0/10 SEDATION TIME: 30 minutes 1.) 2 mg lorazepam (Ativan) IV 2.) 100 mcg fentanyl (Sublimaze) IV PROCEDURE : 1. Removal of Phcflr-x-xsem. 2. Conscious sedation with continuous EKG and oximetry monitoring. The risk, benefits and potential complications of Ytupoe-v-Xkit removal were discussed. Written conse nt was obtained. The patient was placed supine. The chest wall was prepped in sterile fashion. Full sterile techniqu e was used, including cap, mask, sterile gloves and gown, and a large sterile sheet. Hand hygiene an d 2% chlorhexidine and/or Betadine/alcohol prep was utilized per protocol for cutaneous antisepsis. The skin and subcutaneous tissues were infiltrated with local anesthetic solution. A small incision w as made, the subcutaneous pocket was opened. The port was dissected from the subcutaneous tissues and easily removed in one piece. The pocket incision was closed with subcuticular Vicryl suture. Steri -Strips were applied. Conscious sedation was performed with the prescribed dosages and duration as above in the presence of an independent trained radiology nurse to assist in the monitoring of the patient. EKG and oximetry remained stable throughout the procedure. The patient tolerated the procedure well and there were no complications. The patient was sent to post anesthesia recovery in stable condition. CONCLUSION: Uncomplicated port removal as above. Geraldo Segal MD on February 01, 2018 at 13:23 Board Certified Radiologist. This report was verified electronically.
[2018-02-01] MEDS ORDERED: TIOTROPIUM BROMIDE 18 MCG INH INH ONE (13:30)
[2018-02-01] MEDS ORDERED: RESP: ALBUTEROL 2.5 MG/IPRATROPIUM 0.5 MG NEB (SCH) NEB STA (13:30)
[2018-02-01] MEDS: RESP: ALBUTEROL 2.5 MG/IPRATROPIUM 0.5 MG NEB (SCH) NEB ×2 (17:55→20:24)
[2018-02-01] MEDS: ACETAMINOPHEN/HYDROcodone 325 MG/5 MG TAB PO PRN (18:35)
[2018-02-01] MEDS ORDERED: ALUMINUM/MAGNESIUM/SIMETH 30 ML CUP PO PRN (19:15)
--- NOTE | 2018-02-01 19:34 | ECHRPT ---
Indication: SEPSIS ENDOCARDITIS CONCLUSIONS Mildly dilated left ventricle. Wall thickness is normal. The left ventricular systolic function is normal with an estimated ejection fraction in the range of 55-60%. Mitral annular calcification is present. Trace to mild mitral valve regurgitation. Aortic valve sclerosis is present. BP: 126 / 60 HR: 76 Rhythm: MEASUREMENTS (Male / Female) Normal Values Technical Quality: 2D ECHO LV Diastolic Diameter PLAX 5.0 cm 4.2 - 5.9 / 3.9 - 5.3 cm LV Systolic Diameter PLAX 3.9 cm IVS Diastolic Thickness 1.0 cm 0.6 - 1.0 / 0.6 - 0.9 cm LVPW Diastolic Thickness 0.8 cm 0.6 - 1.0 / 0.6 - 0.9 cm LV Relative Wall Thickness 0.4 RV Internal Dim ED PLAX 2.3 cm LA Systolic Diameter LX 3.3 cm 3.0 - 4.0 / 2.7 - 3.8 cm M-MODE Aortic Root Diameter MM 3.5 cm AV Cusp Separation MM 2.0 cm DOPPLER MR Peak Velocity 617.0 cm/s MR Peak Gradient 152.3 mmHg TR Peak Velocity 308.0 cm/s TR Peak Gradient 37.9 mmHg Right Atrial Pressure 5.0 mmHg Pulmonary Artery Systolic Pressu 42.9 mmHg Right Ventricular Systolic Press 42.9 mmHg FINDINGS LEFT VENTRICLE Mildly dilated left ventricle. Wall thickness is normal. The left ventricular systolic function is normal with an estimated ejection fraction in the range of 55-60%. RIGHT VENTRICLE Normal right ventricular size and systolic function. LEFT ATRIUM The left atrial size is normal. RIGHT ATRIUM The right atrial size is normal. ATRIAL SEPTUM Normal atrial septal thickness without atrial level shunting by limited color doppler interrogation. AORTA The aortic root and proximal ascending aorta are normal in size on limited imaging. MITRAL VALVE Mitral annular calcification is present. Trace to mild mitral valve regurgitation. AORTIC VALVE Aortic valve sclerosis is present. TRICUSPID VALVE Structurally normal tricuspid valve. No tricuspid valve stenosis or regurgitation. PULMONARY VALVE No pulmonary valve regurgitation or stenosis. VESSELS The inferior vena cava is normal in size. PERICARDIUM No pericardial effusion. Gavi Tovar MD, FACC (Electronically Signed) Final Date:01 February 2018 19:33
[2018-02-01] MEDS: ATORVASTATIN 40 MG TAB PO SCH (22:20)
[2018-02-02] VITALS (8 sets, daily range): BP systolic 110–173; BP diastolic 59–82; PULSE 69–94; RESP 18–20; TEMP 96.8–99.4; O2SAT 91–97
[2018-02-02] MEDS: AZTREONAM INJ 1,000 MG in SODIUM CHLORIDE 0.9% INJ 100 ML IV SCH ×3 (02:27→16:15)
[2018-02-02 05:34] LABS: BICARBONATE 24.3 MEQ/L (21.0-32.0); CALCIUM 8.3 MG/DL (8.5-10.1); CREATININE 0.8 MG/DL (0.50-1.00)
[2018-02-02] MEDS: ACETAMINOPHEN/HYDROcodone 325 MG/5 MG TAB PO PRN (07:09)
[2018-02-02] MEDS: RESP: ALBUTEROL 2.5 MG/IPRATROPIUM 0.5 MG NEB (SCH) NEB ×3 (08:27→20:00)
[2018-02-02] MEDS: TIOTROPIUM BROMIDE 18 MCG INH INH SCH (09:00)
[2018-02-02] MEDS: SODIUM CHLORIDE 0.9% FLUSH 10 ML FLUSH IV FLUSH SCH ×2 (09:00→22:06)
[2018-02-02] MEDS: ESCITALOPRAM OXALATE 20 MG TAB PO SCH (09:13)
[2018-02-02] MEDS: DOCUSATE SODIUM 50 MG/SENNA 8.6 MG TAB PO SCH ×2 (09:13→22:06)
[2018-02-02] MEDS: PANTOPRAZOLE SOD 20 MG DELAYED RELEASE TAB PO SCH (09:13)
[2018-02-02] MEDS: POTASSIUM CHLORIDE 20 MEQ CONTROLLED RELEASE TAB PO SCH ×2 (09:13→12:09)
[2018-02-02] MEDS: OXYBUTYNIN CHLORIDE 5 MG TAB PO SCH ×2 (09:13→22:06)
[2018-02-02] MEDS: amLODIPine BESYLATE 5 MG TAB PO SCH (09:14)
[2018-02-02] MEDS: LISINOPRIL 10 MG TAB PO SCH (09:14)
[2018-02-02] MEDS ORDERED: cloNIDine HCL 0.1 MG TAB PO PRN (11:30)
[2018-02-02] MEDS ORDERED: NAPROXEN 500 MG TAB PO ONE (11:30)
--- NOTE | 2018-02-02 11:34 | HHI.PR ---
Subjective Remarks c/o ant cw msk pain with moving c/o indigestion c/o h/a and general weakness Objective Vitals oriented no labored breathing heart reg lung few right base crackles abd s/nt ext no edema old right chest port site...no cellulitis tender over ant cw. Vital Signs Date Time Temp Pulse Resp B/P (MAP) Pulse Ox O2 Delivery O2 Flow Rate FiO2 02/02/18 08:52 98.2 75 20 173/81 (111) 93 02/02/18 04:00 98.5 87 18 118/65 (82) 96 02/02/18 00:45 93 02/02/18 00:00 97.3 82 18 117/62 (80) 91 02/01/18 20:24 92 21 02/01/18 20:00 97.5 85 18 117/62 (80) 90 02/01/18 17:57 94 02/01/18 15:47 98.5 79 20 165/75 (105) 92 02/01/18 11:47 98.5 76 20 176/76 (109) 94 02/02/18 02/02/18 02/03/18 15:00 23:00 07:00 # Voids 3 Result Diagram: 01/31/18 0615 02/02/18 0439 Imaging Last Impressions Chest X-Ray 01/30/18 0356 Signed Impressions: Service Date/Time: Tuesday, January 30, 2018 04:15 - CONCLUSION: No acute findings. Stable linear atelectasis or scarring in the left lower lobe. Mike Mayorga MD Head CT 01/30/18 0000 Signed Impressions: Service Date/Time: Tuesday, January 30, 2018 05:29 - CONCLUSION: Negative noncontrast CT brain. Mike Mayorga MD A/P Problem List: (1) Intravenous catheter sepsis ICD Codes: T82.7XXA - Infection and inflammatory reaction due to other cardiac and vascular devices, implants and grafts, initial encounter; A41.9 - Sepsis, unspecified organism Status: Acute Plan: This is a 67-year-old female patient with history of hypertension, COPD, depression/anxiety, GERD, osteoarthritis, hyperlipidemia, pancreatitis and uterine carcinoma. Patient follows with [facility] oncology, Dr. Pam Palomo. Patient completed 6 rounds of Taxol and carboplatin chemotherapy about 6 weeks ago. Fever, confusion and some shortness of breath x 3 days. Patient still has her port in place on the right side of her chest. As per her patient has also been complaining of some pain at the site of the port. T-max at home has been 102.5. In the emergency room upon arrival temperature was 101.5. staph aureus line sepsis. removed on 01/31 uti with citrobacter dehydration and hyponatremia. improved with ivf htn msk cp mild worsening of her chronic anemia. no bleeding. f/u 2 d echo no vegetation noted. survellience blood cx's from 02/01 pending cont broad abx and f/u all cx's decide when picc to be placed and length of abx rx with ID cont current bp meds. add prn add ppi/reglan. antiemetics dvt prophyaxis PT (2) Fever ICD Codes: R50.9 - Fever, unspecified Status: Acute (3) UTI (urinary tract infection) ICD Codes: N39.0 - Urinary tract infection, site not specified Status: Acute (4) Confusion ICD Codes: R41.0 - Disorientation, unspecified Status: Acute (5) Bandemia ICD Codes: D72.825 - Bandemia Status: Acute (6) Hyponatremia ICD Codes: E87.1 - Hypo-osmolality and hyponatremia Problem Qualifiers (1) Fever: Qualified Codes: R50.9 - Fever, unspecified Raffi Santillan MD Feb 02, 2018 11:33
[2018-02-02] MEDS ORDERED: PHARMACY ORDERED LAB ONE (11:45)
[2018-02-02] MEDS: ENOXAPARIN SODIUM 40 MG/0.4 ML SYRINGE SQ SCH (12:10)
[2018-02-02] MEDS: METOCLOPRAMIDE HCL 10 MG TAB PO SCH ×3 (12:14→22:07)
[2018-02-02] MEDS: VANCOMYCIN INJ 1,500 MG in SODIUM CHLORID 0.9% 500 ML INJ 500 ML IV SCH (13:07)
[2018-02-02] MEDS ORDERED: POTASSIUM CHLORIDE 20 MEQ CONTROLLED RELEASE TAB PO ONE (14:30)
[2018-02-02] MEDS: ATORVASTATIN 40 MG TAB PO SCH (22:07)
[2018-02-02] MEDS: NAPROXEN 500 MG TAB PO SCH (22:07)
[2018-02-03] VITALS (7 sets, daily range): BP systolic 122–142; BP diastolic 64–81; PULSE 66–94; RESP 18; TEMP 97.6–98.4; O2SAT 93–96
[2018-02-03] MEDS: AZTREONAM INJ 1,000 MG in SODIUM CHLORIDE 0.9% INJ 100 ML IV SCH (02:22)
[2018-02-03] MEDS: VANCOMYCIN INJ 1,500 MG in SODIUM CHLORID 0.9% 500 ML INJ 500 ML IV SCH ×2 (05:37→07:10)
[2018-02-03] MEDS: ACETAMINOPHEN/HYDROcodone 325 MG/10 MG TAB PO PRN ×2 (06:36→16:53)
--- NOTE | 2018-02-03 07:32 | RADRPT ---
EXAM DATE/TIME: 02/03/2018 06:42 [facility] COMPARISON: CHEST SINGLE AP, January 30, 2018, 4:15. INDICATIONS : Short of breath, evaluate infiltrate MEDICAL HISTORY : Chronic obstructive pulmonary disease. CA cervix SURGICAL HISTORY : infusport ENCOUNTER: Subsequent ACUITY: 2 days PAIN SCORE: 0/10 LOCATION: Bilateral chest FINDINGS: Discoid atelectasis is noted within the left lung base. The heart is stable. The pulmonary vascular p attern is normal. CONCLUSION: Left basilar discoid atelectasis. Jah Hicks MD on February 03, 2018 at 7:30 Board Certified Radiologist. This report was verified electronically.
[2018-02-03 07:50] LABS: BICARBONATE 23.5 MEQ/L (21.0-32.0); CALCIUM 8.7 MG/DL (8.5-10.1); CREATININE 0.98 MG/DL (0.50-1.00); MAGNESIUM 1.8 MG/DL (1.5-2.5); PHOSPHORUS 2.5 MG/DL (2.5-4.9)
[2018-02-03] MEDS: RESP: ALBUTEROL 2.5 MG/IPRATROPIUM 0.5 MG NEB (SCH) NEB ×4 (08:00→19:29)
[2018-02-03] MEDS: SODIUM CHLORIDE 0.9% FLUSH 10 ML FLUSH IV FLUSH SCH ×2 (09:00→21:37)
[2018-02-03] MEDS: NAPROXEN 500 MG TAB PO SCH (09:10)
[2018-02-03] MEDS: amLODIPine BESYLATE 5 MG TAB PO SCH (09:11)
[2018-02-03] MEDS: LISINOPRIL 10 MG TAB PO SCH (09:12)
[2018-02-03] MEDS: OXYBUTYNIN CHLORIDE 5 MG TAB PO SCH ×2 (09:12→21:37)
[2018-02-03] MEDS: ESCITALOPRAM OXALATE 20 MG TAB PO SCH (09:12)
[2018-02-03] MEDS: PANTOPRAZOLE SOD 40 MG DELAYED RELEASE TAB PO SCH (09:12)
[2018-02-03] MEDS: DOCUSATE SODIUM 50 MG/SENNA 8.6 MG TAB PO SCH ×2 (09:12→21:37)
[2018-02-03] MEDS: METOCLOPRAMIDE HCL 10 MG TAB PO SCH ×4 (09:12→21:38)
[2018-02-03] MEDS: TIOTROPIUM BROMIDE 18 MCG INH INH SCH (09:22)
--- NOTE | 2018-02-03 11:29 | HHI.PR ---
Subjective Remarks Pt complained of a headache this morning otherwise no new complaints Denies any fevers or chills Objective Vitals Vital Signs Date Time Temp Pulse Resp B/P (MAP) Pulse Ox O2 Delivery O2 Flow Rate FiO2 02/03/18 08:00 98.1 66 18 129/70 (89) 96 02/03/18 04:00 97.6 72 18 142/70 (94) 96 02/03/18 00:00 98.0 78 18 136/64 (88) 93 02/02/18 23:14 18 02/02/18 20:23 96 02/02/18 20:00 99.4 85 19 110/59 (76) 93 02/02/18 15:48 96.8 69 20 133/67 (89) 97 02/02/18 11:46 97.7 94 20 156/82 (106) 92 Result Diagram: 01/31/18 0615 02/03/18 0706 Other Results Laboratory Tests Test 02/02/18 04:39 02/02/18 12:45 02/03/18 07:06 Blood Urea Nitrogen 11 MG/DL 11 MG/DL Creatinine 0.80 MG/DL 0.98 MG/DL Random Glucose 101 MG/DL 103 MG/DL Calcium Level 8.3 MG/DL 8.7 MG/DL Sodium Level 137 MEQ/L 138 MEQ/L Potassium Level 2.8 MEQ/L 3.3 MEQ/L 3.9 MEQ/L Chloride Level 102 MEQ/L 107 MEQ/L Carbon Dioxide Level 24.3 MEQ/L 23.5 MEQ/L Anion Gap 11 MEQ/L 8 MEQ/L Estimat Glomerular Filtration Rate 72 ML/MIN 57 ML/MIN Vancomycin Level Trough 17.5 MCG/ML Phosphorus Level 2.5 MG/DL Magnesium Level 1.8 MG/DL Lipase 129 U/L Imaging Last Impressions Chest X-Ray 01/30/18 0356 Signed Impressions: Service Date/Time: Tuesday, January 30, 2018 04:15 - CONCLUSION: No acute findings. Stable linear atelectasis or scarring in the left lower lobe. Mike Mayorga MD Head CT 01/30/18 0000 Signed Impressions: Service Date/Time: Tuesday, January 30, 2018 05:29 - CONCLUSION: Negative noncontrast CT brain. Mike Mayorga MD Objective Remarks General: NAD, AAOx3 Chest: CTA Cardiac: Regular Abd: +BS, soft ND/NT Ext: No edema A/P Problem List: (1) Intravenous catheter sepsis ICD Codes: T82.7XXA - Infection and inflammatory reaction due to other cardiac and vascular devices, implants and grafts, initial encounter; A41.9 - Sepsis, unspecified organism Status: Acute Plan: IV Catheter line sepsis, acute - Pt is a 67 y/o female with hypertension, COPD, depression/anxiety, GERD, osteoarthritis, hyperlipidemia, pancreatitis and uterine carcinoma. - Patient follows with [facility] oncology, Dr. Pam Palomo. Patient completed 6 rounds of Taxol and carboplatin chemotherapy about 6 weeks ago. - She presented with complaints of fever, confusion and some shortness of breath x 3 days. Patient still has her port in place on the right side of her chest. As per her patient has also been complaining of some pain at the site of the port. T-max at home has been 102.5. In the emergency room upon arrival temperature was 101.5. - At admission she was noted to have dehydration and hyponatremia which improved with IVF - Pt found to have staph aureus line sepsis - Blood cultures (01/30/18) with 4/4 growing Staph aureus - Port was removed on 01/31 - 2D echo on 02/01 with mildly dilated LV, estimated EF 55-60%, trace to mild mitral valve regurg, aortic valve sclerosis, no vegetation noted. - Surveillance blood cx's on 02/01 and 02/02 with Gram positive cocci in the aerobic culture - Cont broad abx (Vancomycin and Azactam) and repeat cultures - Once blood cultures start clearing then decide when picc to be placed and length of abx rx with ID - PT daily - Pain control PRN - DVT prophylaxis with Lovenox UTI, acute - She was also noted to have a UTI with culture growing Citrobacter - Levaquin added on 02/03 HTN, chronic, stable - Pt resumed on home meds, Lisinopril 10mg daily, Norvasc 2.5mg po daily - Clonidine PRN GERD, chronic - PPI and Reglan 10mg ACHS - Antiemetics PRN COPD, chronic, stable - Home meds continued - Duonebs Musculoskeletal Chest Pain, acute, improved - Pt received Naprosyn with some improvement Chronic anemia - Labs slightly worse on 01/31 with Hgb 8.3/Hct 23.9 - No active bleeding. - Recheck labs in AM (2) Fever ICD Codes: R50.9 - Fever, unspecified Status: Acute (3) UTI (urinary tract infection) ICD Codes: N39.0 - Urinary tract infection, site not specified Status: Acute (4) Confusion ICD Codes: R41.0 - Disorientation, unspecified Status: Acute (5) Bandemia ICD Codes: D72.825 - Bandemia Status: Acute (6) Hyponatremia ICD Codes: E87.1 - Hypo-osmolality and hyponatremia Status: Resolved Assessment and Plan Patient examined. Assessment and plan formulated with Shauna Botello PA-C. I agree with the above. MSSA bacteremia. port removed. still positive cx's spoke with dr Carroll. change vanco to cefazolin if persists then plan for AVERY. dc azactam. po abx for uti. Problem Qualifiers (1) Fever: Qualified Codes: R50.9 - Fever, unspecified Shauna Botello Feb 03, 2018 11:29 Raffi Santillan MD Feb 03, 2018 15:03
[2018-02-03] MEDS: LEVOFLOXACIN 250 MG TAB PO SCH (14:06)
[2018-02-03] MEDS: ENOXAPARIN SODIUM 40 MG/0.4 ML SYRINGE SQ SCH (14:06)
--- NOTE | 2018-02-03 16:37 | HHI.IDPN ---
Subjective Subjective Remarks ID X cover for Dr Mirandabrittny 67 F with uterimne ca, PORT, chemo and MSSA sepsis Sp PORT removal 01/31 cont to have + blood clx thru 02/02 no fever on vanoc 12/16 self reported PCN allergy Reports uneventfully taking Keflex Antibiotics vanco Allergies: Coded Allergies: penicillin G (Unverified Allergy, Severe, UNKNOWN, 06/28/17) propoxyphene (Unverified Allergy, Severe, HEADACHE AND NAUSEA, 06/28/17) Objective . Vital Signs Date Time Temp Pulse Resp B/P (MAP) Pulse Ox O2 Delivery O2 Flow Rate FiO2 02/03/18 16:00 98.2 94 18 125/81 (96) 95 02/03/18 15:18 95 21 02/03/18 12:00 97.8 72 18 122/70 (87) 96 02/03/18 08:00 98.1 66 18 129/70 (89) 96 02/03/18 04:00 97.6 72 18 142/70 (94) 96 02/03/18 00:00 98.0 78 18 136/64 (88) 93 02/02/18 23:14 18 02/02/18 20:23 96 02/02/18 20:00 99.4 85 19 110/59 (76) 93 . Laboratory Tests Test 02/02/18 04:39 02/02/18 12:45 02/03/18 07:06 Blood Urea Nitrogen 11 MG/DL 11 MG/DL Creatinine 0.80 MG/DL 0.98 MG/DL Random Glucose 101 MG/DL 103 MG/DL Calcium Level 8.3 MG/DL 8.7 MG/DL Sodium Level 137 MEQ/L 138 MEQ/L Potassium Level 2.8 MEQ/L 3.3 MEQ/L 3.9 MEQ/L Chloride Level 102 MEQ/L 107 MEQ/L Carbon Dioxide Level 24.3 MEQ/L 23.5 MEQ/L Anion Gap 11 MEQ/L 8 MEQ/L Estimat Glomerular Filtration Rate 72 ML/MIN 57 ML/MIN Phosphorus Level 2.5 MG/DL Magnesium Level 1.8 MG/DL Lipase 129 U/L Microbiology Date/Time Source Procedure Growth Status 02/02/18 04:38 Blood Peripheral Aerobic Blood Culture - Preliminary Gram Positive Cocci Resulted 02/02/18 04:38 Blood Peripheral Anaerobic Blood Culture - Preliminary NO GROWTH IN 1 DAY Resulted 02/01/18 14:55 Blood Peripheral Aerobic Blood Culture - Final Staphylococcus Aureus Resulted 02/01/18 14:55 Blood Peripheral Anaerobic Blood Culture - Preliminary NO GROWTH IN 2 DAYS Resulted Imaging Last Impressions Chest X-Ray 02/03/18 0600 Signed Impressions: Service Date/Time: Saturday, February 03, 2018 06:42 - CONCLUSION: Left basilar discoid atelectasis. Jah Hicks MD Port Line Revision 01/31/18 0000 Signed Impressions: Service Date/Time: Wednesday, January 31, 2018 00:00 - CONCLUSION: Uncomplicated port removal as above. Geraldo Segal MD Head CT 01/30/18 0000 Signed Impressions: Service Date/Time: Tuesday, January 30, 2018 05:29 - CONCLUSION: Negative noncontrast CT brain. Mike Mayorga MD Physical Exam GENERAL: Patient is a well-nourished, well-developed female, slightly lethargic, but does respond to my questioning, not in respiratory distress. SKIN: Warm and dry. No generalized rash, no ecchymoses and no evidence of embolic lesions. HEAD: Atraumatic. Normocephalic. No temporal wasting, or tenderness. EYES: Pale conjunctiva. No petechia or hemorrhage. Pupils equal, round and reactive to light. Extraocular movements full and intact. No scleral icterus. No injection or drainage. EARS, NOSE AND THROAT: Nose without bleeding or purulent nasal discharge. No sinus tenderness. Mucous membranes pink and moist. No oral lesions noted. No exudate. No oral thrush. CARDIOVASCULAR: Regular rate and rhythm. No murmurs, rubs or gallops heard. Dry intact dressing over her previous port site RESPIRATORY: Clear to auscultation. Breath sounds equal bilaterally. No rales , wheezing or rhonchi ABDOMEN: Soft, non-tender, nondistended. Bowel sounds present and normoactive. No guarding. No rebound. No organomegaly. EXTREMITIES: No clubbing, cyanosis, or edema. NEUROLOGICAL: Awake and alert. Cranial nerves grossly intact. Motor grossly within normal limits. PSYCHIATRIC: Normal affect, calm and cooperative. Assessment & Plan Remarks IMPRESSION Staph aureus sepsis, likely due to port infection - port removed, but could not find any C/S -cont to have + blood clx -2 D echo neg Pyuria, no symptoms Known uterine CA, S/P chemo COPD Allergies to penicillin, but she has tolerated cephalosporins RECOMMENDATION Repeat blood cultures to document clearing f/u blood cultures untill sterility documented change vanco to ancef AVERY if cont to have + blood clx I will follow along with you storm pt, @ b/s storm Santillan @ b/s Hannah Carroll MD Feb 03, 2018 16:37
[2018-02-03] MEDS ORDERED: ceFAZolin 2 GM PREMIX 50 ML IV SCH (16:45)
[2018-02-03] MEDS: CEFAZOLIN INJ 2,000 MG in SODIUM CHLORIDE 0.9% INJ 100 ML IV SCH (19:05)
[2018-02-03] MEDS: ATORVASTATIN 40 MG TAB PO SCH (21:37)
[2018-02-04] VITALS (7 sets, daily range): BP systolic 133–183; BP diastolic 68–96; PULSE 78–90; RESP 14–16; TEMP 97.7–98.6; O2SAT 94–97
[2018-02-04] MEDS: CEFAZOLIN INJ 2,000 MG in SODIUM CHLORIDE 0.9% INJ 100 ML IV SCH ×3 (02:58→18:30)
[2018-02-04 07:56] LABS: AUTOMATED NEUTROPHIL # 4.1 TH/MM3 (1.8-7.7); BASOPHIL % 0.6 % (0.0-2.0); EOSINOPHIL # 0.3 TH/MM3 (0-0.4); EOSINOPHIL % 4.6 % (0.0-4.0); HEMATOCRIT 23.8 % (35.0-46.0); HEMOGLOBIN 8.3 GM/DL (11.6-15.3); LYMPH % 19.1 % (9.0-44.0); LYMPHOCYTE # 1.2 TH/MM3 (1.0-4.8); MEAN CELL VOLUME 102.6 FL (80.0-100.0); MEAN CORPUSCULAR HEMOGLOBIN 35.7 PG (27.0-34.0); MEAN CORPUSCULAR HGB CONC 34.8 % (32.0-36.0); MEAN PLATELET VOLUME 8.2 FL (7.0-11.0); MONO % 11.8 % (0.0-8.0); MONOCYTE # 0.8 TH/MM3 (0-0.9); NEUT % 63.9 % (16.0-70.0); PLATELET COUNT 187 TH/MM3 (150-450); RED BLOOD COUNT 2.32 MIL/MM3 (4.00-5.30); RED CELL DISTRIBUTION WIDTH 14.2 % (11.6-17.2); WHITE BLOOD COUNT 6.4 TH/MM3 (4.0-11.0)
[2018-02-04] MEDS: LISINOPRIL 10 MG TAB PO SCH (07:56)
[2018-02-04] MEDS: amLODIPine BESYLATE 5 MG TAB PO SCH (07:56)
[2018-02-04] MEDS: OXYBUTYNIN CHLORIDE 5 MG TAB PO SCH ×2 (07:56→21:33)
[2018-02-04] MEDS: PANTOPRAZOLE SOD 40 MG DELAYED RELEASE TAB PO SCH (07:56)
[2018-02-04] MEDS: SODIUM CHLORIDE 0.9% FLUSH 10 ML FLUSH IV FLUSH SCH ×2 (07:57→21:37)
[2018-02-04] MEDS: METOCLOPRAMIDE HCL 10 MG TAB PO SCH ×4 (07:57→21:34)
[2018-02-04] MEDS: ESCITALOPRAM OXALATE 20 MG TAB PO SCH (07:57)
[2018-02-04] MEDS: TIOTROPIUM BROMIDE 18 MCG INH INH SCH (07:58)
[2018-02-04] MEDS: DOCUSATE SODIUM 50 MG/SENNA 8.6 MG TAB PO SCH ×2 (07:58→21:00)
[2018-02-04] MEDS: ACETAMINOPHEN/HYDROcodone 325 MG/10 MG TAB PO PRN ×3 (07:59→21:40)
[2018-02-04 08:19] LABS: BICARBONATE 23.4 MEQ/L (21.0-32.0); CALCIUM 8.4 MG/DL (8.5-10.1); CREATININE 0.85 MG/DL (0.50-1.00); MAGNESIUM 1.7 MG/DL (1.5-2.5)
[2018-02-04] MEDS: RESP: ALBUTEROL 2.5 MG/IPRATROPIUM 0.5 MG NEB (SCH) NEB ×4 (08:41→20:16)
--- NOTE | 2018-02-04 10:16 | HHI.PR ---
Subjective Remarks on edge bed no new complaints Objective Vitals heart reg lung cta abd s/nt ext no edema right chest old port site nontender. no drainage. Vital Signs Date Time Temp Pulse Resp B/P (MAP) Pulse Ox O2 Delivery O2 Flow Rate FiO2 02/04/18 08:00 98.6 90 16 183/96 (125) 96 02/04/18 05:03 98.2 78 14 144/70 (94) 95 02/04/18 00:21 97.7 82 16 148/78 (101) 97 02/03/18 20:13 98.4 80 18 138/69 (92) 96 02/03/18 16:00 98.2 94 18 125/81 (96) 95 02/03/18 15:18 95 21 02/03/18 12:00 97.8 72 18 122/70 (87) 96 Result Diagram: 02/04/18 0649 02/04/18 0649 Imaging Last Impressions Chest X-Ray 01/30/18 0356 Signed Impressions: Service Date/Time: Tuesday, January 30, 2018 04:15 - CONCLUSION: No acute findings. Stable linear atelectasis or scarring in the left lower lobe. Mike Mayorga MD Head CT 01/30/18 0000 Signed Impressions: Service Date/Time: Tuesday, January 30, 2018 05:29 - CONCLUSION: Negative noncontrast CT brain. Mike Mayorga MD A/P Problem List: (1) Intravenous catheter sepsis ICD Codes: T82.7XXA - Infection and inflammatory reaction due to other cardiac and vascular devices, implants and grafts, initial encounter; A41.9 - Sepsis, unspecified organism Status: Acute Plan: IV Catheter line sepsis, acute - Pt is a 67 y/o female with hypertension, COPD, depression/anxiety, GERD, osteoarthritis, hyperlipidemia, pancreatitis and uterine carcinoma. - Patient follows with [facility] oncology, Dr. Pam Palomo. Patient completed 6 rounds of Taxol and carboplatin chemotherapy about 6 weeks ago. - She presented with complaints of fever, confusion and some shortness of breath x 3 days. Patient still has her port in place on the right side of her chest. As per her patient has also been complaining of some pain at the site of the port. T-max at home has been 102.5. In the emergency room upon arrival temperature was 101.5. - At admission she was noted to have dehydration and hyponatremia which improved with IVF - Pt found to have staph aureus line sepsis blood cx . peripheral / mssa on 01/30 blood cx...port 12/16 01/30 mssa repeat blood cx's on 02/01 and 02/02 still mssa - - Port was removed on 01/31 - 2D echo on 02/01 with mildly dilated LV, estimated EF 55-60%, trace to mild mitral valve regurg, aortic valve sclerosis, no vegetation noted. - Surveillance blood cx's on 02/01 and 02/02 with Gram positive cocci in the aerobic culture - Once blood cultures start clearing then decide when picc to be placed and length of abx rx with ID - vancomycin changed to cefazolin on 02/03 - repeat survellience cx's. if neg then plan for picc. if still positive consider AVERY - PT daily - Pain control PRN - DVT prophylaxis with Lovenox UTI, acute - She was also noted to have a UTI with culture growing Citrobacter - Levaquin added on 02/03 HTN, chronic, stable - Pt resumed on home meds, Lisinopril 10mg daily, Norvasc 2.5mg po daily - Clonidine PRN GERD, chronic - PPI and Reglan 10mg ACHS - Antiemetics PRN COPD, chronic, stable - Home meds continued - Duonebs Musculoskeletal Chest Pain, acute, improved - Pt received Naprosyn with some improvement Chronic anemia - No active bleeding. (2) Fever ICD Codes: R50.9 - Fever, unspecified Status: Acute (3) UTI (urinary tract infection) ICD Codes: N39.0 - Urinary tract infection, site not specified Status: Acute (4) Confusion ICD Codes: R41.0 - Disorientation, unspecified Status: Acute (5) Bandemia ICD Codes: D72.825 - Bandemia Status: Acute (6) Hyponatremia ICD Codes: E87.1 - Hypo-osmolality and hyponatremia Status: Resolved Problem Qualifiers (1) Fever: Qualified Codes: R50.9 - Fever, unspecified Raffi Santillan MD Feb 04, 2018 10:16
[2018-02-04] MEDS: LEVOFLOXACIN 250 MG TAB PO SCH (12:52)
[2018-02-04] MEDS: ENOXAPARIN SODIUM 40 MG/0.4 ML SYRINGE SQ SCH (12:52)
[2018-02-04] MEDS ORDERED: PHARMACY ORDERED LAB ONE (17:45)
[2018-02-04] MEDS: ATORVASTATIN 40 MG TAB PO SCH (21:34)
[2018-02-05] VITALS (7 sets, daily range): BP systolic 130–181; BP diastolic 73–84; PULSE 85–98; RESP 16–18; TEMP 98–98.7; O2SAT 95–96
[2018-02-05] MEDS: CEFAZOLIN INJ 2,000 MG in SODIUM CHLORIDE 0.9% INJ 100 ML IV SCH ×3 (03:24→18:03)
[2018-02-05] MEDS: ACETAMINOPHEN/HYDROcodone 325 MG/10 MG TAB PO PRN (04:45)
[2018-02-05] MEDS: RESP: ALBUTEROL 2.5 MG/IPRATROPIUM 0.5 MG NEB (SCH) NEB ×3 (07:33→15:41)
[2018-02-05] MEDS: ESCITALOPRAM OXALATE 20 MG TAB PO SCH (07:36)
[2018-02-05] MEDS: OXYBUTYNIN CHLORIDE 5 MG TAB PO SCH ×2 (07:37→21:10)
[2018-02-05] MEDS: DOCUSATE SODIUM 50 MG/SENNA 8.6 MG TAB PO SCH ×2 (07:37→21:13)
[2018-02-05] MEDS: PANTOPRAZOLE SOD 40 MG DELAYED RELEASE TAB PO SCH (07:37)
[2018-02-05] MEDS: LISINOPRIL 10 MG TAB PO SCH (07:38)
[2018-02-05] MEDS: amLODIPine BESYLATE 5 MG TAB PO SCH (07:38)
[2018-02-05] MEDS: METOCLOPRAMIDE HCL 10 MG TAB PO SCH ×4 (07:38→21:10)
[2018-02-05] MEDS: TIOTROPIUM BROMIDE 18 MCG INH INH SCH (07:39)
[2018-02-05] MEDS: SODIUM CHLORIDE 0.9% FLUSH 10 ML FLUSH IV FLUSH SCH ×2 (07:39→21:12)
--- NOTE | 2018-02-05 11:37 | HHI.PR ---
Subjective Remarks no complaints on edge bed. Objective Vitals heart reg lung cta abd s/nt ext no edema Vital Signs Date Time Temp Pulse Resp B/P (MAP) Pulse Ox O2 Delivery O2 Flow Rate FiO2 02/05/18 08:00 98.0 98 16 130/76 (94) 95 02/05/18 07:34 96 21 02/05/18 04:00 98.0 85 18 166/80 (108) 96 02/05/18 00:00 98.5 93 16 154/73 (100) 95 02/04/18 20:00 97.9 89 16 133/73 (93) 94 02/04/18 16:00 97.8 87 16 135/73 (93) 96 02/04/18 12:00 98.5 80 16 135/68 (90) 96 Result Diagram: 02/04/18 0649 02/04/18 0649 Imaging Last Impressions Chest X-Ray 01/30/18 0356 Signed Impressions: Service Date/Time: Tuesday, January 30, 2018 04:15 - CONCLUSION: No acute findings. Stable linear atelectasis or scarring in the left lower lobe. Mike Mayorga MD Head CT 01/30/18 0000 Signed Impressions: Service Date/Time: Tuesday, January 30, 2018 05:29 - CONCLUSION: Negative noncontrast CT brain. Mike Mayorga MD A/P Problem List: (1) Intravenous catheter sepsis ICD Codes: T82.7XXA - Infection and inflammatory reaction due to other cardiac and vascular devices, implants and grafts, initial encounter; A41.9 - Sepsis, unspecified organism Status: Acute Plan: IV Catheter line sepsis, acute - Pt is a 67 y/o female with hypertension, COPD, depression/anxiety, GERD, osteoarthritis, hyperlipidemia, pancreatitis and uterine carcinoma. - Patient follows with [facility] oncology, Dr. Pam Palomo. Patient completed 6 rounds of Taxol and carboplatin chemotherapy about 6 weeks ago. - She presented with complaints of fever, confusion and some shortness of breath x 3 days. Patient still has her port in place on the right side of her chest. As per her patient has also been complaining of some pain at the site of the port. T-max at home has been 102.5. In the emergency room upon arrival temperature was 101.5. - At admission she was noted to have dehydration and hyponatremia which improved with IVF - Pt found to have staph aureus line sepsis blood cx . peripheral 02/15 mssa on 01/30 blood cx...port 12/16 01/30 mssa repeat blood cx's on 02/01 and 02/02 still mssa - - Port was removed on 01/31 - 2D echo on 02/01 with mildly dilated LV, estimated EF 55-60%, trace to mild mitral valve regurg, aortic valve sclerosis, no vegetation noted. - Surveillance blood cx's on 02/01 and 02/02 with Gram positive cocci in the aerobic culture - vancomycin changed to cefazolin on 02/03 - repeat survellience cx's. 02/03 blood cx ngtd x 48hrs. Once negative for 72hrs plan for picc and arrange [facility] for cefazolin. check with ID for length of rx but I suspect for at least 1month . If pos cx then desirae. - PT daily - Pain control PRN - DVT prophylaxis with Lovenox UTI, acute - She was also noted to have a UTI with culture growing Citrobacter - Levaquin added on 02/03 HTN, chronic, stable - Pt resumed on home meds, Lisinopril 10mg daily, Norvasc 2.5mg po daily - Clonidine PRN GERD, chronic - PPI and Reglan 10mg ACHS - Antiemetics PRN COPD, chronic, stable - Home meds continued - Duonebs Musculoskeletal Chest Pain, acute, improved - Pt received Naprosyn with some improvement Chronic anemia - No active bleeding. (2) Fever ICD Codes: R50.9 - Fever, unspecified Status: Acute (3) UTI (urinary tract infection) ICD Codes: N39.0 - Urinary tract infection, site not specified Status: Acute (4) Confusion ICD Codes: R41.0 - Disorientation, unspecified Status: Acute (5) Bandemia ICD Codes: D72.825 - Bandemia Status: Acute (6) Hyponatremia ICD Codes: E87.1 - Hypo-osmolality and hyponatremia Status: Resolved Problem Qualifiers (1) Fever: Qualified Codes: R50.9 - Fever, unspecified Raffi Santillan MD Feb 05, 2018 11:37
[2018-02-05] MEDS: ENOXAPARIN SODIUM 40 MG/0.4 ML SYRINGE SQ SCH (12:15)
[2018-02-05] MEDS: LEVOFLOXACIN 250 MG TAB PO SCH (12:15)
[2018-02-05] MEDS: ATORVASTATIN 40 MG TAB PO SCH (21:10)
[2018-02-06] VITALS: BP 175/81; PULSE 98; RESP 18; TEMP 99.3; O2SAT 97
[2018-02-06] MEDS: CEFAZOLIN INJ 2,000 MG in SODIUM CHLORIDE 0.9% INJ 100 ML IV SCH ×3 (01:55→17:40)
[2018-02-06] MEDS: ACETAMINOPHEN/HYDROcodone 325 MG/10 MG TAB PO PRN ×3 (02:00→23:03)
[2018-02-06 04:00] VITALS: BP 174/81; PULSE 81; RESP 16; TEMP 98.2; O2SAT 94
[2018-02-06] MEDS: LISINOPRIL 10 MG TAB PO SCH (08:43)
[2018-02-06] MEDS: OXYBUTYNIN CHLORIDE 5 MG TAB PO SCH ×2 (08:43→21:32)
[2018-02-06] MEDS: amLODIPine BESYLATE 5 MG TAB PO SCH (08:44)
[2018-02-06] MEDS: DOCUSATE SODIUM 50 MG/SENNA 8.6 MG TAB PO SCH ×2 (08:44→21:32)
[2018-02-06] MEDS: PANTOPRAZOLE SOD 40 MG DELAYED RELEASE TAB PO SCH (08:44)
[2018-02-06] MEDS: METOCLOPRAMIDE HCL 10 MG TAB PO SCH ×4 (08:44→21:33)
[2018-02-06] MEDS: ESCITALOPRAM OXALATE 20 MG TAB PO SCH (08:44)
[2018-02-06] MEDS: SODIUM CHLORIDE 0.9% FLUSH 10 ML FLUSH IV FLUSH SCH ×2 (08:45→21:33)
[2018-02-06] MEDS: TIOTROPIUM BROMIDE 18 MCG INH INH SCH (08:45)
[2018-02-06 09:02] VITALS: BP 178/85; PULSE 81; RESP 16; TEMP 98; O2SAT 96
--- NOTE | 2018-02-06 09:58 | HHI.IDPN ---
Subjective Subjective Remarks 67 F with Uterine ca, PORT, chemo and MSSA sepsis Sp PORT removal 01/31 Tmax 99.3 cont to have + blood clx thru 02/02 Repeat BCX 02/03 shows no growth x 2 days on Vanco 12/16 self reported PCN allergy Reports uneventfully taking Keflex Patient states she feels well today. Denies any fever or chills. Denies any nausea, vomiting or abdominal pain. Denies any dysuria. Reports normal BM. Antibiotics Vanco - D/C 02/03 Azactam - D/C 02/03 Cefazolin Levaquin Lines PIV, no evidence of infection Past Medical History Uterine carcinoma, completed 6 cycles of chemotherapy, finished Dec 06 COPD Colitis HTN Hx of pancreatitis (Emilia Martinez) Allergies: Coded Allergies: penicillin G (Unverified Allergy, Severe, UNKNOWN, 06/28/17) propoxyphene (Unverified Allergy, Severe, HEADACHE AND NAUSEA, 06/28/17) Objective . Vital Signs Date Time Temp Pulse Resp B/P (MAP) Pulse Ox O2 Delivery O2 Flow Rate FiO2 02/06/18 09:02 98.0 81 16 178/85 (116) 96 02/06/18 04:00 98.2 81 16 174/81 (112) 94 02/06/18 00:00 99.3 98 18 175/81 (112) 97 02/05/18 20:00 98.7 96 18 181/84 (116) 96 02/05/18 16:00 98.0 90 16 165/79 (107) 96 02/05/18 12:00 98.1 91 16 164/75 (104) 96 . Microbiology Date/Time Source Procedure Growth Status 02/03/18 19:41 Blood Peripheral Aerobic Blood Culture - Preliminary NO GROWTH IN 2 DAYS Resulted 02/03/18 19:41 Blood Peripheral Anaerobic Blood Culture - Preliminary NO GROWTH IN 2 DAYS Resulted Imaging Last Impressions Chest X-Ray 02/03/18 0600 Signed Impressions: Service Date/Time: Saturday, February 03, 2018 06:42 - CONCLUSION: Left basilar discoid atelectasis. Jah Hicks MD Port Line Revision 01/31/18 0000 Signed Impressions: Service Date/Time: Wednesday, January 31, 2018 00:00 - CONCLUSION: Uncomplicated port removal as above. Geraldo Segal MD Head CT 01/30/18 0000 Signed Impressions: Service Date/Time: Tuesday, January 30, 2018 05:29 - CONCLUSION: Negative noncontrast CT brain. Mike Mayorga MD Physical Exam GENERAL: Patient is a well-nourished, well-developed female, awake and alert. INAD. is at the bedside. SKIN: Warm and dry. No generalized rash, no ecchymoses and no evidence of embolic lesions. HEAD: Atraumatic. Normocephalic. No temporal wasting, or tenderness. EYES: Pupils equal, round and reactive to light. Extraocular movements full and intact. No scleral icterus. No injection or drainage. EARS, NOSE AND THROAT: Nose without bleeding or purulent nasal discharge. No sinus tenderness. Mucous membranes pink and moist. No oral lesions noted. No exudate. No oral thrush. CARDIOVASCULAR: Regular rate and rhythm. No murmurs, rubs or gallops heard. Dry intact dressing over her previous port site, nontender to palpation, no erythema appreciated. RESPIRATORY: Clear to auscultation. Breath sounds equal bilaterally. No rales , wheezing or rhonchi ABDOMEN: Soft, non-tender, nondistended. Bowel sounds present and normoactive. EXTREMITIES: No clubbing, cyanosis, or edema. NEUROLOGICAL: Awake and alert. Cranial nerves grossly intact. Motor grossly within normal limits. No focal neurologic findings appreciated. PSYCHIATRIC: Normal affect, calm and cooperative. (Emilia Martinez) Assessment & Plan Remarks IMPRESSION Staph aureus sepsis, likely due to port infection - port removed 01/31, but could not find any C/S - cont to have + blood clx 02/01 and 02/02. Repeat Cx 02/03 no growth x 3 days - 2 D echo neg - afebrile, WBC WNL 02/04 Pyuria/UTI Citrobacter, asymptomatic - started on Levaquin 02/03 by primary team Known uterine CA, S/P chemo COPD Allergies to penicillin, but she has tolerated cephalosporins RECOMMENDATION Continue on Cefazolin Continue to monitor clinically Plan on PICC line placement tomorrow pending results of further workup Recommend Cardiology consultation for AVERY Recommend Carotid doppler studies to r/o septic thrombophlebitis Discussed with patient and Discussed with Dr. Santillan who discussed with Dr. Morgan (Emilia Martinez) Remarks The exam, history, and the medical decision-making described in the above note were completed with the assistance of the mid-level provider. I reviewed the historical facts with patient again, along with pertinent ROS and performed an independent physical examination. I agree with the findings presented. I attest that I had a [id number] encounter with the patient on the same day, and personally performed and documented my assessment/plan and findings in the medical record. Overnight events reviewed No fever No rash Clinical exam: port site with no e.o infection No murmur. Discussed with patient and spouse that given blood cx was positive after Port removal will need AVERY and Doppler neck to rule out septic thrombophlebitis. Will help decide between 4 weeks vs 6 weeks of IV Cefazolin Patient and inform me no plans for further chemo at this point so PICC would be ok in am if repeat BCX remain negative to resume care in am (Ale Jacobson MD) Emilia Martinez Feb 06, 2018 09:58 Ale Jacobson MD Feb 06, 2018 21:36
[2018-02-06] MEDS: LEVOFLOXACIN 250 MG TAB PO SCH (11:31)
[2018-02-06] MEDS: ENOXAPARIN SODIUM 40 MG/0.4 ML SYRINGE SQ SCH (11:31)
[2018-02-06 12:00] VITALS: BP 170/80; PULSE 84; RESP 18; TEMP 98.4; O2SAT 97
--- NOTE | 2018-02-06 12:21 | HHI.PR ---
Subjective Remarks No new complaints today Pt tolerating diet Afebrile Objective Vitals Vital Signs Date Time Temp Pulse Resp B/P (MAP) Pulse Ox O2 Delivery O2 Flow Rate FiO2 02/06/18 09:02 98.0 81 16 178/85 (116) 96 02/06/18 04:00 98.2 81 16 174/81 (112) 94 02/06/18 00:00 99.3 98 18 175/81 (112) 97 02/05/18 20:00 98.7 96 18 181/84 (116) 96 02/05/18 16:00 98.0 90 16 165/79 (107) 96 Result Diagram: 02/04/18 0649 02/04/18 0649 Imaging Last Impressions Chest X-Ray 02/03/18 0600 Signed Impressions: Service Date/Time: Saturday, February 03, 2018 06:42 - CONCLUSION: Left basilar discoid atelectasis. Jah Hicks MD Port Line Revision 01/31/18 0000 Signed Impressions: Service Date/Time: Wednesday, January 31, 2018 00:00 - CONCLUSION: Uncomplicated port removal as above. Geraldo Segal MD Head CT 01/30/18 0000 Signed Impressions: Service Date/Time: Tuesday, January 30, 2018 05:29 - CONCLUSION: Negative noncontrast CT brain. Mike Mayorga MD Last Impressions Chest X-Ray 01/30/18 0356 Signed Impressions: Service Date/Time: Tuesday, January 30, 2018 04:15 - CONCLUSION: No acute findings. Stable linear atelectasis or scarring in the left lower lobe. Mike Mayorga MD Head CT 01/30/18 0000 Signed Impressions: Service Date/Time: Tuesday, January 30, 2018 05:29 - CONCLUSION: Negative noncontrast CT brain. Mike Mayorga MD Objective Remarks General: NAD, AAOx3 Chest: CTA Cardiac: Regular Abd: +BS, soft ND/NT Ext: No edema A/P Problem List: (1) Intravenous catheter sepsis ICD Codes: T82.7XXA - Infection and inflammatory reaction due to other cardiac and vascular devices, implants and grafts, initial encounter; A41.9 - Sepsis, unspecified organism Status: Acute Plan: IV Catheter line sepsis, acute - Pt is a 67 y/o female with hypertension, COPD, depression/anxiety, GERD, osteoarthritis, hyperlipidemia, pancreatitis and uterine carcinoma. - Patient follows with [facility] oncology, Dr. Pam Palomo. Patient completed 6 rounds of Taxol and carboplatin chemotherapy about 6 weeks ago. - She presented with complaints of fever, confusion and some shortness of breath x 3 days. Patient still has her port in place on the right side of her chest. As per her patient has also been complaining of some pain at the site of the port. T-max at home has been 102.5. In the emergency room upon arrival temperature was 101.5. - At admission she was noted to have dehydration and hyponatremia which improved with IVF - Pt found to have staph aureus line sepsis - Blood cx, peripheral (01/30) with 4/4 MSSA - Blood cx, drawn from port (01/30) with 2/2 MSSA - Port was removed on 01/31 - Repeat blood cx's on 02/01 and 02/02 still MSSA - Repeat blood cx's on 02/03 with no growth x 3 days - 2D echo (02/01)--> mildly dilated LV, estimated EF 55-60%, trace to mild mitral valve regurg, aortic valve sclerosis, no vegetation noted. - Vancomycin changed to cefazolin on 02/03 - Case discussed with Dr. Jacobson on 02/06 and she is requesting Carotis US to evaluate for septic thromboemboli and Cardiology consultation to evaluated with AVERY - Wait on PICC placement until after AVERY per ID recs - PT daily - Pain control PRN - DVT prophylaxis with Lovenox UTI, acute - She was also noted to have a UTI with culture growing Citrobacter - Levaquin added on 02/03 HTN, chronic, stable - Pt resumed on home meds, Lisinopril 10mg daily, Norvasc 2.5mg po daily - Her BP has still been running high - We will stop the Norvasc and start Procardia 30mg po daily, first dose now - Clonidine PRN GERD, chronic - PPI and Reglan 10mg ACHS - Antiemetics PRN COPD, chronic, stable - Home meds continued - Duonebs Musculoskeletal Chest Pain, acute, improved - Pt received Naprosyn with some improvement Chronic anemia - No active bleeding. (2) Fever ICD Codes: R50.9 - Fever, unspecified Status: Acute (3) UTI (urinary tract infection) ICD Codes: N39.0 - Urinary tract infection, site not specified Status: Acute (4) Confusion ICD Codes: R41.0 - Disorientation, unspecified Status: Acute (5) Bandemia ICD Codes: D72.825 - Bandemia Status: Acute (6) Hyponatremia ICD Codes: E87.1 - Hypo-osmolality and hyponatremia Status: Resolved Assessment and Plan Patient examined. Assessment and plan formulated with Shauna JONES-C. I agree with the above. Case d/w Dr. Jacobson (02/06/18) - obtain b/l carotid US. - obtain AVERY - await PICC until after results of above. Problem Qualifiers (1) Fever: Qualified Codes: R50.9 - Fever, unspecified Shauna Botello Feb 06, 2018 12:21 Sp Morgan DO Feb 07, 2018 00:06
[2018-02-06] MEDS ORDERED: NIFEdipine 30 MG SUSTAINED RELEASE TAB PO ONE (14:00)
[2018-02-06] MEDS ORDERED: SODIUM CHLOR 0.9% 1000 ML INJ 1,000 ML IV SCH (14:00)
--- NOTE | 2018-02-06 15:39 | MB ---
cc: Alexis Quintero MD DATE: 02/06/2018 INDICATION: Sepsis. HISTORY OF PRESENT ILLNESS: This is a 67-year-old female with history of fever, COPD, uterine cancer who had just finished 6 cycles of chemotherapy back on 12/06/2017, came in with some swelling and erythema around her port. Initial presentation was significant for fever. Blood cultures are growing out Staphylococcus aureus. Infectious disease was consulted, who requested transesophageal echocardiogram. PAST MEDICAL HISTORY: Hypertension, COPD, depression, GERD, osteoarthritis, hyperlipidemia, colitis, pancreatitis, uterine carcinoma. ALLERGIES: NO KNOWN DRUG ALLERGIES. FAMILY HISTORY: Denies any family history of early coronary artery disease or sudden cardiac . SOCIAL HISTORY: . Former smoker. Denies any drug use. REVIEW OF SYSTEMS: A 12-point review of systems was performed and negative unless otherwise noted in the history of present illness. PHYSICAL EXAMINATION: VITAL SIGNS: Temp is 98, blood pressure 170/80 mmHg. GENERAL: Alert and oriented x 3, in no acute distress. HEENT: Shows pupils reactive to light and accommodation. Extraocular movements are intact. No elevation of jugular venous distention. No thyromegaly, lymphadenopathy. No carotid bruits. LUNGS: Clear to auscultation bilaterally. CARDIOVASCULAR: Regular without murmurs, rubs, or gallops. ABDOMEN: Nontender, nondistended with good bowel sounds. No hepatosplenomegaly. EXTREMITIES: Show no clubbing, cyanosis, or edema. Good peripheral pulses. NEUROLOGIC: Cranial nerves intact. Motor system grossly intact. LABORATORY DATA: Sodium 138, potassium 3.9, BUN is 12, creatinine 0.85. WBC 6.4, hemoglobin is 8.3, platelet count is 187. ASSESSMENT: 1. Sepsis. 2. Recent administration of chemotherapy. 3. History of uterine cancer. PLAN: Has positive staph in the blood with 4/4 methicillin-susceptible Staphylococcus aureus. Patient will be made n.p.o. after midnight. Transthoracic echocardiogram revealed no significant vegetations, but we will proceed with a transesophageal echocardiogram to rule out vegetation. Alexis Quintero MD LIEN/TI , 03:18 PM , 03:37 PM
[2018-02-06 16:00] VITALS: BP 143/75; PULSE 82; RESP 17; TEMP 98.1; O2SAT 96
[2018-02-06] MEDS ORDERED: SODIUM CHLORID 0.9% 500 ML IV PRN (17:30)
[2018-02-06] MEDS ORDERED: LACTATED RINGER'S 1000 ML IV PRN (17:30)
[2018-02-06] MEDS ORDERED: METOPROLOL TARTRATE 25 MG TAB PO PRN (17:45)
[2018-02-06] MEDS ORDERED: CHLORHEXIDINE GLUCONATE 2 % 1 PACK (2 CLOTHS) TOPICAL PRN (17:45)
[2018-02-06] MEDS ORDERED: POVIDONE IODINE 5% (ANTISEPSIS KIT) 4 APPLICATIONS EACH NARE PRN (17:45)
[2018-02-06] MEDS: ATORVASTATIN 40 MG TAB PO SCH (21:32)
[2018-02-06 23:15] VITALS: BP 169/81; PULSE 82; RESP 18; TEMP 98.8; O2SAT 97
[2018-02-07] MEDS: CEFAZOLIN INJ 2,000 MG in SODIUM CHLORIDE 0.9% INJ 100 ML IV SCH ×3 (01:23→16:29)
[2018-02-07 02:35] VITALS: BP 165/79; PULSE 74; RESP 18; TEMP 97.9; O2SAT 95
[2018-02-07 06:00] VITALS: BP 155/80; PULSE 80; RESP 18; TEMP 97.5; O2SAT 98
[2018-02-07 08:00] VITALS: BP 163/76; PULSE 79; RESP 18; TEMP 98.2; O2SAT 94
[2018-02-07] MEDS: PANTOPRAZOLE SOD 40 MG DELAYED RELEASE TAB PO SCH (08:02)
[2018-02-07] MEDS: DOCUSATE SODIUM 50 MG/SENNA 8.6 MG TAB PO SCH ×2 (08:02→21:22)
[2018-02-07] MEDS: LISINOPRIL 10 MG TAB PO SCH (08:02)
[2018-02-07] MEDS: ESCITALOPRAM OXALATE 20 MG TAB PO SCH (08:02)
[2018-02-07] MEDS: OXYBUTYNIN CHLORIDE 5 MG TAB PO SCH ×2 (08:02→21:22)
[2018-02-07] MEDS: METOCLOPRAMIDE HCL 10 MG TAB PO SCH ×4 (08:02→21:22)
[2018-02-07] MEDS: NIFEdipine 30 MG SUSTAINED RELEASE TAB PO SCH (08:03)
[2018-02-07] MEDS: SODIUM CHLORIDE 0.9% FLUSH 10 ML FLUSH IV FLUSH SCH ×2 (08:03→21:21)
[2018-02-07] MEDS: TIOTROPIUM BROMIDE 18 MCG INH INH SCH (08:05)
--- NOTE | 2018-02-07 08:14 | PD.CARD.PN ---
Subjective Subjective Remarks denies chest pain, sob or palpitations (Odette Hanson) Objective Medications Current Medications Medications (Trade) Dose Ordered Sig/Radha Route Start Time Stop Time Status Last Admin (NS Flush) 2 ml UNSCH PRN IV FLUSH 01/30/18 09:15 (NS Flush) 2 ml BID IV FLUSH 01/30/18 21:00 02/06/18 21:33 (Tylenol) 650 mg Q4H PRN PO 01/30/18 09:15 02/01/18 22:24 (Narcan Inj) 0.4 mg UNSCH PRN IV PUSH 01/30/18 09:15 (Carmen-Colace) 1 tab BID PO 01/30/18 21:00 02/07/18 08:02 (Milk Of Magnesia Liq) 30 ml Q12H PRN PO 01/30/18 09:15 02/01/18 13:15 (Proair Hfa Inh) 2 puff Q6H PRN INH 01/31/18 14:00 (Xanax) 0.25 mg BID PRN PO 01/31/18 14:00 02/01/18 13:09 (Lipitor) 40 mg HS PO 01/31/18 21:00 02/06/18 21:32 (Lexapro) 20 mg DAILY PO 01/31/18 15:00 02/07/18 08:02 (Prinivil) 10 mg DAILY PO 02/01/18 09:00 02/07/18 08:02 (Ditropan) 5 mg Q12HR PO 01/31/18 21:00 02/07/18 08:02 Patient Own Medication PT OWN MED: (Budeson... DAILY PO 02/01/18 09:00 Future Hold Patient Own Medication PT OWN MED: (Umeclidinium [place] ... DAILY INH 02/01/18 09:00 Future Hold (Zofran Inj) 4 mg Q4H PRN IVP 02/01/18 10:45 02/02/18 07:09 (Lovenox Inj) 40 mg Q24H SQ 02/01/18 12:00 02/06/18 11:31 (Spiriva Inh) 18 mcg DAILY INH 02/02/18 09:00 02/07/18 08:05 (Mag-Al Plus Susp Liq) 15 ml Q6H PRN PO 02/01/18 19:15 (Catapres) 0.1 mg Q6H PRN PO 02/02/18 11:30 (Reglan) 10 mg ACHS PO 02/02/18 12:00 02/07/18 08:02 (Protonix) 40 mg DAILY PO 02/03/18 09:00 02/07/18 08:02 ([place] 10-325 Mg) 1 tab Q4H PRN PO 02/02/18 11:30 02/06/18 23:03 (Levaquin) 250 mg Q24H PO 02/03/18 13:00 02/06/18 11:31 Cefazolin Sodium 2000 mg/Sodium Chloride 120 ml @ 240 mls/hr Q8H IV 02/03/18 18:00 02/07/18 01:23 (Procardia Xl) 30 mg DAILY PO 02/07/18 09:00 02/07/18 08:03 Sodium Chloride 1,000 ml @ 42 mls/hr [id number] IV 02/06/18 14:00 02/07/18 13:48 02/06/18 14:36 Lactated Ringer's 1,000 ml @ 30 mls/hr Q24H PRN IV 02/06/18 17:30 02/09/18 17:29 Sodium Chloride 500 ml @ 30 mls/hr [id number] PRN IV 02/06/18 17:30 02/09/18 17:29 (Lopressor) 25 mg [employer] HELPER PRN PO 02/06/18 17:45 02/09/18 17:44 (Betadine 5% Antisepsis Kit) 1 applic [employer] HELPER PRN EACH NARE 02/06/18 17:45 02/09/18 17:44 (Chlorhexidine 2% Cloth) 3 pack [employer] HELPER PRN TOPICAL 02/06/18 17:45 02/09/18 17:44 Vital Signs / I&O Vital Signs Date Time Temp Pulse Resp B/P (MAP) Pulse Ox O2 Delivery O2 Flow Rate FiO2 02/07/18 06:00 97.5 80 18 155/80 (105) 98 02/07/18 02:35 97.9 74 18 165/79 (107) 95 02/07/18 00:18 18 3/26/18 23:15 98.8 82 18 169/81 (110) 97 02/06/18 16:00 98.1 82 17 143/75 (97) 96 02/06/18 12:00 98.4 84 18 170/80 (110) 97 02/06/18 09:02 98.0 81 16 178/85 (116) 96 I/O 02/06/18 02/06/18 02/06/18 02/07/18 02/07/18 02/07/18 07:00 15:00 23:00 07:00 15:00 23:00 Intake Total 620 ml 120 ml Balance 620 ml 120 ml Intake Oral 620 ml IV Total 120 ml # Voids 1 4 4 Physical Exam GENERAL: SKIN: Warm and dry. HEAD: Atraumatic. Normocephalic. EYES: Pupils equal and round. No scleral icterus. ENT: No nasal bleeding or discharge NECK: Trachea midline. No JVD. CARDIOVASCULAR: Regular rate and rhythm. no murmurs RESPIRATORY: No accessory muscle use. Clear to auscultation. Breath sounds equal bilaterally. GASTROINTESTINAL: Abdomen soft, non-tender, nondistended. Hepatic and splenic margins not palpable. MUSCULOSKELETAL: Extremities without clubbing, cyanosis, or edema. No obvious deformities. NEUROLOGICAL: Awake and alert. No obvious cranial nerve deficits. Normal speech. PSYCHIATRIC: Appropriate mood and affect; insight and judgment normal. Laboratory Laboratory Tests Test 01/30/18 04:00 01/30/18 06:05 01/31/18 06:15 02/02/18 12:45 Differential Total Cells Counted 100 Neutrophils % (Manual) 66 % Band Neutrophils % 18 % Lymphocytes % 12 % Monocytes % 3 % Basophils % 1 % Neutrophils # (Manual) 5.8 TH/MM3 Dohle Bodies PRESENT Platelet Estimate NORMAL Platelet Morphology Comment NORMAL Red Cell Morphology Comment NORMAL Lactic Acid Level 0.8 mmol/L Urine Color YELLOW Urine Turbidity HAZY Urine pH 6.0 Urine Specific [place] 1.007 Urine Protein 30 mg/dL Urine Glucose (UA) NEG mg/dL Urine Ketones 10 mg/dL Urine Occult Blood TRACE Urine Nitrite POS Urine Bilirubin NEG Urine Urobilinogen LESS THAN 2.0 MG/DL Urine Leukocyte Esterase MOD Urine WBC 23 /hpf Urine Squamous Epithelial Cells <1 /hpf Urine Bacteria OCC /hpf Microscopic Urinalysis Comment CULTURE INDICATED Blood Urea Nitrogen 13 MG/DL Creatinine 0.66 MG/DL Random Glucose 121 MG/DL Total Protein 6.3 GM/DL Albumin 2.4 GM/DL Calcium Level 7.9 MG/DL Alkaline Phosphatase 211 U/L Aspartate Amino Transf (AST/SGOT) 15 U/L Alanine Aminotransferase (ALT/SGPT) 25 U/L Total Bilirubin 0.3 MG/DL Sodium Level 137 MEQ/L Potassium Level 3.8 MEQ/L Chloride Level 107 MEQ/L Carbon Dioxide Level 20.2 MEQ/L Vancomycin Level Trough 17.5 MCG/ML Test 02/03/18 07:06 02/04/18 06:49 Blood Urea Nitrogen 11 MG/DL 12 MG/DL Creatinine 0.98 MG/DL 0.85 MG/DL Random Glucose 103 MG/DL 91 MG/DL Calcium Level 8.7 MG/DL 8.4 MG/DL Phosphorus Level 2.5 MG/DL Magnesium Level 1.8 MG/DL 1.7 MG/DL Sodium Level 138 MEQ/L 138 MEQ/L Potassium Level 3.9 MEQ/L 3.9 MEQ/L Chloride Level 107 MEQ/L 107 MEQ/L Carbon Dioxide Level 23.5 MEQ/L 23.4 MEQ/L Lipase 129 U/L White Blood Count 6.4 TH/MM3 Red Blood Count 2.32 MIL/MM3 Hemoglobin 8.3 GM/DL Hematocrit 23.8 % Mean Corpuscular Volume 102.6 FL Mean Corpuscular Hemoglobin 35.7 PG Mean Corpuscular Hemoglobin Concent 34.8 % Red Cell Distribution Width 14.2 % Platelet Count 187 TH/MM3 Mean Platelet Volume 8.2 FL Neutrophils (%) (Auto) 63.9 % Lymphocytes (%) (Auto) 19.1 % Monocytes (%) (Auto) 11.8 % Eosinophils (%) (Auto) 4.6 % Basophils (%) (Auto) 0.6 % Neutrophils # (Auto) 4.1 TH/MM3 Lymphocytes # (Auto) 1.2 TH/MM3 Monocytes # (Auto) 0.8 TH/MM3 Eosinophils # (Auto) 0.3 TH/MM3 Basophils # (Auto) 0.0 TH/MM3 CBC Comment DIFF FINAL Differential Comment Anion Gap 8 MEQ/L Estimat Glomerular Filtration Rate 67 ML/MIN (Odette Hanson) Assessment and Plan Problem List: (1) HTN (hypertension) ICD Codes: I10 - Essential (primary) hypertension Status: Chronic (2) Sepsis ICD Codes: A41.9 - Sepsis, unspecified organism Assessment and Plan 67 yo WF with COPD, HTN and uterine cancer who finished chemotherapy 2 months ago who presented with swelling and erythema around port site, found to have positive blood culture for staph aureus. sepsis- transthoracic echo ok, will proceed with AVERY today to rule out vegetation. (Odette Hanson) Assessment and Plan --------- AVERY - no vegetations. call with further questions will sign off (Alexis Quintero MD) Odette Hanson Feb 07, 2018 08:14 Alexis Quintero MD Feb 07, 2018 12:09
[2018-02-07] MEDS: ACETAMINOPHEN/HYDROcodone 325 MG/10 MG TAB PO PRN ×2 (08:28→21:23)
[2018-02-07 08:45] LABS: AUTOMATED NEUTROPHIL # 3.7 TH/MM3 (1.8-7.7); BASOPHIL % 0.7 % (0.0-2.0); EOSINOPHIL # 0.2 TH/MM3 (0-0.4); EOSINOPHIL % 3.1 % (0.0-4.0); HEMOGLOBIN 8.7 GM/DL (11.6-15.3); LYMPH % 23.5 % (9.0-44.0); LYMPHOCYTE # 1.4 TH/MM3 (1.0-4.8); MEAN CELL VOLUME 100.4 FL (80.0-100.0); MEAN CORPUSCULAR HGB CONC 34.9 % (32.0-36.0); MEAN PLATELET VOLUME 8.2 FL (7.0-11.0); MONO % 10.1 % (0.0-8.0); MONOCYTE # 0.6 TH/MM3 (0-0.9); NEUT % 62.6 % (16.0-70.0); PLATELET COUNT 218 TH/MM3 (150-450); RED BLOOD COUNT 2.49 MIL/MM3 (4.00-5.30); RED CELL DISTRIBUTION WIDTH 13.9 % (11.6-17.2); WHITE BLOOD COUNT 5.9 TH/MM3 (4.0-11.0)
[2018-02-07 09:17] LABS: BICARBONATE 28.1 MEQ/L (21.0-32.0); CALCIUM 8.6 MG/DL (8.5-10.1); CREATININE 0.85 MG/DL (0.50-1.00)
--- NOTE | 2018-02-07 10:07 | RADRPT ---
EXAM DATE/TIME: 02/07/2018 10:37 [place] COMPARISON: No previous studies available for comparison. INDICATIONS : Port infection. Headaches. MEDICAL HISTORY : Hypercholesterolemia. Arthritis. HTN. COPD. Dyspnea. GERD. Ovarian cancer. Blood dyscrasias. Anxiet y. SURGICAL HISTORY : Tonsillectomy. section. Hysterectomy. Left cataract surgery. Tubal ligation. Left foot tendo n surgery. Left knee replacement. Chemotherapy. Blood transfusions. D&C. Breast biopsy. ENCOUNTER: Initial ACUITY: 1 day PAIN SCORE: 3/10 LOCATION: Bilateral neck PEAK SYSTOLIC VELOCITIES (cm/sec): ICA/CCA RATIO: Right: 1.6 Left: 1.3 ICA: Right: 118 Left: 164 CCA: Right: 74 Left: 130 ECA: Right: 119 Left: 105 VERTEBRAL: Right: 75 antegrade Left: 89 antegrade Elevated flow velocities and ICA/CCA ratios have been found to correlate with increased degrees of vessel stenosis, calculated as percentage of diameter relative to a normal segment of distal ICA/CCA FINDINGS: RIGHT CAROTID: No significant stenosis is visualized. The waveforms are within normal limits. LEFT CAROTID: Elevated flow velocity in the left internal carotid artery above the carotid bifurcation level potent ially indicative of moderate stenosis, potentially a 50-69%. VERTEBRAL ARTERIES: Antegrade flow is seen in both vertebral arteries. MISCELLANEOUS: None. CONCLUSION: Abnormal study. Recommend CTA examination of the arch and carotids for definitive evaluation Deshawn Paul MD on February 07, 2018 at 10:00 Board Certified Radiologist. This report was verified electronically.
[2018-02-07] MEDS ORDERED: PROPOFOL 200 MG/20 ML AMP ONE (11:39)
[2018-02-07 12:00] VITALS: BP 137/70; PULSE 64; RESP 18; TEMP 98; O2SAT 95
[2018-02-07] MEDS ORDERED: MISCELLANEOUS NURSING INFORMATION XX PRN (12:15)
--- NOTE | 2018-02-07 12:40 | ECHRPT ---
Indication: Acute and subacute endocarditis, unspecified CONCLUSIONS Normal left ventricular size and wall thickness. The left ventricular systolic function is normal wi th an estimated ejection fraction in the range of 60-65%. Left ventricular diastolic function parameters a re normal. Mild thickening of the mitral valve leaflets. Trace mitral valve regurgitation. BP: / HR: Rhythm: Technical Quality: Medications Complications Proc. Components The patient was brought to the diagnostic imaging area in a fasting state after o btaining an informed consent. The patient was premedicated with IV Versed and IV Fentanyl. The signs cleaner ior pharynx was sprayed with Cetacaine spray and the patient was administered viscous Xylocaine 2 %. The AVERY probe was passed into the posterior pharynx , mid-esophagus, distal esophagus, and gastric fundus. AVERY was performed at multiple levels. The patient tolerated the procedure well and there were no complications. The patient was transferred to the floor in satisfactory condition.. FINDINGS LEFT VENTRICLE Normal left ventricular size and wall thickness. The left ventricular systolic function is normal wi th an estimated ejection fraction in the range of 60-65%. Left ventricular diastolic function parameters a re normal. RIGHT VENTRICLE Normal right ventricular size and systolic function. LEFT ATRIUM The left atrial size is normal. RIGHT ATRIUM The right atrial size is normal. ATRIAL APPENDAGES Normal left atrial appendage size with no evidence of thrombus formation. ATRIAL SEPTUM Normal atrial septal thickness without atrial level shunting by limited color doppler interrogation. AORTA The aortic root and proximal ascending aorta are normal in size on limited imaging. MITRAL VALVE Mild thickening of the mitral valve leaflets. Trace mitral valve regurgitation. AORTIC VALVE Trileaflet aortic valve. No aortic valve stenosis or regurgitation. TRICUSPID VALVE Structurally normal tricuspid valve. No tricuspid valve stenosis or regurgitation. VESSELS The inferior vena cava is normal in size. PULMONARY VALVE The pulmonary valve is not well visualized. PERICADIUM No pericardial effusion. Alexis Quintero MD, FACC (Electronically Signed) Final Date:07 February 2018 12:39
[2018-02-07] MEDS: LEVOFLOXACIN 250 MG TAB PO SCH (12:58)
[2018-02-07] MEDS: ENOXAPARIN SODIUM 40 MG/0.4 ML SYRINGE SQ SCH (12:58)
--- NOTE | 2018-02-07 13:32 | HHI.IDPN ---
Subjective Subjective Remarks 67 F with Uterine ca, PORT, chemo and MSSA sepsis. BC (+) 01/30-02/02 S/P PORT removal 01/31 AVERY no vegetation Repeat BCX 02/03 shows no growth On Ancef since 02/03 No new complaints Patient states she feels well today. Denies any fever or chills. Denies any nausea, vomiting or abdominal pain. Denies any dysuria. Reports normal BM. No rash or itching Antibiotics Cefazolin Levaquin Current Medications Medications (Trade) Dose Ordered Sig/Radha Route Start Time Stop Time Status Last Admin (NS Flush) 2 ml UNSCH PRN IV FLUSH 01/30/18 09:15 (NS Flush) 2 ml BID IV FLUSH 01/30/18 21:00 02/06/18 21:33 (Tylenol) 650 mg Q4H PRN PO 01/30/18 09:15 02/01/18 22:24 (Narcan Inj) 0.4 mg UNSCH PRN IV PUSH 01/30/18 09:15 (Carmen-Colace) 1 tab BID PO 01/30/18 21:00 02/07/18 08:02 (Milk Of Jessy Liq) 30 ml Q12H PRN PO 01/30/18 09:15 02/01/18 13:15 (Proair Hfa Inh) 2 puff Q6H PRN INH 01/31/18 14:00 (Xanax) 0.25 mg BID PRN PO 01/31/18 14:00 02/01/18 13:09 (Lipitor) 40 mg HS PO 01/31/18 21:00 02/06/18 21:32 (Lexapro) 20 mg DAILY PO 01/31/18 15:00 02/07/18 08:02 (Prinivil) 10 mg DAILY PO 02/01/18 09:00 02/07/18 08:02 (Ditropan) 5 mg Q12HR PO 01/31/18 21:00 02/07/18 08:02 Patient Own Medication PT OWN MED: (Budeson... DAILY PO 02/01/18 09:00 Future Hold Patient Own Medication PT OWN MED: (Umeclidinium [place] ... DAILY INH 02/01/18 09:00 Future Hold (Zofran Inj) 4 mg Q4H PRN IVP 02/01/18 10:45 02/02/18 07:09 (Lovenox Inj) 40 mg Q24H SQ 02/01/18 12:00 02/07/18 12:58 (Spiriva Inh) 18 mcg DAILY INH 02/02/18 09:00 02/07/18 08:05 (Mag-Al Plus Susp Liq) 15 ml Q6H PRN PO 02/01/18 19:15 (Catapres) 0.1 mg Q6H PRN PO 02/02/18 11:30 (Reglan) 10 mg ACHS PO 02/02/18 12:00 02/07/18 12:58 (Protonix) 40 mg DAILY PO 02/03/18 09:00 02/07/18 08:02 ([place] 10-325 Mg) 1 tab Q4H PRN PO 02/02/18 11:30 02/07/18 08:28 (Levaquin) 250 mg Q24H PO 02/03/18 13:00 02/07/18 12:58 Cefazolin Sodium 2000 mg/Sodium Chloride 120 ml @ 240 mls/hr Q8H IV 02/03/18 18:00 02/07/18 12:57 (Procardia Xl) 30 mg DAILY PO 02/07/18 09:00 02/07/18 08:03 Sodium Chloride 1,000 ml @ 42 mls/hr [id number] IV 02/06/18 14:00 02/07/18 13:48 02/06/18 14:36 Lactated Ringer's 1,000 ml @ 30 mls/hr Q24H PRN IV 02/06/18 17:30 02/09/18 17:29 Sodium Chloride 500 ml @ 30 mls/hr [id number] PRN IV 02/06/18 17:30 02/09/18 17:29 (Lopressor) 25 mg DARKROOM TECHNICIAN PRN PO 02/06/18 17:45 02/09/18 17:44 (Betadine 5% Antisepsis Kit) 1 applic DARKROOM TECHNICIAN PRN EACH NARE 02/06/18 17:45 02/09/18 17:44 (Chlorhexidine 2% Cloth) 3 pack DARKROOM TECHNICIAN PRN TOPICAL 02/06/18 17:45 02/09/18 17:44 Miscellaneous Information 1 UNSCH PRN XX 02/07/18 12:15 02/10/18 12:14 Lines PIV, no evidence of infection Past Medical History Uterine carcinoma, completed 6 cycles of chemotherapy, finished Dec 06 COPD Colitis HTN Hx of pancreatitis Allergies: Coded Allergies: penicillin G (Unverified Allergy, Severe, UNKNOWN, 06/28/17) propoxyphene (Unverified Allergy, Severe, HEADACHE AND NAUSEA, 06/28/17) Objective . Vital Signs Date Time Temp Pulse Resp B/P (MAP) Pulse Ox O2 Delivery O2 Flow Rate FiO2 02/07/18 08:00 98.2 79 18 163/76 (105) 94 02/07/18 06:00 97.5 80 18 155/80 (105) 98 02/07/18 02:35 97.9 74 18 165/79 (107) 95 02/07/18 00:18 18 02/06/18 23:15 98.8 82 18 169/81 (110) 97 02/06/18 16:00 98.1 82 17 143/75 (97) 96 . Laboratory Tests Test 02/07/18 06:56 White Blood Count 5.9 TH/MM3 Red Blood Count 2.49 MIL/MM3 Hemoglobin 8.7 GM/DL Hematocrit 25.0 % Mean Corpuscular Volume 100.4 FL Mean Corpuscular Hemoglobin 35.0 PG Mean Corpuscular Hemoglobin Concent 34.9 % Red Cell Distribution Width 13.9 % Platelet Count 218 TH/MM3 Mean Platelet Volume 8.2 FL Neutrophils (%) (Auto) 62.6 % Lymphocytes (%) (Auto) 23.5 % Monocytes (%) (Auto) 10.1 % Eosinophils (%) (Auto) 3.1 % Basophils (%) (Auto) 0.7 % Neutrophils # (Auto) 3.7 TH/MM3 Lymphocytes # (Auto) 1.4 TH/MM3 Monocytes # (Auto) 0.6 TH/MM3 Eosinophils # (Auto) 0.2 TH/MM3 Basophils # (Auto) 0.0 TH/MM3 CBC Comment DIFF FINAL Differential Comment Laboratory Tests Test 02/07/18 06:56 Blood Urea Nitrogen 8 MG/DL Creatinine 0.85 MG/DL Random Glucose 81 MG/DL Calcium Level 8.6 MG/DL Sodium Level 138 MEQ/L Potassium Level 3.0 MEQ/L Chloride Level 101 MEQ/L Carbon Dioxide Level 28.1 MEQ/L Anion Gap 9 MEQ/L Estimat Glomerular Filtration Rate 67 ML/MIN Imaging Last Impressions Chest X-Ray 02/03/18 0600 Signed Impressions: Service Date/Time: Saturday, February 03, 2018 06:42 - CONCLUSION: Left basilar discoid atelectasis. Jah Hicks MD Port Line Revision 01/31/18 0000 Signed Impressions: Service Date/Time: Wednesday, January 31, 2018 00:00 - CONCLUSION: Uncomplicated port removal as above. Geraldo Segal MD Head CT 01/30/18 0000 Signed Impressions: Service Date/Time: Tuesday, January 30, 2018 05:29 - CONCLUSION: Negative noncontrast CT brain. Mike Mayorga MD Physical Exam GENERAL: Patient is a well-nourished, well-developed female, awake and alert. NAD. is at the bedside. SKIN: Warm and dry. No generalized rash, no ecchymoses and no evidence of embolic lesions. HEAD: Atraumatic. Normocephalic. No temporal wasting, or tenderness. EYES: Pupils equal, round and reactive to light. Extraocular movements full and intact. No scleral icterus. No injection or drainage. EARS, NOSE AND THROAT: Nose without bleeding or purulent nasal discharge. No sinus tenderness. Mucous membranes pink and moist. No oral lesions noted. No exudate. No oral thrush. CARDIOVASCULAR: Regular rate and rhythm. No murmurs, rubs or gallops heard. Dry intact dressing over her previous port site, nontender to palpation, no erythema appreciated. RESPIRATORY: Clear to auscultation. Breath sounds equal bilaterally. No rales , wheezing or rhonchi ABDOMEN: Soft, non-tender, nondistended. Bowel sounds present and normoactive. EXTREMITIES: No clubbing, cyanosis, or edema. NEUROLOGICAL: Non-focal PSYCHIATRIC: Normal affect, calm and cooperative. LINE: No evidence of infection Assessment & Plan Remarks IMPRESSION MSSA Staph aureus sepsis, likely due to port infection - high grade - AVERY negative - ?septic phlebitis Pyuria, no symptoms Known uterine CA, S/P chemo COPD Allergies to penicillin, but she has tolerated cephalosporins RECOMMENDATION Continue Ancef - plan Abx til March 15 US RUE If stable, PICC tomorrow and arrange for home IV Abx Continue Levaquin as planned Explained plan to patient and D/W Dawn Altamirano MD Feb 07, 2018 13:32
--- NOTE | 2018-02-07 13:38 | HHI.PR ---
Subjective Remarks Pt had AVERY today which was essentially negative for any noted valvular vegetation Objective Vitals Vital Signs Date Time Temp Pulse Resp B/P (MAP) Pulse Ox O2 Delivery O2 Flow Rate FiO2 02/07/18 08:00 98.2 79 18 163/76 (105) 94 02/07/18 06:00 97.5 80 18 155/80 (105) 98 02/07/18 02:35 97.9 74 18 165/79 (107) 95 02/07/18 00:18 18 02/06/18 23:15 98.8 82 18 169/81 (110) 97 02/06/18 16:00 98.1 82 17 143/75 (97) 96 Result Diagram: 02/07/18 0656 02/07/18 0656 Other Results Laboratory Tests Test 02/07/18 06:56 White Blood Count 5.9 TH/MM3 Red Blood Count 2.49 MIL/MM3 Hemoglobin 8.7 GM/DL Hematocrit 25.0 % Mean Corpuscular Volume 100.4 FL Mean Corpuscular Hemoglobin 35.0 PG Mean Corpuscular Hemoglobin Concent 34.9 % Red Cell Distribution Width 13.9 % Platelet Count 218 TH/MM3 Mean Platelet Volume 8.2 FL Neutrophils (%) (Auto) 62.6 % Lymphocytes (%) (Auto) 23.5 % Monocytes (%) (Auto) 10.1 % Eosinophils (%) (Auto) 3.1 % Basophils (%) (Auto) 0.7 % Neutrophils # (Auto) 3.7 TH/MM3 Lymphocytes # (Auto) 1.4 TH/MM3 Monocytes # (Auto) 0.6 TH/MM3 Eosinophils # (Auto) 0.2 TH/MM3 Basophils # (Auto) 0.0 TH/MM3 CBC Comment DIFF FINAL Differential Comment Blood Urea Nitrogen 8 MG/DL Creatinine 0.85 MG/DL Random Glucose 81 MG/DL Calcium Level 8.6 MG/DL Sodium Level 138 MEQ/L Potassium Level 3.0 MEQ/L Chloride Level 101 MEQ/L Carbon Dioxide Level 28.1 MEQ/L Anion Gap 9 MEQ/L Estimat Glomerular Filtration Rate 67 ML/MIN Imaging Last Impressions Carotid Artery Ultrasound 02/07/18 0000 Signed Impressions: Service Date/Time: Wednesday, February 07, 2018 10:37 - CONCLUSION: Abnormal study. Recommend CTA examination of the arch and carotids for definitive evaluation Deshawn Paul MD Chest X-Ray 02/03/18 0600 Signed Impressions: Service Date/Time: Saturday, February 03, 2018 06:42 - CONCLUSION: Left basilar discoid atelectasis. Jah Hicks MD Port Line Revision 01/31/18 0000 Signed Impressions: Service Date/Time: Wednesday, January 31, 2018 00:00 - CONCLUSION: Uncomplicated port removal as above. Geraldo Segal MD Head CT 01/30/18 0000 Signed Impressions: Service Date/Time: Tuesday, January 30, 2018 05:29 - CONCLUSION: Negative noncontrast CT brain. Mike Mayorga MD Last Impressions Chest X-Ray 01/30/18 0356 Signed Impressions: Service Date/Time: Tuesday, January 30, 2018 04:15 - CONCLUSION: No acute findings. Stable linear atelectasis or scarring in the left lower lobe. Mike Mayorga MD Head CT 01/30/18 0000 Signed Impressions: Service Date/Time: Tuesday, January 30, 2018 05:29 - CONCLUSION: Negative noncontrast CT brain. Mike Mayorga MD Objective Remarks General: NAD, AAOx3 Chest: CTA Cardiac: Regular Abd: +BS, soft ND/NT Ext: No edema A/P Problem List: (1) Intravenous catheter sepsis ICD Codes: T82.7XXA - Infection and inflammatory reaction due to other cardiac and vascular devices, implants and grafts, initial encounter; A41.9 - Sepsis, unspecified organism Status: Acute Plan: IV Catheter line sepsis, acute - Pt is a 67 y/o female with hypertension, COPD, depression/anxiety, GERD, osteoarthritis, hyperlipidemia, pancreatitis and uterine carcinoma. - Patient follows with [employer] oncology, Dr. Pam Palomo. Patient completed 6 rounds of Taxol and carboplatin chemotherapy about 6 weeks ago. - She presented with complaints of fever, confusion and some shortness of breath x 3 days. Patient still has her port in place on the right side of her chest. As per her patient has also been complaining of some pain at the site of the port. T-max at home has been 102.5. In the emergency room upon arrival temperature was 101.5. - At admission she was noted to have dehydration and hyponatremia which improved with IVF - Pt found to have staph aureus line sepsis - Blood cx, peripheral (01/30) with 4/4 MSSA - Blood cx, drawn from port (01/30) with 2/2 MSSA - Port was removed on 01/31 - Repeat blood cx's on 02/01 and 02/02 still MSSA - Repeat blood cx's on 02/03 with no growth x 4 days - 2D echo (02/01)--> mildly dilated LV, estimated EF 55-60%, trace to mild mitral valve regurg, aortic valve sclerosis, no vegetation noted. - Vancomycin changed to cefazolin on 02/03 - Case discussed with Dr. Jacobson on 02/06 and she is requested Doppler US to evaluate for septic thromboemboli and Cardiology consultation to evaluated with AVERY - Pt underwent evaluation with AVERY (02/07/18) --> Negative for any valvular vegetations - Doppler US is pending. - If Doppler US negative then PICC placement tomorrow - ID recommending continuing the Cefazolin Q8H x 6 weeks to complete treatment ( complete on 03/15/18) as an outpt - PT daily - Pain control PRN - DVT prophylaxis with Lovenox UTI, acute - She was also noted to have a UTI with culture growing Citrobacter - Levaquin added on 02/03, completed treatment on 02/07 HTN, chronic, stable - Pt resumed on home meds, Lisinopril 10mg daily, Norvasc 2.5mg po daily - Her BP has still been running high - Norvasc stopped on 02/06 and Procardia 30mg po daily started - BP better after morning meds today, continue to monitor, may need further adjustment if evening BPs continue to be elevated - Clonidine PRN GERD, chronic - PPI and Reglan 10mg ACHS - Antiemetics PRN COPD, chronic, stable - Home meds continued - Duonebs Musculoskeletal Chest Pain, acute, improved - Pt received Naprosyn with improvement Chronic anemia - No active bleeding. (2) Fever ICD Codes: R50.9 - Fever, unspecified Status: Acute (3) UTI (urinary tract infection) ICD Codes: N39.0 - Urinary tract infection, site not specified Status: Acute (4) Confusion ICD Codes: R41.0 - Disorientation, unspecified Status: Acute (5) Bandemia ICD Codes: D72.825 - Bandemia Status: Acute (6) Hyponatremia ICD Codes: E87.1 - Hypo-osmolality and hyponatremia Status: Resolved Assessment and Plan Patient examined. Assessment and plan formulated with Shauna Botello PA-C. I agree with the above. Obtain CTA carotids Arrange outpt antibiotics. Anticipate d/c to home with [facility] 02/08/18 Problem Qualifiers (1) Fever: Qualified Codes: R50.9 - Fever, unspecified Shauna Botello Feb 07, 2018 13:38 Sp Morgan DO Feb 08, 2018 03:16
--- NOTE | 2018-02-07 15:15 | RADRPT ---
EXAM DATE/TIME: 02/07/2018 15:15 CORRECTION Corrected on: February 13, 2018; Added Indictaions [facility] COMPARISON: No previous studies available for comparison. INDICATIONS : Right arm swelling. MEDICAL HISTORY : Hypercholesterolemia. Arthritis. Hypertension. COPD. Dyspnea. GERD. Ovarian cancer. Blood dyscrasias. Anxiety. SURGICAL HISTORY : Tonsillectomy. section. Hysterectomy. Left cataract surgery. Tubal ligation. Left foot tend on surgery. Left knee replacement. Chemotherapy. Blood transfusions. D&C. Breast biopsy. ENCOUNTER: Initial ACUITY: 1 day PAIN SCORE: 0/10 LOCATION: Right arm. FINDINGS: There is thrombosis in the radial vein. The internal jugular, subclavian, axillary, brachial, basilic and cephalic veins are patent. CONCLUSION: 1. Positive for superficial thrombus in the right radial vein. Mike Oscar Jr., MD on February 07, 2018 at 15:04 Board Certified Radiologist. This report was verified electronically.
[2018-02-07] MEDS: POTASSIUM CHLORIDE 20 MEQ CONTROLLED RELEASE TAB PO SCH ×2 (15:30→18:47)
[2018-02-07 16:00] VITALS: BP 145/67; PULSE 80; RESP 18; TEMP 98.1; O2SAT 96
[2018-02-07] MEDS ORDERED: SODIUM CHLORIDE 0.9% FLUSH 10 ML FLUSH IV FLUSH PRN (19:00)
--- NOTE | 2018-02-07 19:37 | RADRPT ---
EXAM DATE/TIME: 02/07/2018 18:44 [facility] COMPARISON: CHEST SINGLE AP, February 03, 2018, 6:42. INDICATIONS : PICC line placement. MEDICAL HISTORY : None. SURGICAL HISTORY : None. ENCOUNTER: Subsequent ACUITY: 1 week PAIN SCORE: 0/10 LOCATION: Bilateral chest FINDINGS: There is a PICC line placed from the left arm with the tip overlying the SVC. The heart size is franki l. There is minimal linear atelectasis or scarring at the lateral left lower lung. The right lung is clear. No effusion is seen. A pneumothorax is seen. CONCLUSION: PICC line in good position. Deshawn Velasco MD on February 07, 2018 at 19:35 Board Certified Radiologist. This report was verified electronically.
[2018-02-07 20:24] VITALS: BP 148/72; PULSE 93; RESP 18; TEMP 98.3; O2SAT 97
[2018-02-07] MEDS ORDERED: IOHEXOL 350 MG/ML 10 ML VIAL (for RAD DIAG) IVCONTRAST ONE (21:20)
[2018-02-07] MEDS: ATORVASTATIN 40 MG TAB PO SCH (21:21)
--- NOTE | 2018-02-07 21:57 | RADRPT ---
EXAM DATE/TIME: 02/07/2018 20:52 [facility] COMPARISON: No previous studies available for comparison. INDICATIONS : Cephalgia. Abnormal carotid ultrasound, evaluate for carotid stenosis. IV CONTRAST: 70 cc Omnipaque 350 (iohexol) IV RADIATION DOSE: 10.19 CTDIvol (mGy) MEDICAL HISTORY : Hypertension. Chronic obstructive pulmonary disease. Ovarian cancer. SURGICAL HISTORY : Hysterectomy. ENCOUNTER: Subsequent ACUITY: 1 week PAIN SCALE: 6/10 LOCATION: cranial Elevated flow velocities and ICA/CCA ratios have been found to correlate with increased degrees of vessel stenosis, calculated as percentage of diameter relative to a normal segment of distal ICA/CCA. TECHNIQUE: Volumetric scanning was performed using a multirow detector CT scanner. The data was post processed with a variety of visualization algorithms including full-volume maximum intensity projection, multip lanar sliding thin-slab reformation, curved-planar reformation, and surface-rendering techniques. Us ing automated exposure control and adjustment of the mA and/or kV according to patient size, radiatio n dose was kept as low as reasonably achievable to obtain optimal diagnostic quality images. DICOM f ormat image data is available electronically for review and comparison. FINDINGS: AORTIC ARCH: There is a three-vessel origin of the great vessels from the aorta. No evidence of ostial narrowing. There is calcification at the origins of the great vessels. RIGHT CAROTID: The common carotid artery is intact. There is mild calcified plaque at the carotid bulb region. The i nternal carotid artery lumen is smooth without stenosis. The external carotid artery is intact. LEFT CAROTID: There is mild plaque narrowing the lumen by approximately 40% at the mid left common carotid artery. There is mild calcified plaque at the carotid bulb region. The internal carotid artery lumen is rommel h without stenosis. The external carotid artery is intact. VERTEBRALS: The vertebral arteries have a symmetric diameter. No stenotic lesions are seen. CONCLUSION: 1. Mild calcified plaque at the carotid bulb regions without a significant stenosis. 2. Mild mixed soft and hard plaque at the mid left common carotid artery narrowing the lumen by less than 50%. 3. Calcifications seen at the origins of all the great vessels. Deshawn Velasco MD on February 07, 2018 at 21:50 Board Certified Radiologist. This report was verified electronically.
[2018-02-08] MEDS: CEFAZOLIN INJ 2,000 MG in SODIUM CHLORIDE 0.9% INJ 100 ML IV SCH ×2 (00:32→10:39)
[2018-02-08 00:38] VITALS: BP 144/66; PULSE 95; RESP 18; TEMP 98.3; O2SAT 94
[2018-02-08 04:00] VITALS: BP 132/65; PULSE 85; RESP 18; TEMP 98.3; O2SAT 94
[2018-02-08 07:14] LABS: BICARBONATE 26.4 MEQ/L (21.0-32.0); CALCIUM 8.8 MG/DL (8.5-10.1); CREATININE 0.89 MG/DL (0.50-1.00); MAGNESIUM 1.6 MG/DL (1.5-2.5)
[2018-02-08 08:26] VITALS: BP 152/66; PULSE 86; RESP 18; TEMP 98.3; O2SAT 92
[2018-02-08] MEDS: TIOTROPIUM BROMIDE 18 MCG INH INH SCH (09:00)
[2018-02-08] MEDS ORDERED: SODIUM CHLORIDE 0.9% FLUSH 10 ML FLUSH IV FLUSH SCH (09:00)
[2018-02-08] MEDS: SODIUM CHLORIDE 0.9% FLUSH 10 ML FLUSH IV FLUSH SCH (09:00)
[2018-02-08] MEDS: LISINOPRIL 10 MG TAB PO SCH (09:03)
[2018-02-08] MEDS: OXYBUTYNIN CHLORIDE 5 MG TAB PO SCH (09:03)
[2018-02-08] MEDS: METOCLOPRAMIDE HCL 10 MG TAB PO SCH ×2 (09:03→10:40)
[2018-02-08] MEDS: PANTOPRAZOLE SOD 40 MG DELAYED RELEASE TAB PO SCH (09:03)
[2018-02-08] MEDS: DOCUSATE SODIUM 50 MG/SENNA 8.6 MG TAB PO SCH (09:03)
[2018-02-08] MEDS: ESCITALOPRAM OXALATE 20 MG TAB PO SCH (09:04)
[2018-02-08] MEDS: NIFEdipine 30 MG SUSTAINED RELEASE TAB PO SCH (09:04)
--- NOTE | 2018-02-08 09:05 | HHI.FF ---
Infusion Therapy Location of Infusion Therapy: Home Health Care IV Infusion Order Patient Information Patient Weight 83 kg Diagnosis: Diagnosis High grade MSSA sepsis due to port infection Coded Allergies: penicillin G (Unverified Allergy, Severe, UNKNOWN, 06/28/17) propoxyphene (Unverified Allergy, Severe, HEADACHE AND NAUSEA, 06/28/17) Administer Medication Cefazolin 2 grams IV q 8 hours Ancef 2 gm IV q8h - can do CADD plus pump or IV push Stop Treatment: March 15, 2018 Additional Information Venous access: PICC Line Additional Instructions [x] Peripheral flush and dressing changes per protocol [x] Implanted port and central computer typesetter keyliner: * Implanted port: 10 ml Normal Saline followed by 5 ml Heparin 100 units/ml Heparin flush after each use and monthly to maintain. [] May leave port accessed during therapy. [] May leave peripheral site accessed for duration of therapy. [x] If patient has SOB or respiratory distress, check oxygen saturation. If less than 90% or clinical signs of respiratory distress, administer oxygen at 2 L/min. via nasal cannula and notify physician. [x] Anaphylaxis/Reaction orders: * Stop infusion. * Keep IV line open with saline flush. * Notify physician. * Monitor vital signs every 15 minutes until symptoms resolve. * Check Oxygen saturation; Oxygen at 2 L/min. via nasal cannula if less than 90% or clinical signs of respiratory distress. * Administer diphenhydramine (Benadryl) 25 mg IV STAT, (unless patient has received as pre-med). May repeat once, if necessary. * Solu-Cortef 250 mg IVP over 30-60 seconds, use 100 mg vials for each dissolution. * Epinephrine (1mg/1 ml) 0.3 mg subcutaneously or IVP now with any signs of respiratory distress. * Check with physician for new additional pre-med orders if patient is re- challenged or re-treated. [x] May remove PICC line when treatment complete, after confirming with Physician. [x] If the patient is admitted to the hospital, the ED, or transferred via [facility] , complete transfer form including medication reconciliation order sheet. Laboratory Tests Weekly Labs: CBC w/diff, Creatinine (Labs every Tuesday while on IV Ancef - copy to wv) Dawn Ocasio MD Feb 08, 2018 09:05
--- NOTE | 2018-02-08 10:00 | HHI.IDPN ---
Subjective Subjective Remarks 67 F with Uterine ca, PORT, chemo and MSSA sepsis. BC (+) 01/30-02/02 S/P PORT removal 01/31 AVERY no vegetation Repeat BCX 02/03 shows no growth On Ancef since 02/03 No new complaints Has PICC in LUE Antibiotics Cefazolin Levaquin Current Medications Medications (Trade) Dose Ordered Sig/Radha Route Start Time Stop Time Status Last Admin (NS Flush) 2 ml UNSCH PRN IV FLUSH 01/30/18 09:15 (NS Flush) 2 ml BID IV FLUSH 01/30/18 21:00 02/07/18 21:21 (Tylenol) 650 mg Q4H PRN PO 01/30/18 09:15 02/01/18 22:24 (Narcan Inj) 0.4 mg UNSCH PRN IV PUSH 01/30/18 09:15 (Carmen-Colace) 1 tab BID PO 01/30/18 21:00 02/08/18 09:03 (Milk Of Magnmelanie Liq) 30 ml Q12H PRN PO 01/30/18 09:15 02/01/18 13:15 (Proair Hfa Inh) 2 puff Q6H PRN INH 01/31/18 14:00 (Xanax) 0.25 mg BID PRN PO 01/31/18 14:00 02/01/18 13:09 (Lipitor) 40 mg HS PO 01/31/18 21:00 02/07/18 21:21 (Lexapro) 20 mg DAILY PO 01/31/18 15:00 02/08/18 09:04 (Prinivil) 10 mg DAILY PO 02/01/18 09:00 02/08/18 09:03 (Ditropan) 5 mg Q12HR PO 01/31/18 21:00 02/08/18 09:03 Patient Own Medication PT OWN MED: (Budeson... DAILY PO 02/01/18 09:00 Future Hold Patient Own Medication PT OWN MED: (Umeclidinium [place] ... DAILY INH 02/01/18 09:00 Future Hold (Zofran Inj) 4 mg Q4H PRN IVP 02/01/18 10:45 02/02/18 07:09 (Lovenox Inj) 40 mg Q24H SQ 02/01/18 12:00 02/07/18 12:58 (Spiriva Inh) 18 mcg DAILY INH 02/02/18 09:00 02/07/18 08:05 (Mag-Al Plus Susp Liq) 15 ml Q6H PRN PO 02/01/18 19:15 (Catapres) 0.1 mg Q6H PRN PO 02/02/18 11:30 (Reglan) 10 mg ACHS PO 02/02/18 12:00 02/08/18 09:03 (Protonix) 40 mg DAILY PO 02/03/18 09:00 02/08/18 09:03 ([place] 10-325 Mg) 1 tab Q4H PRN PO 02/02/18 11:30 02/07/18 21:23 Cefazolin Sodium 2000 mg/Sodium Chloride 120 ml @ 240 mls/hr Q8H IV 02/03/18 18:00 02/08/18 00:32 (Procardia Xl) 30 mg DAILY PO 02/07/18 09:00 02/08/18 09:04 Lactated Ringer's 1,000 ml @ 30 mls/hr Q24H PRN IV 02/06/18 17:30 02/09/18 17:29 Sodium Chloride 500 ml @ 30 mls/hr [id number] PRN IV 02/06/18 17:30 02/09/18 17:29 (Lopressor) 25 mg CLINICAL TRAINER PRN PO 02/06/18 17:45 02/09/18 17:44 (Betadine 5% Antisepsis Kit) 1 applic CLINICAL TRAINER PRN EACH NARE 02/06/18 17:45 02/09/18 17:44 (Chlorhexidine 2% Cloth) 3 pack CLINICAL TRAINER PRN TOPICAL 02/06/18 17:45 02/09/18 17:44 Miscellaneous Information 1 UNSCH PRN XX 02/07/18 12:15 02/10/18 12:14 (NS Flush) See Protocol DAILY IV FLUSH 02/08/18 09:00 (NS Flush) See Protocol UNSCH PRN IV FLUSH 02/07/18 19:00 (Heparin Central Flush) See Protocol DAILY IV FLUSH 02/08/18 09:00 02/08/18 09:03 (Heparin Central Flush) See Protocol UNSCH PRN IV FLUSH 02/07/18 19:00 (NS Flush) UNSCH PRN IV FLUSH 02/07/18 19:00 02/08/18 09:03 Lines PIV, no evidence of infection Past Medical History Uterine carcinoma, completed 6 cycles of chemotherapy, finished Dec 06 COPD Colitis HTN Hx of pancreatitis Allergies: Coded Allergies: penicillin G (Unverified Allergy, Severe, UNKNOWN, 06/28/17) propoxyphene (Unverified Allergy, Severe, HEADACHE AND NAUSEA, 06/28/17) Objective . Vital Signs Date Time Temp Pulse Resp B/P (MAP) Pulse Ox O2 Delivery O2 Flow Rate FiO2 02/08/18 08:26 98.3 86 18 152/66 (94) 92 02/08/18 04:00 98.3 85 18 132/65 (87) 94 02/08/18 00:38 98.3 95 18 144/66 (92) 94 02/07/18 22:23 19 02/07/18 20:24 98.3 93 18 148/72 (97) 97 02/07/18 16:00 98.1 80 18 145/67 (93) 96 02/07/18 12:00 98.0 64 18 137/70 (92) 95 02/08/18 02/08/18 02/09/18 15:00 23:00 07:00 # Bowel Movements 1 . Laboratory Tests Test 02/07/18 06:56 White Blood Count 5.9 TH/MM3 Red Blood Count 2.49 MIL/MM3 Hemoglobin 8.7 GM/DL Hematocrit 25.0 % Mean Corpuscular Volume 100.4 FL Mean Corpuscular Hemoglobin 35.0 PG Mean Corpuscular Hemoglobin Concent 34.9 % Red Cell Distribution Width 13.9 % Platelet Count 218 TH/MM3 Mean Platelet Volume 8.2 FL Neutrophils (%) (Auto) 62.6 % Lymphocytes (%) (Auto) 23.5 % Monocytes (%) (Auto) 10.1 % Eosinophils (%) (Auto) 3.1 % Basophils (%) (Auto) 0.7 % Neutrophils # (Auto) 3.7 TH/MM3 Lymphocytes # (Auto) 1.4 TH/MM3 Monocytes # (Auto) 0.6 TH/MM3 Eosinophils # (Auto) 0.2 TH/MM3 Basophils # (Auto) 0.0 TH/MM3 CBC Comment DIFF FINAL Differential Comment Laboratory Tests Test 02/07/18 06:56 02/08/18 06:34 Blood Urea Nitrogen 8 MG/DL 9 MG/DL Creatinine 0.85 MG/DL 0.89 MG/DL Random Glucose 81 MG/DL 82 MG/DL Calcium Level 8.6 MG/DL 8.8 MG/DL Sodium Level 138 MEQ/L 139 MEQ/L Potassium Level 3.0 MEQ/L 3.6 MEQ/L Chloride Level 101 MEQ/L 103 MEQ/L Carbon Dioxide Level 28.1 MEQ/L 26.4 MEQ/L Anion Gap 9 MEQ/L 10 MEQ/L Estimat Glomerular Filtration Rate 67 ML/MIN 63 ML/MIN Magnesium Level 1.6 MG/DL Imaging Last Impressions Chest X-Ray 02/03/18 0600 Signed Impressions: Service Date/Time: Saturday, February 03, 2018 06:42 - CONCLUSION: Left basilar discoid atelectasis. Jah Hicks MD Port Line Revision 01/31/18 0000 Signed Impressions: Service Date/Time: Wednesday, January 31, 2018 00:00 - CONCLUSION: Uncomplicated port removal as above. Geraldo Segal MD Head CT 01/30/18 0000 Signed Impressions: Service Date/Time: Tuesday, January 30, 2018 05:29 - CONCLUSION: Negative noncontrast CT brain. Mike Mayorga MD Physical Exam GENERAL: Patient is a well-nourished, well-developed female, awake and alert. NAD. is at the bedside. SKIN: Warm and dry. No generalized rash, no ecchymoses and no evidence of embolic lesions. HEAD: Atraumatic. Normocephalic. No temporal wasting, or tenderness. EYES: Pupils equal, round and reactive to light. Extraocular movements full and intact. No scleral icterus. No injection or drainage. EARS, NOSE AND THROAT: Nose without bleeding or purulent nasal discharge. No sinus tenderness. Mucous membranes pink and moist. No oral lesions noted. No exudate. No oral thrush. CARDIOVASCULAR: Regular rate and rhythm. No murmurs, rubs or gallops heard. Dry intact dressing over her previous port site, nontender to palpation, no erythema appreciated. RESPIRATORY: Clear to auscultation. Breath sounds equal bilaterally. No rales , wheezing or rhonchi ABDOMEN: Soft, non-tender, nondistended. Bowel sounds present and normoactive. EXTREMITIES: No clubbing, cyanosis, or edema. NEUROLOGICAL: Non-focal PSYCHIATRIC: Normal affect, calm and cooperative. LINE: No evidence of infection Assessment & Plan Remarks IMPRESSION MSSA Staph aureus sepsis, likely due to port infection - high grade - AVERY negative - ?septic phlebitis Pyuria, no symptoms Known uterine CA, S/P chemo COPD Allergies to penicillin, but she has tolerated cephalosporins RECOMMENDATION Continue Ancef - plan Abx till March 2 - Labs weekly while on IV Abx I filled out Abx form D/W regarding IV Ancef infusion: choice with a 24 hour pump vs IVP - she prefers the 24 hour pump Continue Levaquin as planned D/C once arrangements for IV Abx set D/W CM Explained plan to patient Dawn Ocasio MD Feb 08, 2018 10:00
--- NOTE | 2018-02-08 10:10 | HHI.FF ---
Face to Face Verification Diagnosis: (1) Endometrial cancer (2) Fever (3) Bandemia (4) Sepsis Home Health Nursing Order: Medical education Signs/symptoms of disease process Nursing assessment with vital signs IV medication administration Instructions: CBC w/diff, creatinine (labs every Tuesday while on IV Ancef) send results to PCP Dr. Barraza and ID Dr. Ocasio I have seen patient Josefina Payne on 02/08/18. My clinical findings support the need for the requested home health care services because: Deconditioned w/ increased weakness Limited ability to care for self I certify that my clinical findings support that this patient is homebound because: Unsafe to leave home unassisted Mariana Badillo Feb 08, 2018 10:10 Sp Morgan DO Feb 08, 2018 15:02
[2018-02-08] MEDS ORDERED: NIFE30TA8 PO (10:17)
[2018-02-08] MEDS: ENOXAPARIN SODIUM 40 MG/0.4 ML SYRINGE SQ SCH (10:40)
--- NOTE | 2018-02-08 10:45 | HHI.DCPOC ---
Discharge Care Plan Diagnosis: (1) UTI (urinary tract infection) (2) Intravenous catheter sepsis Goals to Promote Your Health * To prevent worsening of your condition and complications * To maintain your health at the optimal level Directions to Meet Your Goals Take your medications as prescribed Follow your dietary instruction Follow activity as directed Keep your appointments as scheduled Take your immunizations and boosters as scheduled If your symptoms worsen call your PCP, if no PCP go to Urgent Care Center or Emergency Room Smoking is Dangerous to Your Health. Avoid second hand smoke Call the 24-hour hour crisis hotline for domestic abuse at Mariana Badillo Feb 08, 2018 10:45
--- NOTE | 2018-02-08 10:46 | HHI.DS ---
Discharge Summary Admission Date Jan 30, 2018 at 05:19 Discharge Date: Feb 08, 2018 Admitting Diagnosis Sepsis, fever, altered mental status (1) Intravenous catheter sepsis ICD Codes: T82.7XXA - Infection and inflammatory reaction due to other cardiac and vascular devices, implants and grafts, initial encounter; A41.9 - Sepsis, unspecified organism Status: Acute (2) Fever ICD Codes: R50.9 - Fever, unspecified Status: Acute (3) UTI (urinary tract infection) ICD Codes: N39.0 - Urinary tract infection, site not specified Status: Acute (4) Confusion ICD Codes: R41.0 - Disorientation, unspecified Status: Acute (5) Bandemia ICD Codes: D72.825 - Bandemia Status: Acute (6) Hyponatremia ICD Codes: E87.1 - Hypo-osmolality and hyponatremia Status: Resolved Consultants Dr. Ocasio, ID Dr. Quintero, cardiology Procedures 01/31/[address] Segal 02/07/[address] Quintero Brief History This is a 67-year-old female patient with history of hypertension, COPD, depression/anxiety, GERD, osteoarthritis, hyperlipidemia, pancreatitis and uterine carcinoma. Patient follows with [facility] [facility] oncology, Dr. Pam Palomo. Patient completed 6 rounds of Taxol and carboplatin chemotherapy about 6 weeks ago. Patient is currently confused and a poor historian. Information gathered from patient as well as prior charting. Patient presented to the emergency room brought by EMS for fever, confusion and soreness at the right PORT site. Patient reports her shortness of breath is at her baseline due to her COPD. Patient still has her port in place on the right side of her chest. Patient has a planned PET scan in 3 months and patient had planned to keep PORT until after PET scan. T-max at home has been 102.5. In the emergency room upon arrival temperature was 101.5. UA reviewed and consistent with UTI CXR shows: No acute findings. Stable linear atelectasis or scarring in the left lower lobe. CT head Negative noncontrast CT brain. Blood cultures are pending Patient was started on Aztreonam and vancomycin in the ER CBC/BMP: 02/07/18 0656 02/08/18 0634 Significant Findings Laboratory Tests Test 02/07/18 06:56 02/08/18 06:34 Red Blood Count 2.49 MIL/MM3 (4.00-5.30) Hemoglobin 8.7 GM/DL (11.6-15.3) Hematocrit 25.0 % (35.0-46.0) Mean Corpuscular Volume 100.4 FL (80.0-100.0) Mean Corpuscular Hemoglobin 35.0 PG (27.0-34.0) Monocytes (%) (Auto) 10.1 % (0.0-8.0) Potassium Level 3.0 MEQ/L (3.5-5.1) Estimat Glomerular Filtration Rate 67 ML/MIN (>89) 63 ML/MIN (>89) Imaging Last Impressions Upper Extremity Ultrasound 02/07/18 0000 Signed Impressions: Service Date/Time: Wednesday, February 07, 2018 15:15 - CONCLUSION: 1. Positive for superficial thrombus in the right radial vein. Mike Oscar Jr., MD Neck CTA 02/07/18 0000 Signed Impressions: Service Date/Time: Wednesday, February 07, 2018 20:52 - CONCLUSION: 1. Mild calcified plaque at the carotid bulb regions without a significant stenosis. 2. Mild mixed soft and hard plaque at the mid left common carotid artery narrowing the lumen by less than 50%%. 3. Calcifications seen at the origins of all the great vessels. Deshawn Velasco MD Chest X-Ray 02/07/18 0000 Signed Impressions: Service Date/Time: Wednesday, February 07, 2018 18:44 - CONCLUSION: PICC line in good position. Deshawn Velasco MD Carotid Artery Ultrasound 02/07/18 0000 Signed Impressions: Service Date/Time: Wednesday, February 07, 2018 10:37 - CONCLUSION: Abnormal study. Recommend CTA examination of the arch and carotids for definitive evaluation Deshawn Paul MD Port Line Revision 01/31/18 0000 Signed Impressions: Service Date/Time: Wednesday, January 31, 2018 00:00 - CONCLUSION: Uncomplicated port removal as above. Geraldo Segal MD Head CT 01/30/18 0000 Signed Impressions: Service Date/Time: Tuesday, January 30, 2018 05:29 - CONCLUSION: Negative noncontrast CT brain. Mike Mayorga MD PE at Discharge General: NAD, AAOx3 Chest: CTA Cardiac: Regular Abd: +BS, soft ND/NT Ext: No edema Hospital Course IV Catheter line sepsis, acute - Pt is a 67 y/o female with hypertension, COPD, depression/anxiety, GERD, osteoarthritis, hyperlipidemia, pancreatitis and uterine carcinoma. - Patient follows with [facility] [facility] oncology, Dr. Pam Palomo. Patient completed 6 rounds of Taxol and carboplatin chemotherapy about 6 weeks ago. - She presented with complaints of fever, confusion and some shortness of breath x 3 days. Patient still has her port in place on the right side of her chest. As per her patient has also been complaining of some pain at the site of the port. T-max at home has been 102.5. In the emergency room upon arrival temperature was 101.5. - At admission she was noted to have dehydration and hyponatremia which improved with IVF - Pt found to have staph aureus line sepsis - Blood cx, peripheral (01/30) with 4/4 MSSA - Blood cx, drawn from port (01/30) with 2/2 MSSA - Port was removed on 01/31 - Repeat blood cx's on 02/01 and 02/02 still MSSA - Repeat blood cx's on 02/03 with no growth x 4 days - 2D echo (02/01)--> mildly dilated LV, estimated EF 55-60%, trace to mild mitral valve regurg, aortic valve sclerosis, no vegetation noted. - Vancomycin changed to cefazolin on 02/03 - Case discussed with Dr. Jacobson on 02/06 and she is requested Doppler US to evaluate for septic thromboemboli and Cardiology consultation to evaluated with AVERY - Pt underwent evaluation with AVERY (02/07/18) --> Negative for any valvular vegetations - Carotid US conclusion: Abnormal study. Recommend CTA examination of the arch and carotids for definitive evaluation - Neck CTA mild calcified plaque at the carotid bulb regions without a significant stenosis. Mild mixed soft and hard plaque at the mid left carotid artery narrowing the lumen by less than 50%. Calcification seen at the origins of all the great vessels - Left arm PICC line in place and functioning - ID recommending continuing the Cefazolin Q8H x 6 weeks to complete treatment ( complete on 03/15/18) as an outpt - PT daily - Pain control PRN - DVT prophylaxis with Lovenox UTI, acute - She was also noted to have a UTI with culture growing Citrobacter - Levaquin added on 02/03, completed treatment on 02/07 HTN, chronic, stable - Pt resumed on home meds, Lisinopril 10mg daily, Norvasc 2.5mg po daily - Her BP has still been running high - Norvasc stopped on 02/06 and Procardia 30mg po daily started - BP better after morning meds today, continue to monitor, may need further adjustment if evening BPs continue to be elevated - Clonidine PRN GERD, chronic - PPI and Reglan 10mg ACHS - Antiemetics PRN COPD, chronic, stable - Home meds continued - Duonebs Musculoskeletal Chest Pain, acute, improved - Pt received Naprosyn with improvement Chronic anemia - No active bleeding. Pt Condition on Discharge: Stable Discharge Disposition: Disch w/ Home Health Serv Discharge Instructions DIET: Follow Instructions for: Heart Healthy Diet Activities you can perform: Regular-No Restrictions Follow up Referrals: Oncology - [address] Palomo PCP Follow-up - [address] Barraza New Medications: Nifedipine ER 24 HR (Nifedipine ER 24 HR) 30 Mg Tab 30 MG PO DAILY for blood pressure, #30 TAB 0 Refills Continued Medications: Albuterol 18 GM Inh (Ventolin Hfa 18 GM Inh) 90 Mcg/Act Aer 2 PUFF INH Q4-6H PRN for SHORTNESS OF BREATH, #1 INHALER 0 Refills Alendronate (Alendronate) 70 Mg Tab 70 MG PO Q7D for Osteporosis Treatment, #4 TAB 0 Refills Alprazolam (Alprazolam) 0.25 Mg Tab 0.25 MG PO BID PRN for ANXIETY, #15 TAB 0 Refills Atorvastatin (Atorvastatin) 40 Mg Tab 40 MG PO HS for Cholesterol Management, #30 TAB 0 Refills Tktyresrz-Bhafmzvnszu-Gycgjmj (Osteo Bi-Flex One A Day) 1 Tab 1 TAB PO BID, TAB Budesonide DR (Budesonide DR) 3 Mg Capdr 3 MG PO DAILY, #60 CAP 0 Refills Calcium Carbonate-Vitamin D (Calcium + D3) 600-200 Mg-Unit Tab 1 TAB CHEW BID, TAB Escitalopram (Escitalopram) 20 Mg Tab 20 MG PO DAILY, #30 TAB 0 Refills Lactobacillus Acidophilus (Probiotic) 10 Billion Cell Cap 1 CAP PO TIDAC for Nutritional Supplement, #90 CAP 0 Refills Lisinopril (Lisinopril) 10 Mg Tab 10 MG PO DAILY, #30 TAB 0 Refills Magnesium Oxide (Magnesium Oxide) 500 Mg Tab 500 MG PO DAILY, TAB 0 Refills Omeprazole (Omeprazole) 20 Mg Tab 20 MG PO DAILY, #30 TAB 0 Refills Oxybutynin (Ditropan) 5 Mg Tab 5 MG PO Q12HR for Urinary Symptom Managemen, #60 TAB 0 Refills Umeclidinium [place] Inh (Incruse Ellipta Inh) 0.0625 Mg/Act Inh 62.5 MCG INH DAILY for Treat COPD, #1 INHALER 0 Refills Discontinued Medications: Amlodipine (Amlodipine) 2.5 Mg Tab 2.5 MG PO DAILY for Blood Pressure Management, #30 TAB 0 Refills Levofloxacin (Levaquin) 500 Mg Tablet 500 MG PO DAILY for Infection for 7 Days, #7 TAB 0 Refills Mariana Badillo Feb 08, 2018 10:46
[2018-02-08 12:08] VITALS: BP 151/73; PULSE 71; RESP 18; TEMP 98.2; O2SAT 95
[2018-02-08] MEDS: ACETAMINOPHEN/HYDROcodone 325 MG/10 MG TAB PO PRN (13:16)
== END 2018-02-08 15:30 | disposition home health service (06) | DRG 314 ==
LOC: NEPC 03:43 → NEDA 05:19 → NEDH 09:01 → N05B 01-31 15:57
PROVIDERS: ADMIT Hospitalist; ATTEND Hospitalist
PROC: 0JPT0WZ Removal of Totally Implantable Vascular Access Device from Trunk Subcutaneous Tissue and Fascia, Open Approach (ICD-10-PCS; principal; 2018-01-31)
PROC: B246ZZ4 Ultrasonography of Right and Left Heart, Transesophageal (ICD-10-PCS; 2018-02-07)
DX: T80.211A Bloodstream infection due to central venous catheter, initial encounter (principal); A41.01 Sepsis due to Methicillin susceptible Staphylococcus aureus; J44.9 Chronic obstructive pulmonary disease, unspecified; E87.1 Hypo-osmolality and hyponatremia; N39.0 Urinary tract infection, site not specified; J98.11 Atelectasis; I10 Essential (primary) hypertension; K21.9 Gastro-esophageal reflux disease without esophagitis; E86.0 Dehydration; E78.5 Hyperlipidemia, unspecified; K30 Functional dyspepsia; D64.9 Anemia, unspecified; I08.0 Rheumatic disorders of both mitral and aortic valves; R07.89 Other chest pain; I65.23 Occlusion and stenosis of bilateral carotid arteries; M19.90 Unspecified osteoarthritis, unspecified site; F41.8 Other specified anxiety disorders; Y84.8 Other medical procedures as the cause of abnormal reaction of the patient, or of later complication, without mention of misadventure at the time of the procedure; Z85.41 Personal history of malignant neoplasm of cervix uteri; Z85.42 Personal history of malignant neoplasm of other parts of uterus; Z87.891 Personal history of nicotine dependence; Z88.0 Allergy status to penicillin; Z96.652 Presence of left artificial knee joint; Z92.21 Personal history of antineoplastic chemotherapy
CPT/HCPCS: 36569; 36590; 70450; 70498; 71045; 76937; 80048; 80053; 80202; 81001; 83605; 83690; 83735; 84100; 84132; 85007; 85025; 85027; 86403; 87040; 87077; 87086; 87147; 87186; 87205; 87804; 93306; 93312; 93320; 93325; 93880; 93971; 94640; 94664; 96374; J0690; J1642; J1650; J2060; J2405; J3010; J3370; J3480; J7030; J7040; J7050; Q9967